=== PATIENT | male | born 1960 | race Caucasian/White ===

== ENCOUNTER 2017-12-28 20:13 | Inpatient (IN) | payer MEDICAID ==
[~2017-12-28] VITALS: Ht 162.6 cm; Wt 59.1 kg
[2017-12-28] MEDS ORDERED: albuterol 2.5 MG/3 ML nebule ONE (20:25)
[2017-12-28] MEDS ORDERED: albuterol 2.5 MG/3 ML nebule CONTNEB PRN (20:25)
[2017-12-28] MEDS ORDERED: albuterol 2.5 MG/3 ML nebule CONTNEB ONE (20:25)
[2017-12-28] MEDS ORDERED: methylPREDNISolone sod succ 125mg/2ml vial IV ONE (20:25)
[2017-12-28] MEDS ORDERED: normal saline 1000ML IV soln IVB ONE ×2 (20:35→21:05)
[2017-12-28] MEDS ORDERED: magnesium 4gm in 100ml NS 100 ML IV ONE (20:35)
[2017-12-28] MEDS: magnesium 1gm/100ml D5W IVPB 100 ML IV SCH ×2 (20:35→21:35)
[2017-12-28 20:44] LABS: BASOPHILS # (AUTO) 0.1 X10'3 (0-0.2); BASOPHILS % (AUTO) 0.7 % (0-1); EOSINOPHILS # (AUTO) 1.2 X10'3 (0-0.9); EOSINOPHILS % (AUTO) 12.8 % (0-6); HEMATOCRIT 46.4 % (42.0-52.0); HEMOGLOBIN 15.8 g/dl (14.0-17.9); LYMPHOCYTES # (AUTO) 3.2 X10'3 (1.1-4.8); LYMPHOCYTES % (AUTO) 35.3 % (21-51); MEAN CORPUSCULAR HEMOGLOBIN 29.5 PG (27.0-31.0); MEAN CORPUSCULAR HGB CONC 34.1 % (33.0-36.5); MEAN CORPUSCULAR VOLUME 86.4 FL (78-98); MEAN PLATELET VOLUME 6.3 FL (7.4-10.4); MONOCYTES # (AUTO) 0.9 X10'3 (0-0.9); MONOCYTES % (AUTO) 9.6 % (2-12); NEUTROPHILS # (AUTO) 3.8 X10'3 (1.8-7.7); NEUTROPHILS % (AUTO) 41.6 % (42-75); PLATELET COUNT 346 X10'3 (140-440); RED BLOOD COUNT 5.37 X10'6 (4.70-6.10); RED CELL DISTRIBUTION WIDTH 13.4 % (11.5-14.5); WHITE BLOOD COUNT 9.1 X10'3 (4.5-11.0)
[2017-12-28 20:51] LABS: ALANINE AMINOTRANSFERASE 36 U/L (12-78); ALBUMIN 4.5 G/DL (3.4-5.0); ALBUMIN/GLOBULIN RATIO 1.3 (1.1-1.5); ALKALINE PHOSPHATASE 92 IU/L (46-116); ANION GAP 11 (8-16); ASPARTATE AMINO TRANSFERASE 31 U/L (10-37); BILIRUBIN,TOTAL 0.4 MG/DL (0.1-1.0); BLOOD UREA NITROGEN 15 MG/DL (7-18); BUN/CREATININE RATIO 14.9 (5.4-32.0); CALCIUM 9.8 MG/DL (8.5-10.1); CHLORIDE 103 MMOL/L (99-107); CREATININE 1.01 MG/DL (0.60-1.10); GLUCOSE 102 MG/DL (70-104); SODIUM 143 MMOL/L (135-145); TOTAL CARBON DIOXIDE 29.3 MMOL/L (24-32); eGFR 76 ML/MIN
[2017-12-28 21:21] LABS: ETHANOL < 0.010 GM/DL (0.0-0.010)
[2017-12-28] MEDS ORDERED: HYDR-565 PO (21:57)
[2017-12-28] MEDS ORDERED: QUET-1 PO (21:57)
[2017-12-28] MEDS ORDERED: ALBU8HFA PO (21:57)
[2017-12-28] MEDS ORDERED: LISI-600 PO (21:57)
[2017-12-28] MEDS ORDERED: FLUO20CA39 PO (21:57)
[2017-12-28 22:15] LABS: URINE AMPHETAMINE SCREEN NEGATIVE (Neg); URINE BARBITUATE SCREEN NEGATIVE (Neg); URINE BENZODIAZEPINES SCREEN NEGATIVE (Neg); URINE CANNABINOID SCREEN POSITIVE (Neg); URINE COCAINE SCREEN NEGATIVE (Neg); URINE METHADONE SCREEN NEGATIVE (Neg); URINE OPIATE SCREEN POSITIVE (Neg); URINE PHENCYCLIDINE SCREEN NEGATIVE (Neg)
[2017-12-28] MEDS ORDERED: magnesium hydroxide 30ml (MOM) UD suspension PO PRN (22:30)
[2017-12-28] MEDS ORDERED: mag hydrox/Alum hydrox/simeth 30ml oral suspension PO PRN (22:30)
[2017-12-28] MEDS ORDERED: acetaminophen 325mg tablet PO PRN ×2 (22:30)
[2017-12-28] MEDS ORDERED: ondansetron/PF 4mg/2ml inj IV PRN (22:30)
[2017-12-28] MEDS ORDERED: LORazepam 2 mg/ml vial IV ONE (23:00)
[2017-12-28] MEDS ORDERED: morphine 2 MG/ML inj. syringe IV PRN (23:00)
[2017-12-28] MEDS: levoFLOXACIN 750MG TABLET PO SCH (23:03)
[2017-12-29] MEDS: HYDROcodone/acetaminophen 10/325mg tab PO SCH ×4 (02:00→20:06)
[2017-12-29] MEDS: methylPREDNISolone sod succ/PF 40mg inj. IV SCH ×4 (02:02→20:06)
[2017-12-29] MEDS: ipratropium/albuterol 3ml nebule NEB PRN ×3 (05:21→15:11)
[2017-12-29] MEDS: quetiapine 100mg tablet PO SCH (07:56)
[2017-12-29] MEDS: FLUoxetine 20mg capsule PO SCH (07:56)
[2017-12-29] MEDS: enoxaparin 40mg/0.4ml syringe SUBCUT SCH (07:57)
[2017-12-29] MEDS: lisinopril 20mg tablet PO SCH (07:57)
[2017-12-29 09:00] VITALS: BP 121/75
[2017-12-29 10:00] LABS: BASOPHILS % (AUTO) 0.1 % (0-1); EOSINOPHILS # (AUTO) 0.1 X10'3 (0-0.9); EOSINOPHILS % (AUTO) 1.2 % (0-6); HEMATOCRIT 39.4 % (42.0-52.0); HEMOGLOBIN 13.3 g/dl (14.0-17.9); LYMPHOCYTES # (AUTO) 0.6 X10'3 (1.1-4.8); LYMPHOCYTES % (AUTO) 5.2 % (21-51); MEAN CORPUSCULAR HEMOGLOBIN 29.6 PG (27.0-31.0); MEAN CORPUSCULAR HGB CONC 33.7 % (33.0-36.5); MEAN CORPUSCULAR VOLUME 87.9 FL (78-98); MEAN PLATELET VOLUME 6.5 FL (7.4-10.4); MONOCYTES # (AUTO) 0.1 X10'3 (0-0.9); MONOCYTES % (AUTO) 0.6 % (2-12); NEUTROPHILS % (AUTO) 92.9 % (42-75); PLATELET COUNT 291 X10'3 (140-440); RED BLOOD COUNT 4.48 X10'6 (4.70-6.10); RED CELL DISTRIBUTION WIDTH 13.6 % (11.5-14.5); WHITE BLOOD COUNT 11.9 X10'3 (4.5-11.0)
[2017-12-29 10:45] LABS: ALBUMIN 3.5 G/DL (3.4-5.0); ANION GAP 13 (8-16); BLOOD UREA NITROGEN 16 MG/DL (7-18); CALCIUM 8.7 MG/DL (8.5-10.1); CHLORIDE 105 MMOL/L (99-107); GLUCOSE 153 MG/DL (70-104); POTASSIUM 3.8 MMOL/L (3.5-5.1); SODIUM 141 MMOL/L (135-145); TOTAL CARBON DIOXIDE 22.7 MMOL/L (24-32); eGFR > 90 ML/MIN
[2017-12-29 11:00] VITALS: BP 101/61
[2017-12-29] MEDS: levoFLOXACIN 750MG TABLET PO SCH (11:16)
[2017-12-29] MEDS ORDERED: TIOT18CA3 PO (12:34)
[2017-12-29] MEDS ORDERED: QUET25TA34 PO (12:34)
[2017-12-29] MEDS ORDERED: ALBU18HF2 INH (12:34)
[2017-12-29] MEDS ORDERED: OMEP-50 PO (12:34)
[2017-12-29] MEDS ORDERED: FLUO-1 PO (12:34)
[2017-12-29] MEDS ORDERED: PRAV40TA3 PO (12:34)
[2017-12-29] MEDS ORDERED: BACL20TA2 PO (12:34)
[2017-12-29] MEDS ORDERED: GABA-532 PO (12:34)
[2017-12-29] MEDS ORDERED: ASPI-1130 PO (12:34)
[2017-12-29] MEDS ORDERED: PROM25TA14 PO (12:34)
[2017-12-29 15:00] VITALS: BP 102/72
[2017-12-29 19:00] VITALS: BP 126/92
[2017-12-29] MEDS: lactobacillus rhamnosus 10,000 MMU CELLS/CAPSULE PO SCH (20:06)
[2017-12-29] MEDS: gabapentin 300mg capsule PO SCH (21:29)
[2017-12-29] MEDS: QUEtiapine 25mg tablet PO SCH (21:30)
[2017-12-29] MEDS: atorvastatin 20mg tablet PO SCH (21:30)
[2017-12-29 23:00] VITALS: BP 137/52
[2017-12-30] MEDS: methylPREDNISolone sod succ/PF 40mg inj. IV SCH ×3 (01:41→15:56)
[2017-12-30] MEDS: HYDROcodone/acetaminophen 10/325mg tab PO SCH ×4 (01:41→19:56)
[2017-12-30 03:00] VITALS: BP 108/62
[2017-12-30 06:00] VITALS: BP 114/67
[2017-12-30 06:07] LABS: ALBUMIN 3.5 G/DL (3.4-5.0); ANION GAP 11 (8-16); BLOOD UREA NITROGEN 20 MG/DL (7-18); BUN/CREATININE RATIO 24.1 (5.4-32.0); CALCIUM 8.9 MG/DL (8.5-10.1); CHLORIDE 105 MMOL/L (99-107); CREATININE 0.83 MG/DL (0.60-1.10); GLUCOSE 153 MG/DL (70-104); POTASSIUM 4.3 MMOL/L (3.5-5.1); SODIUM 141 MMOL/L (135-145); eGFR > 90 ML/MIN
[2017-12-30 06:23] LABS: BASOPHILS % (AUTO) 0.2 % (0-1); EOSINOPHILS # (AUTO) 0.2 X10'3 (0-0.9); HEMATOCRIT 38.7 % (42.0-52.0); HEMOGLOBIN 12.9 g/dl (14.0-17.9); LYMPHOCYTES # (AUTO) 0.8 X10'3 (1.1-4.8); LYMPHOCYTES % (AUTO) 3.7 % (21-51); MEAN CORPUSCULAR HEMOGLOBIN 29.7 PG (27.0-31.0); MEAN CORPUSCULAR HGB CONC 33.5 % (33.0-36.5); MEAN CORPUSCULAR VOLUME 88.8 FL (78-98); MEAN PLATELET VOLUME 6.7 FL (7.4-10.4); MONOCYTES # (AUTO) 0.5 X10'3 (0-0.9); MONOCYTES % (AUTO) 2.7 % (2-12); NEUTROPHILS # (AUTO) 18.7 X10'3 (1.8-7.7); NEUTROPHILS % (AUTO) 92.4 % (42-75); PLATELET COUNT 308 X10'3 (140-440); RED BLOOD COUNT 4.36 X10'6 (4.70-6.10); RED CELL DISTRIBUTION WIDTH 13.8 % (11.5-14.5); WHITE BLOOD COUNT 20.3 X10'3 (4.5-11.0)
[2017-12-30] MEDS: quetiapine 100mg tablet PO SCH (08:00)
[2017-12-30] MEDS: QUEtiapine 25mg tablet PO SCH ×2 (08:00→19:55)
[2017-12-30] MEDS: FLUoxetine 20mg capsule PO SCH (08:06)
[2017-12-30] MEDS: lisinopril 20mg tablet PO SCH (08:06)
[2017-12-30] MEDS: lactobacillus rhamnosus 10,000 MMU CELLS/CAPSULE PO SCH ×2 (08:08→19:56)
[2017-12-30] MEDS: enoxaparin 40mg/0.4ml syringe SUBCUT SCH (08:08)
[2017-12-30] MEDS: ipratropium/albuterol 3ml nebule NEB PRN ×2 (09:01→21:14)
[2017-12-30 11:00] VITALS: BP 131/90
[2017-12-30] MEDS: levoFLOXACIN 750MG TABLET PO SCH (11:20)
[2017-12-30 15:00] VITALS: BP 128/89
[2017-12-30 19:00] VITALS: BP 119/75
[2017-12-30] MEDS: atorvastatin 20mg tablet PO SCH (22:14)
[2017-12-30] MEDS: gabapentin 300mg capsule PO SCH (22:14)
[2017-12-31] MEDS: methylPREDNISolone sod succ/PF 40mg inj. IV SCH ×3 (01:21→16:00)
[2017-12-31] MEDS: HYDROcodone/acetaminophen 10/325mg tab PO SCH ×4 (02:04→20:02)
[2017-12-31 03:00] VITALS: BP 115/78
[2017-12-31 06:00] VITALS: BP 127/87
[2017-12-31 06:36] LABS: BASOPHILS % (AUTO) 0 % (0-1); EOSINOPHILS # (AUTO) 0.2 X10'3 (0-0.9); EOSINOPHILS % (AUTO) 1.3 % (0-6); HEMATOCRIT 40.4 % (42.0-52.0); HEMOGLOBIN 13.6 g/dl (14.0-17.9); LYMPHOCYTES # (AUTO) 0.9 X10'3 (1.1-4.8); LYMPHOCYTES % (AUTO) 4.8 % (21-51); MEAN CORPUSCULAR HEMOGLOBIN 29.9 PG (27.0-31.0); MEAN CORPUSCULAR HGB CONC 33.6 % (33.0-36.5); MEAN CORPUSCULAR VOLUME 88.9 FL (78-98); MEAN PLATELET VOLUME 6.5 FL (7.4-10.4); MONOCYTES # (AUTO) 0.5 X10'3 (0-0.9); MONOCYTES % (AUTO) 2.6 % (2-12); NEUTROPHILS # (AUTO) 17.1 X10'3 (1.8-7.7); NEUTROPHILS % (AUTO) 91.3 % (42-75); PLATELET COUNT 327 X10'3 (140-440); RED BLOOD COUNT 4.54 X10'6 (4.70-6.10); RED CELL DISTRIBUTION WIDTH 14.2 % (11.5-14.5); WHITE BLOOD COUNT 18.8 X10'3 (4.5-11.0)
[2017-12-31 06:43] LABS: ALBUMIN 3.5 G/DL (3.4-5.0); ANION GAP 11 (8-16); BLOOD UREA NITROGEN 21 MG/DL (7-18); BUN/CREATININE RATIO 26.6 (5.4-32.0); CALCIUM 8.9 MG/DL (8.5-10.1); CHLORIDE 103 MMOL/L (99-107); CREATININE 0.79 MG/DL (0.60-1.10); GLUCOSE 136 MG/DL (70-104); POTASSIUM 4.2 MMOL/L (3.5-5.1); SODIUM 142 MMOL/L (135-145); TOTAL CARBON DIOXIDE 28.2 MMOL/L (24-32); eGFR > 90 ML/MIN
[2017-12-31] MEDS: lisinopril 20mg tablet PO SCH (08:42)
[2017-12-31] MEDS: FLUoxetine 20mg capsule PO SCH (08:42)
[2017-12-31] MEDS: lactobacillus rhamnosus 10,000 MMU CELLS/CAPSULE PO SCH ×2 (08:42→20:01)
[2017-12-31] MEDS: enoxaparin 40mg/0.4ml syringe SUBCUT SCH (08:42)
[2017-12-31] MEDS: ipratropium/albuterol 3ml nebule NEB PRN ×2 (08:54→14:29)
[2017-12-31 11:00] VITALS: BP 122/84
[2017-12-31] MEDS: levoFLOXACIN 750MG TABLET PO SCH (11:26)
[2017-12-31 15:00] VITALS: BP 132/88
[2017-12-31 19:00] VITALS: BP 120/89
[2017-12-31] MEDS: QUEtiapine 25mg tablet PO SCH (20:01)
[2017-12-31] MEDS: atorvastatin 20mg tablet PO SCH (20:18)
[2017-12-31] MEDS: gabapentin 300mg capsule PO SCH (20:18)
[2017-12-31 22:00] VITALS: BP 124/83
[2018-01-01] MEDS: methylPREDNISolone sod succ/PF 40mg inj. IV SCH ×2 (00:09→08:21)
[2018-01-01] MEDS: HYDROcodone/acetaminophen 10/325mg tab PO SCH ×2 (02:06→08:22)
[2018-01-01 03:00] VITALS: BP 127/86
[2018-01-01 06:00] VITALS: BP 116/80
[2018-01-01 07:03] LABS: BASOPHILS % (AUTO) 0.1 % (0-1); EOSINOPHILS # (AUTO) 0.1 X10'3 (0-0.9); EOSINOPHILS % (AUTO) 1.1 % (0-6); HEMATOCRIT 40.8 % (42.0-52.0); HEMOGLOBIN 13.6 g/dl (14.0-17.9); LYMPHOCYTES % (AUTO) 8.2 % (21-51); MEAN CORPUSCULAR HEMOGLOBIN 29.4 PG (27.0-31.0); MEAN CORPUSCULAR HGB CONC 33.3 % (33.0-36.5); MEAN CORPUSCULAR VOLUME 88.3 FL (78-98); MEAN PLATELET VOLUME 6.2 FL (7.4-10.4); MONOCYTES # (AUTO) 0.4 X10'3 (0-0.9); MONOCYTES % (AUTO) 3.5 % (2-12); NEUTROPHILS # (AUTO) 10.8 X10'3 (1.8-7.7); NEUTROPHILS % (AUTO) 87.1 % (42-75); PLATELET COUNT 325 X10'3 (140-440); RED BLOOD COUNT 4.63 X10'6 (4.70-6.10); WHITE BLOOD COUNT 12.4 X10'3 (4.5-11.0)
[2018-01-01 07:17] LABS: ALBUMIN 3.4 G/DL (3.4-5.0); ANION GAP 7 (8-16); BLOOD UREA NITROGEN 20 MG/DL (7-18); BUN/CREATININE RATIO 23.5 (5.4-32.0); CALCIUM 8.7 MG/DL (8.5-10.1); CHLORIDE 104 MMOL/L (99-107); CREATININE 0.85 MG/DL (0.60-1.10); GLUCOSE 139 MG/DL (70-104); POTASSIUM 4.2 MMOL/L (3.5-5.1); SODIUM 141 MMOL/L (135-145); TOTAL CARBON DIOXIDE 29.8 MMOL/L (24-32); eGFR > 90 ML/MIN
[2018-01-01] MEDS: ipratropium/albuterol 3ml nebule NEB PRN (07:52)
[2018-01-01] MEDS: FLUoxetine 20mg capsule PO SCH (08:21)
[2018-01-01] MEDS: lisinopril 20mg tablet PO SCH (08:21)
[2018-01-01] MEDS: lactobacillus rhamnosus 10,000 MMU CELLS/CAPSULE PO SCH (08:21)
[2018-01-01] MEDS: enoxaparin 40mg/0.4ml syringe SUBCUT SCH (08:22)
[2018-01-01] MEDS ORDERED: LEVO500T2 PO (09:37)
[2018-01-01] MEDS ORDERED: PRED10TA23 PO (09:37)
[2018-01-01] MEDS: levoFLOXACIN 750MG TABLET PO SCH (11:00)
== END 2018-01-01 11:31 | disposition home or self-care (01) | DRG 140 ==
LOC: ER 20:15 → ED HOLD 22:30 → PCU 3S 12-29 08:55
PROVIDERS: ADMIT Internal Medicine; ATTEND Family Medicine
DX: J44.1 Chronic obstructive pulmonary disease with (acute) exacerbation (principal); J96.21 Acute and chronic respiratory failure with hypoxia; Z99.81 Dependence on supplemental oxygen; J44.0 Chronic obstructive pulmonary disease with (acute) lower respiratory infection; F32.9 Major depressive disorder, single episode, unspecified; F41.9 Anxiety disorder, unspecified; G89.4 Chronic pain syndrome; I10 Essential (primary) hypertension; J20.9 Acute bronchitis, unspecified; M54.5 Low back pain; M16.11 Unilateral primary osteoarthritis, right hip; Z82.5 Family history of asthma and other chronic lower respiratory diseases; Z87.891 Personal history of nicotine dependence; Z79.899 Other long term (current) drug therapy
CPT/HCPCS: 36415; 71045; 80048; 80053; 80305; 80320; 83880; 84484; 85025; 87070; 93005; 94640; 94760; 96365; 96375; 99291; A6258; J1650; J2060; J2405; J2920; J2930; J3475; J7030

== ENCOUNTER 2018-09-04 01:10 | Inpatient (IN) | payer MEDICAID ==
[2018-09-04] VITALS (20 sets, daily range): BP systolic 90–126; BP diastolic 54–98
[~2018-09-04] VITALS: Ht 162.6 cm; Wt 68.4 kg
[~2018-09-04 01:10] MED LIST: ALBU18HF2 INH; ALBU8HFA PO; ASPI-1130 PO; BACL20TA2 PO; FLUO20CA39 PO; GABA-532 PO; HYDR-4353 PO; LISI-600 PO; OMEP-50 PO; PRAV40TA3 PO; PROM25TA14 PO; QUET-1 PO; QUET25TA34 PO; TIOT18CA3 PO
--- NOTE | 2018-09-04 01:22 | NUR ---
patient intubated. OG tube inserted, Dr. Winkler inserting central line now.
[2018-09-04] MEDS ORDERED: dexamethasone sod phosphate 10mg/ml inj IV STA (01:26)
[2018-09-04] MEDS ORDERED: albuterol 2.5 MG/3 ML nebule ONE (01:28)
[2018-09-04] MEDS ORDERED: MIDAZolam 5mg/ml 2ml vial IV ONE (01:30)
[2018-09-04] MEDS ORDERED: albuterol 2.5 MG/3 ML nebule NEB ONE (01:35)
[2018-09-04] MEDS: propofol 1000mg/100ml bottle 100 ML IV PRN ×2 (01:52→04:57)
[2018-09-04 02:06] LABS: ABG BASE EXCESS -3.5 mmol/L (-2.0-3.0); ABG HCO3 25.1 mmol/L (22.0-26.0); ABG OXYGEN SATURATION 95.6 % (95-98); ABG PH (T) 7.242 (7.350-7.450); ABG PO2 (T) 86.6 mmHg (83-108); FCOHb 0.4 % (0.5-1.5); FMetHb 0.3 % (0.3-1.12); FO2Hb 94.9 % (94-100); MINUTE VOLUME 8 L/min; PATIENT TEMPERATURE 36.2; PEEP 5 cm H2O; RESPIRATORY RATE 20 b/min; RESPIRATORY RATE (OBSERVED) 20 b/min; TIDAL VOLUME 426 mL
[2018-09-04 02:15] LABS: BASOPHILS # (AUTO) 0.1 X10'3 (0-0.2); BASOPHILS % (AUTO) 0.8 % (0-1); EOSINOPHILS # (AUTO) 0.8 X10'3 (0-0.9); EOSINOPHILS % (AUTO) 11.9 % (0-6); HEMATOCRIT 40.2 % (42.0-52.0); HEMOGLOBIN 12.9 g/dl (14.0-17.9); LYMPHOCYTES # (AUTO) 2.9 X10'3 (1.1-4.8); LYMPHOCYTES % (AUTO) 40.2 % (21-51); MEAN CORPUSCULAR HEMOGLOBIN 26.9 PG (27.0-31.0); MEAN CORPUSCULAR HGB CONC 32.2 g/dL (33.0-36.5); MEAN CORPUSCULAR VOLUME 83.6 FL (78-98); MEAN PLATELET VOLUME 6.3 FL (7.4-10.4); MONOCYTES # (AUTO) 0.7 X10'3 (0-0.9); MONOCYTES % (AUTO) 9.2 % (2-12); NEUTROPHILS # (AUTO) 2.7 X10'3 (1.8-7.7); NEUTROPHILS % (AUTO) 37.9 % (42-75); PLATELET COUNT 312 X10'3 (140-440); RED BLOOD COUNT 4.81 X10'6 (4.70-6.10); RED CELL DISTRIBUTION WIDTH 14.8 % (11.5-14.5); WHITE BLOOD COUNT 7.1 X10'3 (4.5-11.0)
[2018-09-04 02:15] LABS: CLARITY,URINE SLIGHTLY CLOUDY (Clear); COLOR,URINE YELLOW (Yellow); GLUCOSE, URINE NEGATIVE (Neg); KETONES,URINE NEGATIVE (Neg); LEUKOCYTE ESTERASE ,URINE NEGATIVE (Neg); NITRITES, URINE NEGATIVE (Neg); OCCULT BLOOD,URINE SMALL (Neg); PH,URINE 5.5 (4.8-8.0); PROTEIN,URINE 30 mg/dl (Neg); UROBILINOGEN,URINE 0.2 E.U/dL (0.2-1.0)
[2018-09-04 02:16] LABS: UA COLLECTION TYPE FOLEY CATH
[2018-09-04 02:21] LABS: BACTERIA,URINE FEW /HPF (Neg); MUCUS STRANDS MODERATE /LPF (Neg); RBC,URINE 0-2 /HPF (0-2); SQUAMOUS EPITHELIAL CELL,UR FEW /LPF (FEW)
[2018-09-04 02:22] LABS: TRANSITIONAL EPI CELLS,URINE FEW /HPF; WBC,URINE 0-4 /HPF (0-4)
[2018-09-04 02:23] LABS: ALANINE AMINOTRANSFERASE 23 U/L (12-78); ALBUMIN 3.7 G/DL (3.4-5.0); ALBUMIN/GLOBULIN RATIO 1.2 (1.1-1.5); ALKALINE PHOSPHATASE 68 IU/L (46-116); ANION GAP 10 (8-16); ASPARTATE AMINO TRANSFERASE 23 U/L (10-37); BILIRUBIN,TOTAL 0.3 MG/DL (0.1-1.0); BLOOD UREA NITROGEN 20 MG/DL (7-18); BUN/CREATININE RATIO 24.7 (5.4-32.0); CHLORIDE 104 MMOL/L (99-107); CREATININE 0.81 MG/DL (0.60-1.10); GLUCOSE 134 MG/DL (70-104); SODIUM 141 MMOL/L (135-145); TOTAL CARBON DIOXIDE 27.2 MMOL/L (24-32); TOTAL PROTEIN 6.7 G/DL (6.4-8.2); eGFR > 90 ML/MIN
[2018-09-04 02:24] LABS: POTASSIUM 3.5 MMOL/L (3.5-5.1)
[2018-09-04 02:26] LABS: PARTIAL THROMBOPLASTIN TIME 21 SECONDS (22-32)
[2018-09-04] MEDS ORDERED: midazolam 100mg in NS 100ml 100 ML IV PRN (02:28)
[2018-09-04] MEDS ORDERED: midazolam 2 mg/2 ml injection IV ONE (02:30)
[2018-09-04 02:31] LABS: MAGNESIUM 1.7 MG/DL (1.5-2.4); PHOSPHORUS 5.2 MG/DL (2.3-4.5); TRIGLYCERIDES 171 MG/DL (20-135)
[2018-09-04] MEDS ORDERED: albuterol 2.5 MG/3 ML nebule NEB PRN (02:50)
[2018-09-04] MEDS ORDERED: magnesium hydroxide 30ml (MOM) UD suspension PO PRN (02:50)
[2018-09-04] MEDS ORDERED: acetaminophen 325mg tablet PO PRN ×2 (02:50)
[2018-09-04] MEDS ORDERED: magnesium 4gm in 100ml NS 100 ML IV PRN (02:50)
[2018-09-04] MEDS ORDERED: magnesium Cl slow-release 64mg tablet PO PRN (02:50)
[2018-09-04] MEDS ORDERED: ondansetron/PF 4mg/2ml inj IV PRN (02:50)
[2018-09-04] MEDS ORDERED: magnesium 2GM in 50ml NS 50 ML IV PRN (02:50)
[2018-09-04] MEDS ORDERED: acetaminophen 650mg rectal suppository RC PRN (02:50)
[2018-09-04 03:56] LABS: TROPONIN I < 0.04 NG/ML (0.0-0.05)
[2018-09-04 04:01] LABS: D-DIMER 5.76 MG/L FEU (0-0.50)
[2018-09-04] MEDS: ipratropium/albuterol 3ml nebule NEB SCH ×6 (04:11→22:59)
[2018-09-04] MEDS: normal saline 1000ml 1,000 ML IV SCH ×2 (04:25→16:13)
[2018-09-04] MEDS: midazolam 100mg in NS 100ml 100 ML IV PRN ×2 (04:26→22:04)
[2018-09-04] MEDS: levoFLOXACIN-Levaquin 500mg/D5 100 ML IV SCH ×2 (04:26→08:13)
[2018-09-04] MEDS: FENTANYL-0.9 % NACL/PF 100 ML IV PRN (04:27)
[2018-09-04 05:01] LABS: ABG BASE EXCESS 0.1 mmol/L (-2.0-3.0); ABG HCO3 20.9 mmol/L (22.0-26.0); ABG OXYGEN SATURATION 93.9 % (95-98); ABG PCO2 (T) 24.1 mmHg (35.0-48.0); ABG PH (T) 7.556 (7.350-7.450); ABG PO2 (T) 56.8 mmHg (83-108); ALLEN'S TEST Positive; FCOHb 0.3 % (0.5-1.5); FMetHb 0.1 % (0.3-1.12); FO2Hb 93.5 % (94-100); MINUTE VOLUME 17 L/min; PATIENT TEMPERATURE 36.5; PEEP 5 cm H2O; RESPIRATORY RATE 22 b/min; RESPIRATORY RATE (OBSERVED) 22 b/min; TIDAL VOLUME 710 mL; TOTAL HEMOGLOBIN 13.5 G/dl (14.0-18.0)
[2018-09-04] MEDS ORDERED: rocuronium 10mg/ml inj IV ONE (06:00)
[2018-09-04] MEDS ORDERED: etomidate 2mg/ml inj. ONE (06:00)
--- NOTE | 2018-09-04 06:29 | NUR ---
Patient in room ICU 2041. I have received report from LISA Alicia and had the opportunity to ask questions and assume patient care.
[2018-09-04] MEDS ORDERED: docusate sodium 100mg/10ml UD cup PO SCH (08:00)
[2018-09-04] MEDS: ESOMEPRAZOLE 40 MG VIAL IV SCH (08:13)
[2018-09-04] MEDS: hydrocortisone sod succ/PF 100mg/2ml inj. IV SCH ×2 (08:14→16:13)
[2018-09-04] MEDS: enoxaparin 40mg/0.4ml syringe SUBCUT SCH (08:14)
[2018-09-04] MEDS ORDERED: ALBUTEROL PO PRN (10:35)
[2018-09-04] MEDS ORDERED: acetaminophen 325mg tablet OGT PRN ×2 (10:37)
[2018-09-04] MEDS ORDERED: magnesium hydroxide 30ml (MOM) UD suspension OGT PRN (10:38)
[2018-09-04] MEDS: dexmedetomidin/NS 400mcg/100ml 100 ML IV SCH ×2 (11:24→20:00)
[2018-09-04] MEDS: FLUoxetine 20mg capsule PO SCH (11:25)
[2018-09-04] MEDS: lisinopril 20mg tablet PO SCH (11:25)
[2018-09-04] MEDS: aspirin 81mg tablet.DR PO SCH (11:25)
[2018-09-04] MEDS: quetiapine 100mg tablet PO SCH (11:25)
[2018-09-04] MEDS: gabapentin 300mg capsule PO SCH ×3 (11:25→21:06)
--- NOTE | 2018-09-04 11:41 | NUR ---
TF Consult: OGTF to start today per MD. Pt intubated admit w/ SOB COPD exacerbation. Hx COPD, smoker on home O2, HTN, CVA. Likely extubation tomorrow per MD. Will monitor for TF tolerance; recs below. Rec: 1. OGTF using Vital High Protein at 70ml/hr goal; to provide 1680ml fluid, 1680kcals, 1411ml free water, and 147g protein. Initiate at 20ml/hr and advance 20ml Q8 to goal as tolerated. 2. water flush 150ml Q4 3. prealbumin Q /, daily wts 4. advance diet to heart healthy upon extubation Addendum: 09/04/18 at [address] Amended: Links added.
[2018-09-04] MEDS ORDERED: NORepinephrine 8mg/ 250ml NS 250 ML IV ONE (13:13)
[2018-09-04] MEDS ORDERED: NORepinephrine 8mg/ 250ml NS 250 ML IV SCH (13:25)
[2018-09-04] MEDS ORDERED: normal saline 500ml IV soln 1,000 ML IV SCH (13:25)
--- NOTE | 2018-09-04 18:29 | NUR ---
Problems reprioritized. Patient report given, questions answered & plan of care reviewed with LISA Rodriguez.
--- NOTE | 2018-09-04 18:34 | NUR ---
Patient in room ICU 2041. I have received report from LISA Juan and had the opportunity to ask questions and assume patient care.
[2018-09-04] MEDS: docusate sodium 100mg/10ml UD cup OGT SCH (20:00)
[2018-09-04] MEDS: pravastatin 40mg tablet PO SCH (21:06)
[2018-09-04] MEDS: QUEtiapine 25mg tablet PO SCH (21:06)
[2018-09-05] VITALS (23 sets, daily range): BP systolic 87–156; BP diastolic 54–93
[2018-09-05] MEDS: hydrocortisone sod succ/PF 100mg/2ml inj. IV SCH ×3 (00:32→16:31)
[2018-09-05] MEDS: FENTANYL-0.9 % NACL/PF 100 ML IV PRN (00:33)
[2018-09-05] MEDS: ipratropium/albuterol 3ml nebule NEB SCH ×6 (02:48→23:32)
[2018-09-05 03:06] LABS: ABG BASE EXCESS -3.9 mmol/L (-2.0-3.0); ABG HCO3 20.1 mmol/L (22.0-26.0); ABG PCO2 (T) 33.1 mmHg (35.0-48.0); ABG PH (T) 7.401 (7.350-7.450); ABG PO2 (T) 70.9 mmHg (83-108); ALLEN'S TEST Positive; FCOHb 0.3 % (0.5-1.5); FMetHb 0.2 % (0.3-1.12); FO2Hb 93.5 % (94-100); MINUTE VOLUME 11 L/min; PATIENT TEMPERATURE 36.9; PEEP 5 cm H2O; RESPIRATORY RATE 12 b/min; RESPIRATORY RATE (OBSERVED) 19 b/min; TOTAL HEMOGLOBIN 12.6 G/dl (14.0-18.0)
[2018-09-05 03:30] LABS: BASOPHILS % (AUTO) 0.1 % (0-1); EOSINOPHILS % (AUTO) 0 % (0-6); HEMATOCRIT 34.5 % (42.0-52.0); HEMOGLOBIN 11.3 g/dl (14.0-17.9); LYMPHOCYTES # (AUTO) 1.1 X10'3 (1.1-4.8); LYMPHOCYTES % (AUTO) 8.6 % (21-51); MEAN CORPUSCULAR HEMOGLOBIN 27.2 PG (27.0-31.0); MEAN CORPUSCULAR HGB CONC 32.9 g/dL (33.0-36.5); MEAN CORPUSCULAR VOLUME 82.6 FL (78-98); MEAN PLATELET VOLUME 6.4 FL (7.4-10.4); MONOCYTES # (AUTO) 0.7 X10'3 (0-0.9); NEUTROPHILS # (AUTO) 10.7 X10'3 (1.8-7.7); NEUTROPHILS % (AUTO) 85.3 % (42-75); PLATELET COUNT 281 X10'3 (140-440); RED BLOOD COUNT 4.17 X10'6 (4.70-6.10); WHITE BLOOD COUNT 12.5 X10'3 (4.5-11.0)
[2018-09-05 03:41] LABS: ALANINE AMINOTRANSFERASE 17 U/L (12-78); ALBUMIN 3.2 G/DL (3.4-5.0); ALBUMIN/GLOBULIN RATIO 1.3 (1.1-1.5); ALKALINE PHOSPHATASE 57 IU/L (46-116); ANION GAP 6 (8-16); ASPARTATE AMINO TRANSFERASE 11 U/L (10-37); BILIRUBIN,TOTAL 0.4 MG/DL (0.1-1.0); BLOOD UREA NITROGEN 18 MG/DL (7-18); BUN/CREATININE RATIO 27.3 (5.4-32.0); CALCIUM 8.5 MG/DL (8.5-10.1); CHLORIDE 106 MMOL/L (99-107); CREATININE 0.66 MG/DL (0.60-1.10); GLUCOSE 126 MG/DL (70-104); MAGNESIUM 1.8 MG/DL (1.5-2.4); PHOSPHORUS 2.7 MG/DL (2.3-4.5); POTASSIUM 3.8 MMOL/L (3.5-5.1); PREALBUMIN 24.9 MG/DL (19-36); SODIUM 137 MMOL/L (135-145); TOTAL CARBON DIOXIDE 24.7 MMOL/L (24-32); TOTAL PROTEIN 5.7 G/DL (6.4-8.2); TRIGLYCERIDES 142 MG/DL (20-135); eGFR > 90 ML/MIN
[2018-09-05] MEDS: normal saline 1000ml 1,000 ML IV SCH (05:30)
[2018-09-05] MEDS: dexmedetomidin/NS 400mcg/100ml 100 ML IV SCH (05:41)
--- NOTE | 2018-09-05 06:26 | NUR ---
Problems reprioritized. Patient report given, questions answered & plan of care reviewed with LISA Shah.
--- NOTE | 2018-09-05 06:30 | NUR ---
Patient in room ICU 2041. I have received report from Jennifer GONZALEZ and had the opportunity to ask questions and assume patient care.
[2018-09-05] MEDS ORDERED: TIOTROPIUM BROMIDE 18 MCG PO SCH (08:00)
[2018-09-05] MEDS ORDERED: mineral oil/petrolatum ophthal oint EACHEYE SCH (08:00)
[2018-09-05] MEDS: lisinopril 20mg tablet PO SCH (08:00)
[2018-09-05] MEDS: mineral oil/petrolatum ophthal oint EACHEYE SCH ×3 (08:00→20:00)
[2018-09-05] MEDS: ESOMEPRAZOLE 40 MG VIAL IV SCH (08:53)
[2018-09-05] MEDS: FLUoxetine 20mg capsule PO SCH (08:54)
[2018-09-05] MEDS: enoxaparin 40mg/0.4ml syringe SUBCUT SCH (08:54)
[2018-09-05] MEDS: aspirin 81mg tablet.DR PO SCH (08:54)
[2018-09-05] MEDS: docusate sodium 100mg/10ml UD cup OGT SCH ×2 (08:54→20:33)
[2018-09-05] MEDS: gabapentin 300mg capsule PO SCH ×3 (08:54→20:33)
[2018-09-05] MEDS: quetiapine 100mg tablet PO SCH (08:54)
[2018-09-05] MEDS: levoFLOXACIN-Levaquin 500mg/D5 100 ML IV SCH (08:55)
--- NOTE | 2018-09-05 10:00 | NUR ---
extubated without problems to 2 litre nasal cannula
[2018-09-05] MEDS ORDERED: IBUP-1986 PO (12:39)
[2018-09-05] MEDS ORDERED: HYDR-3686 PO (12:43)
[2018-09-05] MEDS ORDERED: ALBU2.5V10 NEB (13:04)
[2018-09-05] MEDS: HYDROcodone/acetaminophen 10/325mg tab PO PRN ×2 (13:48→20:34)
--- NOTE | 2018-09-05 15:05 | NUR ---
Problems reprioritized. Patient report given, questions answered & plan of care reviewed with Jenna Loyd RN.
--- NOTE | 2018-09-05 18:10 | NUR ---
Patient in room ICU 2041. I have received report from LISA Mobley and had the opportunity to ask questions and assume patient care.
--- NOTE | 2018-09-05 18:18 | NUR ---
Problems reprioritized. Patient report given, questions answered & plan of care reviewed with [].
--- NOTE | 2018-09-05 18:19 | NUR ---
Problems reprioritized. Patient report given, questions answered & plan of care reviewed with Jennifer Cardenas.
[2018-09-05] MEDS: pravastatin 40mg tablet PO SCH (20:33)
[2018-09-05] MEDS: QUEtiapine 25mg tablet PO SCH (20:33)
[2018-09-05] MEDS: lactobacillus rhamnosus 10,000 MMU CELLS/CAPSULE PO SCH (20:33)
[2018-09-06] VITALS (24 sets, daily range): BP systolic 122–156; BP diastolic 79–108
[2018-09-06] MEDS: hydrocortisone sod succ/PF 100mg/2ml inj. IV SCH ×2 (00:08→08:38)
[2018-09-06] MEDS: mineral oil/petrolatum ophthal oint EACHEYE SCH ×3 (02:00→14:00)
[2018-09-06] MEDS: ipratropium/albuterol 3ml nebule NEB SCH ×6 (03:00→23:00)
[2018-09-06] MEDS: HYDROcodone/acetaminophen 10/325mg tab PO PRN ×4 (03:22→20:48)
[2018-09-06 04:02] LABS: BASOPHILS % (AUTO) 0.3 % (0-1); EOSINOPHILS % (AUTO) 0.2 % (0-6); HEMATOCRIT 32.8 % (42.0-52.0); LYMPHOCYTES # (AUTO) 1.4 X10'3 (1.1-4.8); LYMPHOCYTES % (AUTO) 14.1 % (21-51); MEAN CORPUSCULAR HEMOGLOBIN 28.1 PG (27.0-31.0); MEAN CORPUSCULAR HGB CONC 33.5 g/dL (33.0-36.5); MEAN CORPUSCULAR VOLUME 83.9 FL (78-98); MEAN PLATELET VOLUME 6.5 FL (7.4-10.4); MONOCYTES # (AUTO) 0.6 X10'3 (0-0.9); MONOCYTES % (AUTO) 6.3 % (2-12); NEUTROPHILS # (AUTO) 7.9 X10'3 (1.8-7.7); NEUTROPHILS % (AUTO) 79.1 % (42-75); PLATELET COUNT 287 X10'3 (140-440); RED CELL DISTRIBUTION WIDTH 15.3 % (11.5-14.5); WHITE BLOOD COUNT 9.9 X10'3 (4.5-11.0)
[2018-09-06 04:09] LABS: ALANINE AMINOTRANSFERASE 18 U/L (12-78); ALBUMIN 3.2 G/DL (3.4-5.0); ALBUMIN/GLOBULIN RATIO 1.2 (1.1-1.5); ALKALINE PHOSPHATASE 55 IU/L (46-116); ANION GAP 6 (8-16); ASPARTATE AMINO TRANSFERASE 13 U/L (10-37); BILIRUBIN,TOTAL 0.3 MG/DL (0.1-1.0); BLOOD UREA NITROGEN 15 MG/DL (7-18); BUN/CREATININE RATIO 23.8 (5.4-32.0); CALCIUM 8.5 MG/DL (8.5-10.1); CHLORIDE 108 MMOL/L (99-107); CREATININE 0.63 MG/DL (0.60-1.10); GLUCOSE 96 MG/DL (70-104); MAGNESIUM 2.2 MG/DL (1.5-2.4); PHOSPHORUS 2.6 MG/DL (2.3-4.5); POTASSIUM 3.6 MMOL/L (3.5-5.1); SODIUM 141 MMOL/L (135-145); TOTAL CARBON DIOXIDE 27.5 MMOL/L (24-32); TOTAL PROTEIN 5.8 G/DL (6.4-8.2); eGFR > 90 ML/MIN
--- NOTE | 2018-09-06 06:15 | NUR ---
Patient in room ICU 2041. I have received report from materials handler and had the opportunity to ask questions and assume patient care.
--- NOTE | 2018-09-06 06:20 | NUR ---
Problems reprioritized. Patient report given, questions answered & plan of care reviewed with LISA Burnham.
[2018-09-06] MEDS: lisinopril 20mg tablet PO SCH (08:37)
[2018-09-06] MEDS: aspirin 81mg tablet.DR PO SCH (08:37)
[2018-09-06] MEDS: gabapentin 300mg capsule PO SCH ×3 (08:37→20:47)
[2018-09-06] MEDS: lactobacillus rhamnosus 10,000 MMU CELLS/CAPSULE PO SCH ×2 (08:37→20:47)
[2018-09-06] MEDS: FLUoxetine 20mg capsule PO SCH ×2 (08:37→20:00)
[2018-09-06] MEDS: docusate sodium 100mg/10ml UD cup OGT SCH (08:37)
[2018-09-06] MEDS: enoxaparin 40mg/0.4ml syringe SUBCUT SCH (08:38)
[2018-09-06] MEDS: levoFLOXACIN 500mg tablet PO SCH (14:42)
--- NOTE | 2018-09-06 18:11 | NUR ---
Problems reprioritized. Patient report given, questions answered & plan of care reviewed with ONCOMING SHIFT.
--- NOTE | 2018-09-06 18:12 | NUR ---
Patient in room ICU 2041. I have received report from Ana GONZALEZ and had the opportunity to ask questions and assume patient care. Pt resting in bed on 2LNC with spo2 at 96%, Central line and PIV saline locked, all monitoring alarms audible, all personal belongings within reach, non skid socks on, call light in reach. See interventions for further information. Will continue to monitor.
[2018-09-06] MEDS ORDERED: hydrOXYzine 25 MG tablet PO PRN (19:45)
[2018-09-06] MEDS: docusate sod 100mg capsule PO SCH (20:00)
[2018-09-06] MEDS: pravastatin 40mg tablet PO SCH (20:47)
[2018-09-06] MEDS: QUEtiapine 25mg tablet PO SCH (20:47)
--- NOTE | 2018-09-06 21:48 | NUR ---
Bed bath completed, pt awake and watching TV. No s/s of distress. Will continue to monitor.
[2018-09-07] VITALS (7 sets, daily range): BP systolic 118–156; BP diastolic 75–97
[2018-09-07] MEDS: ipratropium/albuterol 3ml nebule NEB SCH ×6 (02:37→23:02)
--- NOTE | 2018-09-07 02:45 | NUR ---
I got report from Verito from the ICU about the patient and I will give a verbal report to Coleen GONZALEZ who is going to be taking care of the patient in room 4013B.
--- NOTE | 2018-09-07 02:46 | NUR ---
Problems reprioritized. Patient report given, questions answered & plan of care reviewed with Marnie GONZALEZ. Pt to transfer to room 6291A.
--- NOTE | 2018-09-07 02:57 | NUR ---
Patient in room ICU 2041. I have received report from LISA Dye and had the opportunity to ask questions and assume patient care.
--- NOTE | 2018-09-07 03:00 | NUR ---
Pt transferred via wheelchair, no tele per orders. pt stable on transfer, all belongings with pt.
[2018-09-07] MEDS: HYDROcodone/acetaminophen 10/325mg tab PO PRN ×4 (03:24→21:18)
[2018-09-07 05:03] LABS: BASOPHILS # (AUTO) 0.1 X10'3 (0-0.2); BASOPHILS % (AUTO) 0.8 % (0-1); EOSINOPHILS # (AUTO) 0.2 X10'3 (0-0.9); EOSINOPHILS % (AUTO) 2.4 % (0-6); HEMOGLOBIN 11.4 g/dl (14.0-17.9); LYMPHOCYTES # (AUTO) 3.4 X10'3 (1.1-4.8); LYMPHOCYTES % (AUTO) 41.3 % (21-51); MEAN CORPUSCULAR HEMOGLOBIN 28.8 PG (27.0-31.0); MEAN CORPUSCULAR HGB CONC 34.5 g/dL (33.0-36.5); MEAN CORPUSCULAR VOLUME 83.5 FL (78-98); MEAN PLATELET VOLUME 6.5 FL (7.4-10.4); MONOCYTES # (AUTO) 0.8 X10'3 (0-0.9); MONOCYTES % (AUTO) 9.6 % (2-12); NEUTROPHILS # (AUTO) 3.8 X10'3 (1.8-7.7); NEUTROPHILS % (AUTO) 45.9 % (42-75); PLATELET COUNT 256 X10'3 (140-440); RED BLOOD COUNT 3.96 X10'6 (4.70-6.10); WHITE BLOOD COUNT 8.2 X10'3 (4.5-11.0)
[2018-09-07 05:50] LABS: ALANINE AMINOTRANSFERASE 21 U/L (12-78); ALBUMIN 3.1 G/DL (3.4-5.0); ALBUMIN/GLOBULIN RATIO 1.1 (1.1-1.5); ALKALINE PHOSPHATASE 54 IU/L (46-116); ANION GAP 6 (8-16); ASPARTATE AMINO TRANSFERASE 15 U/L (10-37); BILIRUBIN,TOTAL 0.2 MG/DL (0.1-1.0); BLOOD UREA NITROGEN 17 MG/DL (7-18); CALCIUM 8.7 MG/DL (8.5-10.1); CHLORIDE 105 MMOL/L (99-107); CREATININE 0.74 MG/DL (0.60-1.10); GLUCOSE 83 MG/DL (70-104); PHOSPHORUS 3.7 MG/DL (2.3-4.5); POTASSIUM 3.3 MMOL/L (3.5-5.1); SODIUM 141 MMOL/L (135-145); TOTAL CARBON DIOXIDE 30.5 MMOL/L (24-32); TOTAL PROTEIN 5.9 G/DL (6.4-8.2); eGFR > 90 ML/MIN
--- NOTE | 2018-09-07 06:15 | NUR ---
Patient in room ORTHO 4013. I have received report from Coleen GONZALEZ and had the opportunity to ask questions and assume patient care.
--- NOTE | 2018-09-07 06:19 | NUR ---
Problems reprioritized. Patient report given, questions answered & plan of care reviewed with LISA Roy.
[2018-09-07] MEDS: docusate sod 100mg capsule PO SCH ×2 (08:00→20:05)
[2018-09-07] MEDS: predniSONE 20 mg tablet PO SCH (08:25)
[2018-09-07] MEDS: gabapentin 300mg capsule PO SCH ×3 (08:25→20:05)
[2018-09-07] MEDS: aspirin 81mg tablet.DR PO SCH (08:25)
[2018-09-07] MEDS: pantoprazole 40mg Tablet.DR PO SCH (08:25)
[2018-09-07] MEDS: lactobacillus rhamnosus 10,000 MMU CELLS/CAPSULE PO SCH ×2 (08:25→20:05)
[2018-09-07] MEDS: FLUoxetine 20mg capsule PO SCH ×2 (08:26→20:05)
[2018-09-07] MEDS: lisinopril 20mg tablet PO SCH (08:27)
[2018-09-07] MEDS: enoxaparin 40mg/0.4ml syringe SUBCUT SCH (08:27)
--- NOTE | 2018-09-07 12:14 | NUR ---
Reassessment: Pt has been extubated and moved to the floors. TF has been d/c'ed and pt now on a CHO controlled diet with documented 75-100% PO intake meeting nutrient needs. Pt with no hx DM, d/w RN changing diet to heart healthy per MD approval. [facility] 09/06. Will continue to follow. Rec: 1. Diet change to heart healthy 2. Wt per rx Addendum: 09/07/18 at [address] Amended: Links added.
[2018-09-07] MEDS: levoFLOXACIN 500mg tablet PO SCH (13:21)
--- NOTE | 2018-09-07 17:07 | NUR ---
called edge inker heels, per edge inker heels, potassium replacement not needed
[2018-09-07] MEDS: potassium Cl 20 mEq SR tablet PO SCH (17:47)
--- NOTE | 2018-09-07 18:37 | NUR ---
Problems reprioritized. Patient report given, questions answered & plan of care reviewed with Pura GONZALEZ.
--- NOTE | 2018-09-07 18:56 | NUR ---
Patient in room ORTHO 4013. I have received report from LEIGH GONZALEZ and had the opportunity to ask questions and assume patient care.
[2018-09-07] MEDS: QUEtiapine 25mg tablet PO SCH (20:05)
[2018-09-07] MEDS: pravastatin 40mg tablet PO SCH (20:05)
[2018-09-07] MEDS ORDERED: LORazepam 1 MG tablet PO ONE (22:35)
--- NOTE | 2018-09-07 22:35 | NUR ---
PATIENT FEELING VERY ANXIOUS AT THIS TIME, IS PAINFUL AND GAVE NORCO A LITTLE OVER AN HOUR AGO, BUT STATES "I'M FEELING LIKE I AM GOING TO COME OUT OF MY SKIN, I JUST CAN'T CALM DOWN". CALLED [facility] [employer] AND RC'D ORDER FOR 1MG ATIVAN X1 TONIGHT AND WANTS TO HAVE DAY SHIFT SPEAK TO INDUSTRIAL SERVICES WORKER TOMORROW ABOUT CONTINUING PATIENT'S BACLOFEN AND A CONTINUING ORDER FOR ATIVAN
[2018-09-08] MEDS: ipratropium/albuterol 3ml nebule NEB SCH ×6 (03:00→22:56)
--- NOTE | 2018-09-08 04:40 | NUR ---
1151 SPOKE TO [facility] REGARDING ORDER TO DC RIJ, DOCUMENTATION OVER LAST 2 DAYS STATED KEEP RIJ IN PLACE. PATIENT A HARD STICK AND WILL REQUIRE ULTRA SOUND FOR PIV PLACEMENT. PATIENT POSSIBLE DISCHG ON 09/08. WILL REVIEW ORDER WITH POCKET FLAP CREASING MACHINE OPERATOR ON EARLY SHIFT PER [facility]
[2018-09-08 06:25] VITALS: BP 127/87
--- NOTE | 2018-09-08 06:43 | NUR ---
REPORT GIVEN TO MICAH GONZALEZ
[2018-09-08] MEDS: HYDROcodone/acetaminophen 10/325mg tab PO PRN ×3 (08:37→21:46)
[2018-09-08] MEDS: FLUoxetine 20mg capsule PO SCH ×2 (08:39→20:23)
[2018-09-08] MEDS: predniSONE 20 mg tablet PO SCH (08:39)
[2018-09-08] MEDS: gabapentin 300mg capsule PO SCH ×3 (08:39→20:23)
[2018-09-08] MEDS: aspirin 81mg tablet.DR PO SCH (08:39)
[2018-09-08] MEDS: pantoprazole 40mg Tablet.DR PO SCH (08:39)
[2018-09-08] MEDS: potassium Cl 20 mEq SR tablet PO SCH (08:39)
[2018-09-08] MEDS: docusate sod 100mg capsule PO SCH ×2 (08:39→20:23)
[2018-09-08] MEDS: lactobacillus rhamnosus 10,000 MMU CELLS/CAPSULE PO SCH ×2 (08:39→20:23)
[2018-09-08] MEDS: lisinopril 20mg tablet PO SCH (08:40)
[2018-09-08] MEDS: enoxaparin 40mg/0.4ml syringe SUBCUT SCH (08:40)
[2018-09-08 10:00] VITALS: BP 142/91
[2018-09-08 10:24] LABS: BASOPHILS % (AUTO) 0.5 % (0-1); EOSINOPHILS # (AUTO) 0.2 X10'3 (0-0.9); EOSINOPHILS % (AUTO) 1.7 % (0-6); HEMOGLOBIN 12.2 g/dl (14.0-17.9); LYMPHOCYTES % (AUTO) 27.8 % (21-51); MEAN CORPUSCULAR HEMOGLOBIN 28.2 PG (27.0-31.0); MEAN PLATELET VOLUME 6.4 FL (7.4-10.4); MONOCYTES # (AUTO) 0.9 X10'3 (0-0.9); MONOCYTES % (AUTO) 8.3 % (2-12); NEUTROPHILS # (AUTO) 6.6 X10'3 (1.8-7.7); NEUTROPHILS % (AUTO) 61.7 % (42-75); PLATELET COUNT 295 X10'3 (140-440); RED BLOOD COUNT 4.33 X10'6 (4.70-6.10); RED CELL DISTRIBUTION WIDTH 14.7 % (11.5-14.5); WHITE BLOOD COUNT 10.7 X10'3 (4.5-11.0)
[2018-09-08] MEDS ORDERED: baclofen 10mg tablet PO PRN (11:15)
[2018-09-08 11:20] LABS: ALANINE AMINOTRANSFERASE 19 U/L (12-78); ALBUMIN 3.2 G/DL (3.4-5.0); ALBUMIN/GLOBULIN RATIO 1.1 (1.1-1.5); ALKALINE PHOSPHATASE 55 IU/L (46-116); ANION GAP 5 (8-16); ASPARTATE AMINO TRANSFERASE 13 U/L (10-37); BILIRUBIN,TOTAL 0.2 MG/DL (0.1-1.0); BLOOD UREA NITROGEN 17 MG/DL (7-18); BUN/CREATININE RATIO 25.8 (5.4-32.0); CHLORIDE 105 MMOL/L (99-107); CREATININE 0.66 MG/DL (0.60-1.10); GLUCOSE 98 MG/DL (70-104); MAGNESIUM 1.8 MG/DL (1.5-2.4); PHOSPHORUS 4.2 MG/DL (2.3-4.5); POTASSIUM 3.3 MMOL/L (3.5-5.1); SODIUM 141 MMOL/L (135-145); TOTAL CARBON DIOXIDE 30.8 MMOL/L (24-32); eGFR > 90 ML/MIN
[2018-09-08] MEDS: levoFLOXACIN 500mg tablet PO SCH (13:23)
[2018-09-08 18:00] VITALS: BP 141/93
[2018-09-08] MEDS: pravastatin 40mg tablet PO SCH (20:23)
[2018-09-08] MEDS: QUEtiapine 25mg tablet PO SCH (20:24)
[2018-09-08 22:00] VITALS: BP 131/91
--- NOTE | 2018-09-08 22:03 | NUR ---
Pt has had all of his needs met , has become angry because he has been given two apple juice boxes and a turkey sandwich which he thanked RN profusely for. Now pt is angry and hostile because RN put a limitation on him, offering him fresh ice water. He wants his wallet out of the safe, which is also unable to be done. He stormed back to his bed and threw himself in it. will continue to monitor for need to call security. Addendum: 09/08/18 at 2210 by Mila Krishna RN Amended: Links added.
[2018-09-09] MEDS: ipratropium/albuterol 3ml nebule NEB SCH ×3 (03:00→10:23)
[2018-09-09] MEDS: HYDROcodone/acetaminophen 10/325mg tab PO PRN ×2 (04:53→12:39)
[2018-09-09 06:00] VITALS: BP 136/98
--- NOTE | 2018-09-09 06:25 | NUR ---
Report given to felisha Digeo.
[2018-09-09] MEDS: lactobacillus rhamnosus 10,000 MMU CELLS/CAPSULE PO SCH (08:55)
[2018-09-09] MEDS: docusate sod 100mg capsule PO SCH (08:55)
[2018-09-09] MEDS: aspirin 81mg tablet.DR PO SCH (08:56)
[2018-09-09] MEDS: potassium Cl 20 mEq SR tablet PO SCH (08:58)
[2018-09-09] MEDS: FLUoxetine 20mg capsule PO SCH (08:59)
[2018-09-09] MEDS: predniSONE 20 mg tablet PO SCH (08:59)
[2018-09-09] MEDS: gabapentin 300mg capsule PO SCH ×2 (08:59→12:39)
[2018-09-09] MEDS: lisinopril 20mg tablet PO SCH (09:01)
[2018-09-09] MEDS: enoxaparin 40mg/0.4ml syringe SUBCUT SCH (09:02)
[2018-09-09] MEDS: pantoprazole 40mg Tablet.DR PO SCH (09:05)
[2018-09-09 10:00] VITALS: BP 134/99
[2018-09-09] MEDS: levoFLOXACIN 500mg tablet PO SCH (12:39)
[2018-09-09 13:56] LABS: BASOPHILS % (AUTO) 0.3 % (0-1); EOSINOPHILS % (AUTO) 0.1 % (0-6); HEMATOCRIT 41.7 % (42.0-52.0); HEMOGLOBIN 13.8 g/dl (14.0-17.9); LYMPHOCYTES # (AUTO) 1.1 X10'3 (1.1-4.8); LYMPHOCYTES % (AUTO) 7.8 % (21-51); MEAN CORPUSCULAR HEMOGLOBIN 27.6 PG (27.0-31.0); MEAN CORPUSCULAR HGB CONC 33.1 g/dL (33.0-36.5); MEAN CORPUSCULAR VOLUME 83.3 FL (78-98); MEAN PLATELET VOLUME 6.5 FL (7.4-10.4); MONOCYTES # (AUTO) 0.4 X10'3 (0-0.9); MONOCYTES % (AUTO) 2.8 % (2-12); NEUTROPHILS # (AUTO) 13.2 X10'3 (1.8-7.7); PLATELET COUNT 367 X10'3 (140-440); RED BLOOD COUNT 5.01 X10'6 (4.70-6.10); RED CELL DISTRIBUTION WIDTH 14.5 % (11.5-14.5); WHITE BLOOD COUNT 14.8 X10'3 (4.5-11.0)
[2018-09-09 14:18] LABS: ALANINE AMINOTRANSFERASE 23 U/L (12-78); ALBUMIN/GLOBULIN RATIO 1.3 (1.1-1.5); ALKALINE PHOSPHATASE 65 IU/L (46-116); ANION GAP 7 (8-16); ASPARTATE AMINO TRANSFERASE 12 U/L (10-37); BILIRUBIN,TOTAL 0.2 MG/DL (0.1-1.0); BLOOD UREA NITROGEN 16 MG/DL (7-18); BUN/CREATININE RATIO 18.8 (5.4-32.0); CALCIUM 9.4 MG/DL (8.5-10.1); CHLORIDE 101 MMOL/L (99-107); CREATININE 0.85 MG/DL (0.60-1.10); GLUCOSE 103 MG/DL (70-104); MAGNESIUM 2.1 MG/DL (1.5-2.4); PHOSPHORUS 3.6 MG/DL (2.3-4.5); POTASSIUM 4.2 MMOL/L (3.5-5.1); PREALBUMIN 38.7 MG/DL (19-36); SODIUM 139 MMOL/L (135-145); TOTAL CARBON DIOXIDE 30.8 MMOL/L (24-32); TOTAL PROTEIN 7.2 G/DL (6.4-8.2); eGFR > 90 ML/MIN
--- NOTE | 2018-09-09 14:30 | NUR ---
Received telephone call from Dr. Guthrie who informed he would be discharging pt today. Per Dr. Guthrie, received instruction to call in RX to [facility] for Prednisone 30mg starting tomorrow, 20mg Sunday, 10mg on and 5 mg on Sunday and stop medication. RX called to [facility] on [address] for bedside delivery. Right internal jugular discontinued per dc orders. Old dressing removed from right internal jugular saline lock. Sutures x2 cut and removed. Catheter removed from right jugular with ease. Pt tolerated well. Held pressure on right jugular using 2x2 gauze x 4 minutes. Covered with clean 2x2 and Opsite dressing. Pt tolerated well. Pt received bedside medication order from [facility]. Pt requested Home Health order for f/u until he can get an SS worker that is currently setting pt up for. Pt discharged via w/c to [facility] for transport home at 1545.
== END 2018-09-09 16:00 | disposition home or self-care (01) | DRG 133 ==
LOC: ER 01:10 → ICU 2S 03:51 → CMPBEDREQ 04:03 → ORTHO 4S 09-07 03:15
PROVIDERS: ADMIT Internal Medicine Critical Care Medicine; ATTEND Internal Medicine Critical Care Medicine
PROC: 5A1945Z Respiratory Ventilation, 24-96 Consecutive Hours (ICD-10-PCS; principal; 2018-09-04)
PROC: 0BH17EZ Insertion of Endotracheal Airway into Trachea, Via Natural or Artificial Opening (ICD-10-PCS; 2018-09-04)
PROC: 0D9670Z Drainage of Stomach with Drainage Device, Via Natural or Artificial Opening (ICD-10-PCS; 2018-09-04)
PROC: 02HV33Z Insertion of Infusion Device into Superior Vena Cava, Percutaneous Approach (ICD-10-PCS; 2018-09-04)
PROC: B548ZZA Ultrasonography of Superior Vena Cava, Guidance (ICD-10-PCS; 2018-09-04)
DX: J96.21 Acute and chronic respiratory failure with hypoxia (principal); E87.2 Acidosis; Z99.81 Dependence on supplemental oxygen; J44.1 Chronic obstructive pulmonary disease with (acute) exacerbation; I10 Essential (primary) hypertension; M16.11 Unilateral primary osteoarthritis, right hip; F32.9 Major depressive disorder, single episode, unspecified; G89.29 Other chronic pain; M54.9 Dorsalgia, unspecified; Z79.899 Other long term (current) drug therapy; Z79.82 Long term (current) use of aspirin
CPT/HCPCS: 36415; 36556; 36600; 71045; 80053; 81001; 82803; 82948; 83605; 83735; 83880; 84100; 84134; 84145; 84478; 84484; 85018; 85025; 85379; 85610; 85730; 87040; 87070; 87077; 93005; 94002; 94003; 94640; 94760; 96374; 97110; 97116; 97161; 97530; 99291; G0378; J1100; J1650; J1720; J1956; J2250; J2704; J3490; J7030; J7512

== ENCOUNTER 2018-10-29 19:54 | Emergency (ER) | payer MEDICAID ==
[~2018-10-29] VITALS: Ht 162.6 cm; Wt 75.0 kg
[~2018-10-29 19:54] MED LIST changes: +ALBU2.5V10 NEB; -ALBU8HFA PO; -BACL20TA2 PO; +HYDR-3686 PO; -OMEP-50 PO; -PROM25TA14 PO; -QUET-1 PO
--- NOTE | 2018-10-29 20:16 | NUR ---
DR LAW AT BEDSIDE TO EVALUATE PT
[2018-10-29] MEDS ORDERED: methylPREDNISolone sod succ 125mg/2ml vial IV ONE (20:20)
[2018-10-29] MEDS ORDERED: ipratropium/albuterol 3ml nebule NEB ONE (20:20)
[2018-10-29] MEDS ORDERED: normal saline 1000ML IV soln IVB ONE (20:20)
[2018-10-29] MEDS ORDERED: albuterol 2.5 MG/3 ML nebule NEB ONE (20:20)
--- NOTE | 2018-10-29 20:35 | NUR ---
RT AT BEDSIDE FOR BREATHING TX, PT IS RESTING QUIETLY, NO RESP DISTRESS, TALKING 7-8 WORD SENTENCES, SKIN P/W/D
[2018-10-29 20:39] LABS: BASOPHILS # (AUTO) 0.1 X10'3 (0-0.2); EOSINOPHILS # (AUTO) 0.4 X10'3 (0-0.9); EOSINOPHILS % (AUTO) 3.7 % (0-6); HEMATOCRIT 36.3 % (42.0-52.0); LYMPHOCYTES # (AUTO) 2.9 X10'3 (1.1-4.8); MEAN CORPUSCULAR HEMOGLOBIN 28.1 PG (27.0-31.0); MEAN CORPUSCULAR HGB CONC 33.1 g/dL (33.0-36.5); MEAN CORPUSCULAR VOLUME 84.7 FL (78-98); MEAN PLATELET VOLUME 6.2 FL (7.4-10.4); MONOCYTES # (AUTO) 1.2 X10'3 (0-0.9); NEUTROPHILS # (AUTO) 6.1 X10'3 (1.8-7.7); NEUTROPHILS % (AUTO) 57.3 % (42-75); PLATELET COUNT 284 X10'3 (140-440); RED BLOOD COUNT 4.29 X10'6 (4.70-6.10); RED CELL DISTRIBUTION WIDTH 15.1 % (11.5-14.5); WHITE BLOOD COUNT 10.6 X10'3 (4.5-11.0)
[2018-10-29 20:56] LABS: ALANINE AMINOTRANSFERASE 25 U/L (12-78); ALBUMIN 3.8 G/DL (3.4-5.0); ALBUMIN/GLOBULIN RATIO 1.5 (1.1-1.5); ALKALINE PHOSPHATASE 48 IU/L (46-116); ANION GAP 7 (8-16); ASPARTATE AMINO TRANSFERASE 14 U/L (10-37); BILIRUBIN,TOTAL 0.2 MG/DL (0.1-1.0); BLOOD UREA NITROGEN 23 MG/DL (7-18); BUN/CREATININE RATIO 19.3 (5.4-32.0); CALCIUM 8.8 MG/DL (8.5-10.1); CHLORIDE 104 MMOL/L (99-107); CREATININE 1.19 MG/DL (0.60-1.10); GLUCOSE 92 MG/DL (70-104); POTASSIUM 3.7 MMOL/L (3.5-5.1); SODIUM 139 MMOL/L (135-145); TOTAL PROTEIN 6.4 G/DL (6.4-8.2); eGFR 63 ML/MIN
[2018-10-29] MEDS ORDERED: PRED20TA PO (21:13)
[2018-10-29] MEDS ORDERED: AZIT250T PO (21:13)
[2018-10-29] MEDS ORDERED: azithromycin 250mg tablet PO ONE (21:15)
[2018-10-29 21:23] VITALS: BP 100/62
== END 2018-10-29 21:32 | disposition home or self-care (01) ==
LOC: ER 19:55
DX: J44.1 Chronic obstructive pulmonary disease with (acute) exacerbation (principal); Z79.82 Long term (current) use of aspirin; Z79.899 Other long term (current) drug therapy
CPT/HCPCS: 36415; 71045; 80053; 83880; 85025; 93005; 94640; 94760; 96374; 99284; J2930; J7030

== ENCOUNTER 2019-01-15 00:56 | Inpatient (IN) | payer MEDICAID ==
[~2019-01-15] VITALS: Ht 162.6 cm; Wt 72.0 kg
[~2019-01-15 00:56] MED LIST changes: +AZIT250T PO
[2019-01-15] MEDS ORDERED: methylPREDNISolone sod succ 125mg/2ml vial IV ONE (01:15)
[2019-01-15] MEDS ORDERED: ipratropium/albuterol 3ml nebule NEB ONE (01:15)
--- NOTE | 2019-01-15 01:29 | NUR ---
RESP HERE FOR BI PAP SET UP DR WONG TO SEE PT PT PLACED ON 2 LITERS OF O2 PER NC TO INCREASE SATS TO 97 % AND WORK OF BREATHING . PT SATES HE USES 2 LITERS AT HOME AT NIGHT. PT ALSO STATES THAT HE HAS BEEN CLEANING CARPETS THE LAST FEW DAYS AND HE STATRED HAVING DIFFICULTY BREATHING THAT MADE HIM ANXIOUS SO HE CAME TO THE ER.
[2019-01-15 01:35] LABS: BASOPHILS # (AUTO) 0.1 X10'3 (0-0.2); EOSINOPHILS # (AUTO) 0.8 X10'3 (0-0.9); EOSINOPHILS % (AUTO) 9.2 % (0-6); HEMATOCRIT 41.6 % (42.0-52.0); LYMPHOCYTES # (AUTO) 3.4 X10'3 (1.1-4.8); LYMPHOCYTES % (AUTO) 37.5 % (21-51); MEAN CORPUSCULAR HEMOGLOBIN 28.3 PG (27.0-31.0); MEAN CORPUSCULAR HGB CONC 33.7 g/dL (33.0-36.5); MEAN CORPUSCULAR VOLUME 83.9 FL (78-98); MEAN PLATELET VOLUME 6.4 FL (7.4-10.4); MONOCYTES # (AUTO) 0.8 X10'3 (0-0.9); MONOCYTES % (AUTO) 8.9 % (2-12); NEUTROPHILS % (AUTO) 43.4 % (42-75); PLATELET COUNT 314 X10'3 (140-440); RED BLOOD COUNT 4.96 X10'6 (4.70-6.10); WHITE BLOOD COUNT 9.1 X10'3 (4.5-11.0)
--- NOTE | 2019-01-15 01:45 | NUR ---
PT FRIEND "ARACELY " LEFT HIS NUMBER AND ASKED TO BE NOTIFIED IF PT NEEDS ANYTHING OR IS DISCHRAGED HOME
[2019-01-15 01:47] LABS: ALANINE AMINOTRANSFERASE 31 U/L (12-78); ALBUMIN/GLOBULIN RATIO 1.3 (1.1-1.5); ALKALINE PHOSPHATASE 63 IU/L (46-116); ANION GAP 8 (8-16); ASPARTATE AMINO TRANSFERASE 21 U/L (10-37); BILIRUBIN,TOTAL 0.3 MG/DL (0.1-1.0); BLOOD UREA NITROGEN 10 MG/DL (7-18); BUN/CREATININE RATIO 10.6 (5.4-32.0); CHLORIDE 104 MMOL/L (99-107); CREATININE 0.94 MG/DL (0.60-1.10); GLUCOSE 94 MG/DL (70-104); POTASSIUM 3.9 MMOL/L (3.5-5.1); SODIUM 140 MMOL/L (135-145); TOTAL CARBON DIOXIDE 27.7 MMOL/L (24-32); TOTAL PROTEIN 7.2 G/DL (6.4-8.2); eGFR 83 ML/MIN
[2019-01-15 02:01] LABS: ABG BASE EXCESS 0.5 mmol/L (-2.0-3.0); ABG OXYGEN SATURATION 98.7 % (95-98); ABG PH (T) 7.596 (7.350-7.450); ABG PO2 (T) 113.7 mmHg (83-108); ALLEN'S TEST Positive; FCOHb 0.7 % (0.5-1.5); FMetHb 0.1 % (0.3-1.12); FO2Hb 97.9 % (94-100); MINUTE VOLUME 10 L/min; RESPIRATORY RATE 16 b/min; RESPIRATORY RATE (OBSERVED) 20 b/min; TIDAL VOLUME 540 mL
[2019-01-15] MEDS ORDERED: albuterol 2.5 MG/3 ML nebule CONTNEB PRN (02:45)
--- NOTE | 2019-01-15 02:45 | NUR ---
resp back for abg draw , last attmept unsuccessful
[2019-01-15 02:55] LABS: ABG BASE EXCESS 2.1 mmol/L (-2.0-3.0); ABG HCO3 21.4 mmol/L (22.0-26.0); ABG OXYGEN SATURATION 98.2 % (95-98); ABG PCO2 (T) 20.8 mmHg (35.0-45.0); ABG PH (T) 7.627 (7.350-7.450); ABG PO2 (T) 99.4 mmHg (83-108); ALLEN'S TEST Positive; FO2Hb 97.2 % (94-100); MINUTE VOLUME 14 L/min; PATIENT TEMPERATURE 36.5; RESPIRATORY RATE 16 b/min; RESPIRATORY RATE (OBSERVED) 29 b/min; TOTAL HEMOGLOBIN 13.8 G/dl (14.0-17.9)
--- NOTE | 2019-01-15 03:11 | NUR ---
pt receiving hour long med neb tx o2 sats at 98 % on 10 liters of o2 durning med neb tx. RR 18 bp 122/84 hr 68 no complaints of discomfort . no s/s of scute distress at this moment.
[2019-01-15] MEDS ORDERED: magnesium 4gm in 100ml NS 100 ML IV PRN (03:40)
[2019-01-15] MEDS ORDERED: potassium CL 10mEq/100ml bag 100 ML IV PRN ×2 (03:40)
[2019-01-15] MEDS ORDERED: potassium Cl 20 mEq SR tablet PO PRN ×2 (03:40)
[2019-01-15] MEDS ORDERED: magnesium 2GM in 50ml NS 50 ML IV PRN (03:40)
[2019-01-15] MEDS ORDERED: docusate sod 100mg capsule PO PRN (03:40)
[2019-01-15] MEDS ORDERED: ondansetron/PF 4mg/2ml inj IV PRN (03:40)
--- NOTE | 2019-01-15 04:38 | NUR ---
Patient in room ED 8. I have received report from HUMAN RESOURCES LEADER and had the opportunity to ask questions and assume patient care.
[2019-01-15 05:15] VITALS: BP 127/84
[2019-01-15 06:00] VITALS: BP 127/88
--- NOTE | 2019-01-15 06:36 | NUR ---
Problems reprioritized. Patient report given, questions answered & plan of care reviewed with Brooklyn GONZALEZ.
[2019-01-15] MEDS: ipratropium/albuterol 3ml nebule NEB SCH ×5 (07:30→23:00)
[2019-01-15] MEDS: K and/or MAG REPLACEMENT MC SCH (08:00)
[2019-01-15] MEDS ORDERED: ipratropium 0.5 MG/2.5ML nebule IH PRN (08:00)
[2019-01-15] MEDS ORDERED: ipratropium 0.5 MG/2.5ML nebule IH SCH (08:00)
[2019-01-15] MEDS: methylPREDNISolone sod succ/PF 40mg inj. IV SCH ×2 (08:58→16:26)
[2019-01-15] MEDS: enoxaparin 40mg/0.4ml syringe SQ SCH (08:59)
[2019-01-15] MEDS: DOXYCYCLINE 100MG CAPSULE PO SCH ×2 (09:00→20:55)
[2019-01-15] MEDS: gabapentin 300mg capsule PO SCH ×3 (09:01→20:55)
[2019-01-15] MEDS: lisinopril 20mg tablet PO SCH (09:01)
[2019-01-15] MEDS: aspirin 81mg tablet.DR PO SCH (09:01)
[2019-01-15] MEDS: FLUoxetine 20mg capsule PO SCH ×2 (09:55→20:55)
[2019-01-15] MEDS: acetaminophen 325mg tablet PO PRN ×2 (09:56→16:27)
[2019-01-15] MEDS ORDERED: pneumococcal 23-VAL P-sac vacc 25 mcg/0.5ml vial IMVAC ONE (10:00)
[2019-01-15] MEDS ORDERED: FLU VACC QS2019-20 36MOS UP/PF 60 MCG/0.5 ML SYRINGE IMVAC ONE (10:00)
--- NOTE | 2019-01-15 10:43 | NUR ---
Flu vaccine is unavailable at this time.
[2019-01-15 11:00] VITALS: BP 135/82
[2019-01-15] MEDS ORDERED: ipratropium/albuterol 3ml nebule NEB PRN (14:25)
[2019-01-15 15:00] VITALS: BP 114/76
--- NOTE | 2019-01-15 16:35 | NUR ---
Request for pain medication needs PAGER ID: [phone] MESSAGE: Pt. Mihir Degroot Rm 2017A: needs pain medication for his chronic back ache. Tylenol is insufficient. Tx. Brooklyn GONZALEZ
--- NOTE | 2019-01-15 18:35 | NUR ---
Patient in room PCU 9623i. I have received report from LISA Barahona and had the opportunity to ask questions and assume patient care. Patient awake for bedside report, on 2L NC, and saline locked with 20 G in right FA. Patient complaining of pain 10/10. Per day RN hospitalist has been paged. Will follow up with night time hospitalist for pain control.
[2019-01-15 19:00] VITALS: BP 135/45
--- NOTE | 2019-01-15 19:32 | NUR ---
PAGER ID: [phone] MESSAGE: [phone] LISA Lewis Admit Dx COPD Exacerbation. Patient would like [place] 10 q4h. States he takes at home to manage chronic pain. Thank you!
[2019-01-15] MEDS: HYDROcodone/acetaminophen 10/325mg tab PO PRN (20:39)
[2019-01-15] MEDS: lactobacillus rhamnosus 10,000 MMU CELLS/CAPSULE PO SCH (20:55)
[2019-01-15] MEDS ORDERED: QUEtiapine 25mg tablet PO SCH (21:00)
[2019-01-15] MEDS: pravastatin 40mg tablet PO SCH (21:54)
[2019-01-15 23:00] VITALS: BP 143/76
[2019-01-16] VITALS (7 sets, daily range): BP systolic 104–131; BP diastolic 64–77
[2019-01-16] MEDS: methylPREDNISolone sod succ/PF 40mg inj. IV SCH ×3 (00:26→19:53)
[2019-01-16] MEDS: HYDROcodone/acetaminophen 10/325mg tab PO PRN ×4 (05:15→19:54)
[2019-01-16 05:55] LABS: BASOPHILS % (AUTO) 0.1 % (0-1); EOSINOPHILS % (AUTO) 0 % (0-6); HEMATOCRIT 39.7 % (42.0-52.0); HEMOGLOBIN 13.3 g/dl (14.0-17.9); LYMPHOCYTES # (AUTO) 0.9 X10'3 (1.1-4.8); LYMPHOCYTES % (AUTO) 7.6 % (21-51); MEAN CORPUSCULAR HEMOGLOBIN 28.7 PG (27.0-31.0); MEAN CORPUSCULAR HGB CONC 33.5 g/dL (33.0-36.5); MEAN CORPUSCULAR VOLUME 85.6 FL (78-98); MEAN PLATELET VOLUME 6.7 FL (7.4-10.4); MONOCYTES # (AUTO) 0.4 X10'3 (0-0.9); MONOCYTES % (AUTO) 3.3 % (2-12); NEUTROPHILS # (AUTO) 10.4 X10'3 (1.8-7.7); PLATELET COUNT 329 X10'3 (140-440); RED BLOOD COUNT 4.64 X10'6 (4.70-6.10); RED CELL DISTRIBUTION WIDTH 15.2 % (11.5-14.5); WHITE BLOOD COUNT 11.6 X10'3 (4.5-11.0)
[2019-01-16 06:16] LABS: ALANINE AMINOTRANSFERASE 25 U/L (12-78); ALBUMIN/GLOBULIN RATIO 1.2 (1.1-1.5); ALKALINE PHOSPHATASE 58 IU/L (46-116); ANION GAP 13 (8-16); ASPARTATE AMINO TRANSFERASE 9 U/L (10-37); BILIRUBIN,TOTAL 0.3 MG/DL (0.1-1.0); BLOOD UREA NITROGEN 23 MG/DL (7-18); BUN/CREATININE RATIO 29.5 (5.4-32.0); CALCIUM 9.8 MG/DL (8.5-10.1); CHLORIDE 105 MMOL/L (99-107); CHOL/HDL RATIO 3.6 (0.00-4.99); CHOLESTEROL 164 MG/DL (0-200); CREATININE 0.78 MG/DL (0.60-1.10); GLUCOSE 137 MG/DL (70-104); HDL CHOLESTEROL 45 MG/DL (35-60); LDL CHOLESTEROL 103 MG/DL (50-100); POTASSIUM 3.9 MMOL/L (3.5-5.1); SODIUM 142 MMOL/L (135-145); TOTAL PROTEIN 7.3 G/DL (6.4-8.2); TRIGLYCERIDES 99 MG/DL (20-135); eGFR > 90 ML/MIN
--- NOTE | 2019-01-16 06:37 | NUR ---
[place] documentation: I have reviewed and agree with all interventions, assessments performed and documented by LISA Freitas.
[2019-01-16] MEDS: K and/or MAG REPLACEMENT MC SCH (06:50)
[2019-01-16] MEDS: ipratropium/albuterol 3ml nebule NEB SCH ×5 (07:29→23:00)
[2019-01-16] MEDS: DOXYCYCLINE 100MG CAPSULE PO SCH ×2 (07:54→19:53)
[2019-01-16] MEDS: lactobacillus rhamnosus 10,000 MMU CELLS/CAPSULE PO SCH ×2 (07:55→19:53)
[2019-01-16] MEDS: FLUoxetine 20mg capsule PO SCH ×2 (07:55→19:53)
[2019-01-16] MEDS: gabapentin 300mg capsule PO SCH ×3 (08:01→20:02)
[2019-01-16] MEDS: aspirin 81mg tablet.DR PO SCH (08:01)
[2019-01-16] MEDS: lisinopril 20mg tablet PO SCH (08:01)
[2019-01-16] MEDS: enoxaparin 40mg/0.4ml syringe SQ SCH (08:02)
[2019-01-16] MEDS ORDERED: LORazepam 2 mg/ml vial IV PRN (09:40)
[2019-01-16] MEDS ORDERED: pantoprazole 40mg Tablet.DR PO ONE (10:10)
[2019-01-16] MEDS: hydrOXYzine 25 MG tablet PO PRN ×2 (10:15→16:29)
[2019-01-16] MEDS ORDERED: QUEtiapine 25mg tablet PO PRN (10:18)
[2019-01-16] MEDS ORDERED: IBUP-1986 PO (10:25)
[2019-01-16] MEDS ORDERED: FLUT1DIS4 INH (10:25)
[2019-01-16] MEDS: albuterol 2.5 MG/3 ML nebule NEB SCH ×2 (14:26→19:44)
--- NOTE | 2019-01-16 18:10 | NUR ---
Patient in room PCU 3011T. I have received report from Paula GONZALEZ, and had the opportunity to ask questions and assume patient care.
[2019-01-16] MEDS: budesonide 0.5mg/2ml UD nebule IH SCH (19:36)
[2019-01-16] MEDS: LORazepam 0.5 MG tablet PO PRN (20:01)
[2019-01-16] MEDS: pravastatin 40mg tablet PO SCH (20:02)
[2019-01-17] MEDS: albuterol 2.5 MG/3 ML nebule NEB SCH ×2 (02:00→20:00)
[2019-01-17 03:00] VITALS: BP 105/52
[2019-01-17 05:23] LABS: BASOPHILS % (AUTO) 0.1 % (0-1); EOSINOPHILS % (AUTO) 0 % (0-6); HEMATOCRIT 38.6 % (42.0-52.0); HEMOGLOBIN 12.9 g/dl (14.0-17.9); LYMPHOCYTES # (AUTO) 1.1 X10'3 (1.1-4.8); LYMPHOCYTES % (AUTO) 8.4 % (21-51); MEAN CORPUSCULAR HEMOGLOBIN 28.4 PG (27.0-31.0); MEAN CORPUSCULAR HGB CONC 33.4 g/dL (33.0-36.5); MEAN PLATELET VOLUME 6.6 FL (7.4-10.4); MONOCYTES # (AUTO) 0.5 X10'3 (0-0.9); MONOCYTES % (AUTO) 3.8 % (2-12); NEUTROPHILS # (AUTO) 11.2 X10'3 (1.8-7.7); NEUTROPHILS % (AUTO) 87.7 % (42-75); PLATELET COUNT 316 X10'3 (140-440); RED BLOOD COUNT 4.54 X10'6 (4.70-6.10); RED CELL DISTRIBUTION WIDTH 15.5 % (11.5-14.5); WHITE BLOOD COUNT 12.8 X10'3 (4.5-11.0)
[2019-01-17] MEDS: HYDROcodone/acetaminophen 10/325mg tab PO PRN ×4 (05:27→20:56)
[2019-01-17 05:33] LABS: ALANINE AMINOTRANSFERASE 22 U/L (12-78); ALBUMIN 3.7 G/DL (3.4-5.0); ALBUMIN/GLOBULIN RATIO 1.2 (1.1-1.5); ALKALINE PHOSPHATASE 51 IU/L (46-116); ANION GAP 7 (8-16); ASPARTATE AMINO TRANSFERASE 10 U/L (10-37); BILIRUBIN,TOTAL 0.2 MG/DL (0.1-1.0); BLOOD UREA NITROGEN 20 MG/DL (7-18); CALCIUM 8.7 MG/DL (8.5-10.1); CHLORIDE 106 MMOL/L (99-107); CREATININE 0.74 MG/DL (0.60-1.10); GLUCOSE 133 MG/DL (70-104); POTASSIUM 4.1 MMOL/L (3.5-5.1); SODIUM 142 MMOL/L (135-145); TOTAL CARBON DIOXIDE 28.8 MMOL/L (24-32); TOTAL PROTEIN 6.7 G/DL (6.4-8.2); eGFR > 90 ML/MIN
[2019-01-17 06:00] VITALS: BP 135/87
--- NOTE | 2019-01-17 06:10 | NUR ---
Patient in room PCU 3017. I have received report from LISA Santamaria and had the opportunity to ask questions and assume patient care.
--- NOTE | 2019-01-17 06:52 | NUR ---
Problems reprioritized. Patient report given, questions answered & plan of care reviewed with Magda GONZALEZ.
[2019-01-17] MEDS: ipratropium/albuterol 3ml nebule NEB SCH ×5 (06:56→23:00)
[2019-01-17] MEDS: K and/or MAG REPLACEMENT MC SCH (08:00)
[2019-01-17] MEDS: lactobacillus rhamnosus 10,000 MMU CELLS/CAPSULE PO SCH ×2 (08:50→20:56)
[2019-01-17] MEDS: DOXYCYCLINE 100MG CAPSULE PO SCH (08:50)
[2019-01-17] MEDS: FLUoxetine 20mg capsule PO SCH ×2 (08:50→20:56)
[2019-01-17] MEDS: methylPREDNISolone sod succ/PF 40mg inj. IV SCH (08:50)
[2019-01-17] MEDS: enoxaparin 40mg/0.4ml syringe SQ SCH (08:50)
[2019-01-17] MEDS: gabapentin 300mg capsule PO SCH ×3 (08:50→20:56)
[2019-01-17] MEDS: aspirin 81mg tablet.DR PO SCH (08:50)
[2019-01-17] MEDS: lisinopril 20mg tablet PO SCH (08:53)
[2019-01-17] MEDS: levoFLOXACIN-Levaquin 500mg/D5 100 ML IV SCH (10:56)
[2019-01-17 11:00] VITALS: BP 123/95
[2019-01-17] MEDS: LORazepam 0.5 MG tablet PO PRN ×2 (17:13→20:56)
[2019-01-17 17:24] VITALS: BP 147/87
[2019-01-17 18:00] VITALS: BP 143/84
--- NOTE | 2019-01-17 18:02 | NUR ---
Problems reprioritized. Patient report given, questions answered & plan of care reviewed with LISA Santamaria.
[2019-01-17] MEDS: budesonide 0.5mg/2ml UD nebule IH SCH (19:35)
[2019-01-17] MEDS: pravastatin 40mg tablet PO SCH (20:56)
[2019-01-17 22:00] VITALS: BP 130/86
[2019-01-18 02:00] VITALS: BP 138/78
[2019-01-18] MEDS: albuterol 2.5 MG/3 ML nebule NEB SCH (02:00)
[2019-01-18] MEDS: HYDROcodone/acetaminophen 10/325mg tab PO PRN ×3 (02:42→13:21)
[2019-01-18] MEDS: LORazepam 0.5 MG tablet PO PRN ×2 (02:43→10:56)
[2019-01-18 06:00] VITALS: BP 125/75
[2019-01-18 06:22] LABS: BASOPHILS % (AUTO) 0.1 % (0-1); EOSINOPHILS % (AUTO) 0 % (0-6); HEMATOCRIT 38.9 % (42.0-52.0); LYMPHOCYTES # (AUTO) 2.7 X10'3 (1.1-4.8); LYMPHOCYTES % (AUTO) 25.6 % (21-51); MEAN CORPUSCULAR HEMOGLOBIN 28.7 PG (27.0-31.0); MEAN CORPUSCULAR HGB CONC 33.5 g/dL (33.0-36.5); MEAN CORPUSCULAR VOLUME 85.5 FL (78-98); MEAN PLATELET VOLUME 6.6 FL (7.4-10.4); MONOCYTES # (AUTO) 0.9 X10'3 (0-0.9); NEUTROPHILS # (AUTO) 6.8 X10'3 (1.8-7.7); NEUTROPHILS % (AUTO) 65.3 % (42-75); PLATELET COUNT 311 X10'3 (140-440); RED BLOOD COUNT 4.54 X10'6 (4.70-6.10); RED CELL DISTRIBUTION WIDTH 15.1 % (11.5-14.5); WHITE BLOOD COUNT 10.5 X10'3 (4.5-11.0)
--- NOTE | 2019-01-18 06:30 | NUR ---
Patient in room PCU 3017. I have received report from LISA Santamaria and had the opportunity to ask questions and assume patient care.
[2019-01-18 06:35] LABS: ALANINE AMINOTRANSFERASE 24 U/L (12-78); ALBUMIN 3.6 G/DL (3.4-5.0); ALBUMIN/GLOBULIN RATIO 1.2 (1.1-1.5); ALKALINE PHOSPHATASE 49 IU/L (46-116); ANION GAP 11 (8-16); ASPARTATE AMINO TRANSFERASE 9 U/L (10-37); BILIRUBIN,TOTAL 0.3 MG/DL (0.1-1.0); BLOOD UREA NITROGEN 24 MG/DL (7-18); BUN/CREATININE RATIO 35.3 (5.4-32.0); CALCIUM 8.9 MG/DL (8.5-10.1); CHLORIDE 104 MMOL/L (99-107); CREATININE 0.68 MG/DL (0.60-1.10); GLUCOSE 91 MG/DL (70-104); MAGNESIUM 2.2 MG/DL (1.5-2.4); POTASSIUM 3.8 MMOL/L (3.5-5.1); SODIUM 144 MMOL/L (135-145); TOTAL CARBON DIOXIDE 29.2 MMOL/L (24-32); TOTAL PROTEIN 6.5 G/DL (6.4-8.2); eGFR > 90 ML/MIN
--- NOTE | 2019-01-18 06:36 | NUR ---
Problems reprioritized. Patient report given, questions answered & plan of care reviewed with Magda GONZALEZ.
[2019-01-18] MEDS: budesonide 0.5mg/2ml UD nebule IH SCH (07:02)
[2019-01-18] MEDS: ipratropium/albuterol 3ml nebule NEB SCH ×2 (07:02→10:25)
[2019-01-18] MEDS ORDERED: methylPREDNISolone sod succ/PF 40mg inj. IV SCH (08:00)
[2019-01-18] MEDS: K and/or MAG REPLACEMENT MC SCH (08:00)
[2019-01-18] MEDS: levoFLOXACIN-Levaquin 500mg/D5 100 ML IV SCH (09:24)
[2019-01-18] MEDS: FLUoxetine 20mg capsule PO SCH (09:25)
[2019-01-18] MEDS: lactobacillus rhamnosus 10,000 MMU CELLS/CAPSULE PO SCH (09:25)
[2019-01-18] MEDS: aspirin 81mg tablet.DR PO SCH (09:25)
[2019-01-18] MEDS: gabapentin 300mg capsule PO SCH ×2 (09:25→13:21)
[2019-01-18] MEDS: lisinopril 20mg tablet PO SCH (09:26)
[2019-01-18] MEDS: enoxaparin 40mg/0.4ml syringe SQ SCH (09:26)
--- NOTE | 2019-01-18 10:41 | NUR ---
Paged to Respiratory for Urgent ABG
[2019-01-18 11:00] VITALS: BP 150/89
[2019-01-18 11:06] LABS: ABG BASE EXCESS 2.9 mmol/L (-2.0-3.0); ABG HCO3 26.3 mmol/L (22.0-26.0); ABG OXYGEN SATURATION 94.2 % (95-98); ABG PCO2 (T) 36.4 mmHg (35.0-45.0); ABG PH (T) 7.476 (7.350-7.450); ABG PO2 (T) 64.8 mmHg (83-108); ALLEN'S TEST Positive; FCOHb 0.3 % (0.5-1.5); FLOW 2 L/min; FMetHb 0.1 % (0.3-1.12); FO2Hb 93.8 % (94-100); TOTAL HEMOGLOBIN 14.2 G/dl (14.0-17.9)
[2019-01-18] MEDS ORDERED: LEVO500T2 PO (12:50)
--- NOTE | 2019-01-18 14:00 | NUR ---
pt discharged to home, taken via wc to curb to private car drivin by friend with all belongings, discharge pkt explained and signed. Sheila carr phoned to Anastasia Bardales per pt request.
== END 2019-01-18 13:55 | disposition home or self-care (01) | DRG 140 ==
LOC: ER 00:57 → ED HOLD 04:06 → EDBEDREQ 04:12 → PCU 3S 05:03
PROVIDERS: ADMIT Family Medicine; ATTEND Internal Medicine
PROC: 5A09357 Assistance with Respiratory Ventilation, Less than 24 Consecutive Hours, Continuous Positive Airway Pressure (ICD-10-PCS; principal; 2019-01-15)
PROC: 3E02340 Introduction of Influenza Vaccine into Muscle, Percutaneous Approach (ICD-10-PCS; 2019-01-15)
PROC: 3E0234Z Introduction of Serum, Toxoid and Vaccine into Muscle, Percutaneous Approach (ICD-10-PCS; 2019-01-15)
DX: J44.1 Chronic obstructive pulmonary disease with (acute) exacerbation (principal); J96.21 Acute and chronic respiratory failure with hypoxia; Z99.81 Dependence on supplemental oxygen; E78.5 Hyperlipidemia, unspecified; F32.9 Major depressive disorder, single episode, unspecified; F41.9 Anxiety disorder, unspecified; I10 Essential (primary) hypertension; Z96.649 Presence of unspecified artificial hip joint; F12.90 Cannabis use, unspecified, uncomplicated; G89.29 Other chronic pain; Z82.5 Family history of asthma and other chronic lower respiratory diseases; Z23 Encounter for immunization; Z79.899 Other long term (current) drug therapy
CPT/HCPCS: 36415; 36600; 71045; 80053; 80061; 82803; 83735; 83880; 84484; 85018; 85025; 87081; 90732; 93005; 94640; 94660; 94760; 96374; 99291; G0378; J1650; J1956; J2920; J2930; J7626; Q2037; Z7610

== ENCOUNTER 2021-04-15 10:18 | Emergency (ER) | payer MEDICAID ==
[~2021-04-15] VITALS: Ht 162.6 cm; Wt 61.0 kg
[~2021-04-15 10:18] MED LIST changes: -ASPI-1130 PO; +ASPI-1397 PO; -AZIT250T PO; +FLUT1DIS4 INH; -LISI-600 PO; +LISI20TA28 PO; -QUET25TA34 PO; +QUET25TA36 PO
[2021-04-15] MEDS ORDERED: methylPREDNISolone sod succ 125mg/2ml vial IV ONE (10:25)
--- NOTE | 2021-04-15 10:45 | NUR ---
ACUTE SOB, LONG EXPIRATORY PAUSE. PATIENT SPEAKING FIVE WORD SENTENCES. SOLUMEDROL GIVEN IM. AWAITING RT WHO WAS PAGED STAT. NO PRIMARY ER BEDS AVAILABLE. PATIENT SATURATION IS 96 PERCENT ON ROOM AIR.
[2021-04-15] MEDS ORDERED: albuterol 2.5 MG/3 ML nebule CONTNEB PRN ×2 (11:00→14:35)
[2021-04-15] MEDS ORDERED: ipratropium/albuterol 3ml nebule NEB SCH (11:00)
--- NOTE | 2021-04-15 11:15 | NUR ---
PATIENT IS DISCOMFORT FREE. IV DC'D CATH INTACT. PATIENT DISCH TO HOME WITH FLU INST. PATIENT SEEN AND TREATED BY ER MD. PATIENT EXHIBITS DISCHARGE INST.
[2021-04-15 11:21] LABS: BASOPHILS # (AUTO) 0.1 X10'3 (0-0.2); BASOPHILS % (AUTO) 0.7 % (0-1); EOSINOPHILS # (AUTO) 1.2 X10'3 (0-0.9); EOSINOPHILS % (AUTO) 9.5 % (0-6); HEMATOCRIT 46.6 % (42.0-52.0); HEMOGLOBIN 15.6 g/dl (14.0-17.9); LYMPHOCYTES # (AUTO) 2.1 X10'3 (1.1-4.8); MEAN CORPUSCULAR HEMOGLOBIN 28.9 PG (27.0-31.0); MEAN CORPUSCULAR HGB CONC 33.6 g/dL (33.0-36.5); MEAN PLATELET VOLUME 6.3 FL (7.4-10.4); MONOCYTES # (AUTO) 0.7 X10'3 (0-0.9); MONOCYTES % (AUTO) 5.7 % (2-12); NEUTROPHILS # (AUTO) 8.3 X10'3 (1.8-7.7); NEUTROPHILS % (AUTO) 67.1 % (42-75); PLATELET COUNT 512 X10'3 (140-440); RED BLOOD COUNT 5.41 X10'6 (4.70-6.10); RED CELL DISTRIBUTION WIDTH 13.1 % (11.5-14.5); WHITE BLOOD COUNT 12.4 X10'3 (4.5-11.0)
[2021-04-15 11:40] LABS: D-DIMER 0.43 MG/L FEU (0-0.50)
[2021-04-15 11:41] LABS: ALANINE AMINOTRANSFERASE 14 U/L (12-78); ALBUMIN 4.2 G/DL (3.4-5.0); ALBUMIN/GLOBULIN RATIO 1.1 (1.1-1.5); ALKALINE PHOSPHATASE 92 IU/L (46-116); ANION GAP 9 (8-16); ASPARTATE AMINO TRANSFERASE 20 U/L (10-37); BILIRUBIN,TOTAL 0.4 MG/DL (0.1-1.0); BLOOD UREA NITROGEN 21 MG/DL (7-18); BUN/CREATININE RATIO 25.3 (5.4-32.0); CHLORIDE 100 MMOL/L (99-107); CREATININE 0.83 MG/DL (0.60-1.10); GLUCOSE 138 MG/DL (70-104); POTASSIUM 3.8 MMOL/L (3.5-5.1); SODIUM 135 MMOL/L (135-145); TOTAL CARBON DIOXIDE 25.8 MMOL/L (24-32); TOTAL PROTEIN 7.9 G/DL (6.4-8.2); eGFR > 90 ML/MIN
--- NOTE | 2021-04-15 14:20 | NUR ---
Pt placed in room 15. Lung sounds: wheezes troughout all campos. RR=28, speaks in 3 word sentences.
[2021-04-15] MEDS ORDERED: ALBU8HFA PO ×3 (14:34→16:26)
[2021-04-15] MEDS ORDERED: DOXY100C43 PO ×3 (14:34→16:26)
[2021-04-15] MEDS ORDERED: PRED20TA PO ×3 (14:34→16:26)
[2021-04-15] MEDS ORDERED: ALB0.5UD IH ×3 (14:34→16:26)
[2021-04-15] MEDS ORDERED: ondansetron 4mg rapidly disintigrating tab PO ONE (15:10)
[2021-04-15] MEDS ORDERED: HYDROcodone/acetaminophen 10/325mg tab PO ONE (15:10)
[2021-04-15 16:42] VITALS: BP 114/81
--- NOTE | 2021-04-15 16:45 | NUR ---
Pt given and understands d/c instructions. IV d/c'd, catheter was intact. Ambulatory with a steady gait.
== END 2021-04-15 11:19 | disposition home or self-care (01) ==
LOC: ER 10:19
DX: J44.1 Chronic obstructive pulmonary disease with (acute) exacerbation (principal); J20.9 Acute bronchitis, unspecified; F12.90 Cannabis use, unspecified, uncomplicated; Z79.82 Long term (current) use of aspirin; Z79.2 Long term (current) use of antibiotics; Z79.899 Other long term (current) drug therapy
CPT/HCPCS: 36415; 71045; 80053; 84145; 85025; 85379; 93005; 94640; 94644; 96374; 99285; J2930; 94760; A7015

== ENCOUNTER 2021-04-28 19:57 | Inpatient (IN) | payer MEDICAID ==
[~2021-04-28] VITALS: Ht 167.6 cm; Wt 80.0 kg
[~2021-04-28 19:57] MED LIST changes: +ALB0.5UD IH; +ALBU8HFA PO; +DOXY100C43 PO; +PRED20TA PO; +etomidate 2mg/ml inj. ONE; +rocuronium bromide 100mg/10ml (10mg/ml) injection IV ONE
[2021-04-28] MEDS ORDERED: albuterol 2.5 MG/3 ML nebule CONTNEB PRN (20:15)
[2021-04-28] MEDS ORDERED: etomidate 2mg/ml inj. IV ONE (20:15)
[2021-04-28] MEDS ORDERED: methylPREDNISolone sod succ 125mg/2ml vial IV ONE (20:15)
[2021-04-28] MEDS ORDERED: magnesium 2GM in 50ml NS 50 ML IV ONE (20:15)
[2021-04-28] MEDS ORDERED: rocuronium 10mg/ml inj IV ONE (20:15)
[2021-04-28 20:19] VITALS: BP 160/115
--- NOTE | 2021-04-28 20:19 | NUR ---
RT pulled ET to 22 at the teeth Addendum: 04/28/21 at 2019 by RODO at the gums
[2021-04-28 20:25] LABS: BASOPHILS # (AUTO) 0.2 X10'3 (0-0.2); BASOPHILS % (AUTO) 1.3 % (0-1); EOSINOPHILS # (AUTO) 0.8 X10'3 (0-0.9); EOSINOPHILS % (AUTO) 5.3 % (0-6); HEMATOCRIT 41.6 % (42.0-52.0); HEMOGLOBIN 13.8 g/dl (14.0-17.9); LYMPHOCYTES # (AUTO) 4.7 X10'3 (1.1-4.8); MEAN CORPUSCULAR HGB CONC 33.2 g/dL (33.0-36.5); MEAN CORPUSCULAR VOLUME 87.5 FL (78-98); MEAN PLATELET VOLUME 6.4 FL (7.4-10.4); MONOCYTES # (AUTO) 1.6 X10'3 (0-0.9); MONOCYTES % (AUTO) 10.2 % (2-12); NEUTROPHILS # (AUTO) 8.4 X10'3 (1.8-7.7); NEUTROPHILS % (AUTO) 53.2 % (42-75); PLATELET COUNT 364 X10'3 (140-440); RED BLOOD COUNT 4.75 X10'6 (4.70-6.10); RED CELL DISTRIBUTION WIDTH 13.9 % (11.5-14.5); WHITE BLOOD COUNT 15.7 X10'3 (4.5-11.0)
--- NOTE | 2021-04-28 20:26 | NUR ---
Etomidate adminstered at 2002 Rocc adminstered at 2002 2005 failed intuabtion by solar process engineer Mag adminstered at 2007 2009 pt suctioned, glydscope used [address] Dixon
[2021-04-28 20:30] LABS: ABG HCO3 28.8 mmol/L (22.0-26.0); ABG OXYGEN SATURATION 96.5 % (94-97); ABG PCO2 (T) 98.3 mmHg (35.0-48.0); ABG PO2 (T) 110.3 mmHg (75.0-100.0); ALLEN'S TEST POSITIVE; FCOHb 0.1 % (0.0-3.9); FMetHb 0.4 % (0.0-1.5); PEEP 5 cm H2O; RESPIRATORY RATE 18 b/min; TIDAL VOLUME 400 mL; TOTAL HEMOGLOBIN 14.7 G/dl (14.0-18.0)
[2021-04-28] MEDS: propofol 1000mg/100ml bottle 100 ML IV PRN (20:33)
[2021-04-28 21:00] LABS: PLATELET ESTIMATE NORMAL; TOTAL CELLS COUNTED 100
[2021-04-28 21:16] LABS: ALANINE AMINOTRANSFERASE 64 U/L (12-78); ALBUMIN 3.6 G/DL (3.4-5.0); ALBUMIN/GLOBULIN RATIO 1.2 (1.1-1.5); ALKALINE PHOSPHATASE 76 IU/L (46-116); ANION GAP 7 (8-16); ASPARTATE AMINO TRANSFERASE 48 U/L (10-37); BILIRUBIN,TOTAL 0.3 MG/DL (0.1-1.0); BLOOD UREA NITROGEN 15 MG/DL (7-18); BUN/CREATININE RATIO 21.1 (5.4-32.0); CALCIUM 8.1 MG/DL (8.5-10.1); CHLORIDE 104 MMOL/L (99-107); CREATININE 0.71 MG/DL (0.60-1.10); GLUCOSE 228 MG/DL (70-104); SODIUM 140 MMOL/L (135-145); TOTAL CARBON DIOXIDE 28.6 MMOL/L (24-32); TOTAL PROTEIN 6.7 G/DL (6.4-8.2); eGFR > 90 ML/MIN
[2021-04-28] MEDS ORDERED: midazolam 100mg in NS 100ml 100 ML IV PRN (21:45)
[2021-04-28] MEDS ORDERED: MIDAZolam 5mg/ml 2ml vial IV ONE (21:45)
[2021-04-28] MEDS ORDERED: fentaNYL/PF 50MCG/1 ML 2ML syringe IV ONE (21:45)
[2021-04-28] MEDS ORDERED: FENTANYL-0.9 % NACL/PF 100 ML IV PRN (21:45)
[2021-04-28] MEDS ORDERED: morphine 4 MG/ML inj SYRINge IV PRN (21:50)
[2021-04-28] MEDS ORDERED: dexmedetomidin/NS 400mcg/100ml 100 ML IV SCH (21:50)
[2021-04-28] MEDS ORDERED: magnesium hydroxide 30ml (MOM) UD suspension PO PRN (21:50)
[2021-04-28] MEDS ORDERED: acetaminophen 325mg tablet PO PRN ×2 (21:50)
[2021-04-28] MEDS ORDERED: ondansetron/PF 4mg/2ml inj IV PRN (21:50)
[2021-04-28] MEDS ORDERED: VANCOMYCIN 1GM/200ML IVPB 200 ML IV ONE (21:50)
[2021-04-28] MEDS ORDERED: LIDOcaine 2% 10ml TOPICAL JELLY (Urojet) TP ONE (21:50)
[2021-04-28] MEDS ORDERED: vancomycin 1,500 MG in NS 300ml IV soln IV ONE (22:17)
[2021-04-28 22:30] LABS: APTT 24 SECONDS (22-32); D-DIMER 0.51 MG/L FEU (0-0.50)
[2021-04-28 22:31] VITALS: BP 136/88
[2021-04-28] MEDS ORDERED: METH-797 PO (22:32)
[2021-04-28] MEDS ORDERED: OMEP-50 PO (22:32)
[2021-04-28 22:40] LABS: MAGNESIUM 2.8 MG/DL (1.5-2.4)
--- NOTE | 2021-04-28 23:20 | NUR ---
Called report to LISA Muhammad in ICU. Questions answered. Will page respiratory to assist with ventilator transfer.
[2021-04-29] VITALS (30 sets, daily range): BP systolic 89–228; BP diastolic 58–88
[2021-04-29] MEDS: propofol 1000mg/100ml bottle 100 ML IV PRN (00:12)
[2021-04-29] MEDS: ipratropium/albuterol 3ml nebule NEB SCH ×7 (00:51→23:41)
[2021-04-29 02:12] LABS: ABG BASE EXCESS -1.4 mmol/L (-2.0-2.0); ABG HCO3 23.3 mmol/L (22.0-26.0); ABG OXYGEN SATURATION 97.2 % (94-97); ABG PCO2 (T) 38.3 mmHg (35.0-48.0); ABG PO2 (T) 87.9 mmHg (75.0-100.0); ALLEN'S TEST POSITIVE; FCOHb 0.3 % (0.0-3.9); FMetHb 0.3 % (0.0-1.5); FO2Hb 96.6 % (94-97); PATIENT TEMPERATURE 36.3; PEEP 10 cm H2O; RESPIRATORY RATE 22 b/min; TIDAL VOLUME 500 mL; TOTAL HEMOGLOBIN 14.6 G/dl (14.0-18.0)
[2021-04-29] MEDS: piperacillin/tazo 3.375gm/50ml 50 ML IV SCH ×3 (03:38→15:43)
[2021-04-29 05:30] LABS: MAGNESIUM 2.1 MG/DL (1.5-2.4); POTASSIUM 3.9 MMOL/L (3.5-5.1)
[2021-04-29 06:04] LABS: CLARITY,URINE CLOUDY (Clear); COLOR,URINE YELLOW (Yellow); GLUCOSE, URINE NEGATIVE (Neg); KETONES,URINE NEGATIVE (Neg); LEUKOCYTE ESTERASE ,URINE NEGATIVE (Neg); NITRITES, URINE NEGATIVE (Neg); OCCULT BLOOD,URINE MODERATE (Neg); PH,URINE 5.5 (4.8-8.0); PROTEIN,URINE NEGATIVE (Neg); UROBILINOGEN,URINE 0.2 E.U/dL (0.2-1.0)
[2021-04-29 06:08] LABS: UA COLLECTION TYPE NON-SPECIFIED
[2021-04-29 06:14] LABS: AMORPHOUS URATES 3+; BACTERIA,URINE FEW /HPF (Neg); SQUAMOUS EPITHELIAL CELL,UR FEW /LPF (FEW); WBC,URINE 0-4 /HPF (0-4)
[2021-04-29 06:22] LABS: URINE AMPHETAMINE SCREEN NEGATIVE (Neg); URINE BARBITUATE SCREEN NEGATIVE (Neg); URINE BENZODIAZEPINES SCREEN POSITIVE (Neg); URINE CANNABINOID SCREEN POSITIVE (Neg); URINE COCAINE SCREEN NEGATIVE (Neg); URINE METHADONE SCREEN NEGATIVE (Neg); URINE OPIATE SCREEN POSITIVE (Neg); URINE PHENCYCLIDINE SCREEN NEGATIVE (Neg)
[2021-04-29] MEDS: methylPREDNISolone sod succ 125mg/2ml vial IV SCH ×2 (07:30→20:22)
[2021-04-29] MEDS: famotidine/PF 10 mg/ml inj IV SCH ×2 (07:31→20:22)
[2021-04-29] MEDS: K and/or MAG REPLACEMENT MC SCH (07:32)
[2021-04-29] MEDS: enoxaparin 40mg/0.4ml syringe SUBCUT SCH (07:42)
[2021-04-29] MEDS ORDERED: iohexol 350MG/ML 100ml bottle IV ONE ×2 (09:02→13:40)
[2021-04-29] MEDS ORDERED: dexmedetomidine/D5W 100mL 100 ML IV SCH (10:43)
[2021-04-29] MEDS: VANCOmycin 1250MG/NS 250ml Bag 250 ML IV SCH ×2 (11:03→23:30)
[2021-04-29] MEDS ORDERED: cyclobenzaprine 10mg tablet PO PRN (11:45)
--- NOTE | 2021-04-29 12:18 | NUR ---
Initial: Pt intubated admit DX COPD exacerbation and respiratory failure w/ possible aspiration during intubation per EMR/RN at rounds. OG in place w/ MAP 87 this AM and TF to start today per unit coordinator; pending consult. Noted pt receiving Propofol at 3.84ml/hr during rounds this AM providing additional 101 kcals/day; TF recs below. Pt scaled wt during RD visit 73kg per bed scale making true BMI 26 at this time. Will continue to monitor for further nutrition intervention needs on vent. Rec: 1. Given Propofol at 3.84ml/hr providing additional 101 kcals/day; once TF to start per MD: Continuous TF using Vital AF at 70ml/hr goal; to provide 1680ml volume/day, 2016 kcals, 1361ml water, and 126g protein. 2. Once TF; additional water flush 100ml Q4H 3. Once TF; PALB Q /; daily wts 4. routine bowel care 5. Upon extubation; advance diet as medically indicated per SENIOR BRAND MANAGER/MD recs to heart healthy Addendum: 04/29/21 at [address] Amended: Links added.
--- NOTE | 2021-04-29 13:45 | NUR ---
CT Pt to CT. Pt's IV infiltrated with injection. New IV started and CT completed. Pt tolerated CT well. IV at R-upper arm d/c'd, cath tip intact.
--- NOTE | 2021-04-29 15:25 | NUR ---
Extubation Pt was extubated with MD at beside. Tolerated well and will continue to monitor
--- NOTE | 2021-04-29 16:03 | NUR ---
F/u 04/29: Pt s/p extubation per EMR. Will monitor for nutrition intervention needs this admit. Rec: 1. Upon extubation; advance diet as medically indicated per DRAMA DIRECTOR/MD recs to heart healthy 2. monitor for ONS needs pending PO diet advancement and intake trends 3. routine bowel care 4. weekly wts Addendum: 04/29/21 at [address] Amended: Links added.
--- NOTE | 2021-04-29 18:23 | NUR ---
Problems reprioritized. Patient report given, questions answered & plan of care reviewed with Sabina GONZALEZ.
[2021-04-29] MEDS: cyclobenzaprine 10mg tablet PO PRN (20:21)
[2021-04-29] MEDS: lactobacillus rhamnosus 10,000 MMU CELLS/CAPSULE PO SCH (20:21)
[2021-04-29] MEDS: QUEtiapine 25mg tablet PO PRN (20:22)
[2021-04-29] MEDS: FLUoxetine 20mg capsule PO SCH (20:22)
[2021-04-30] VITALS (24 sets, daily range): BP systolic 86–127; BP diastolic 50–92
[2021-04-30] MEDS: morphine 2 MG/ML inj. syringe IV PRN ×3 (01:21→15:03)
[2021-04-30] MEDS: ipratropium/albuterol 3ml nebule NEB SCH ×5 (01:40→22:41)
[2021-04-30] MEDS: piperacillin/tazo 3.375gm/50ml 50 ML IV SCH ×3 (02:59→17:06)
[2021-04-30] MEDS: aspirin 81mg, enteric-coated 1 TAB TABLET.DR PO SCH (08:00)
[2021-04-30] MEDS: K and/or MAG REPLACEMENT MC SCH (08:00)
[2021-04-30 08:28] LABS: BASOPHILS % (AUTO) 0.1 % (0-1); EOSINOPHILS % (AUTO) 0.1 % (0-6); HEMATOCRIT 37.3 % (42.0-52.0); HEMOGLOBIN 12.5 g/dl (14.0-17.9); LYMPHOCYTES # (AUTO) 0.8 X10'3 (1.1-4.8); LYMPHOCYTES % (AUTO) 4.5 % (21-51); MEAN CORPUSCULAR HEMOGLOBIN 28.9 PG (27.0-31.0); MEAN CORPUSCULAR HGB CONC 33.5 g/dL (33.0-36.5); MEAN CORPUSCULAR VOLUME 86.5 FL (78-98); MEAN PLATELET VOLUME 6.6 FL (7.4-10.4); MONOCYTES # (AUTO) 0.9 X10'3 (0-0.9); MONOCYTES % (AUTO) 4.9 % (2-12); NEUTROPHILS # (AUTO) 16.3 X10'3 (1.8-7.7); NEUTROPHILS % (AUTO) 90.4 % (42-75); PLATELET COUNT 242 X10'3 (140-440); RED BLOOD COUNT 4.31 X10'6 (4.70-6.10); RED CELL DISTRIBUTION WIDTH 13.5 % (11.5-14.5)
[2021-04-30 09:10] LABS: ALANINE AMINOTRANSFERASE 53 U/L (12-78); ALBUMIN 3.5 G/DL (3.4-5.0); ALBUMIN/GLOBULIN RATIO 1.3 (1.1-1.5); ALKALINE PHOSPHATASE 68 IU/L (46-116); ANION GAP 12 (8-16); ASPARTATE AMINO TRANSFERASE 37 U/L (10-37); BILIRUBIN,TOTAL 0.7 MG/DL (0.1-1.0); BLOOD UREA NITROGEN 22 MG/DL (7-18); BUN/CREATININE RATIO 28.2 (5.4-32.0); CALCIUM 8.9 MG/DL (8.5-10.1); CHLORIDE 101 MMOL/L (99-107); CREATININE 0.78 MG/DL (0.60-1.10); GLUCOSE 131 MG/DL (70-104); MAGNESIUM 2.6 MG/DL (1.5-2.4); POTASSIUM 4.5 MMOL/L (3.5-5.1); SODIUM 138 MMOL/L (135-145); TOTAL CARBON DIOXIDE 25.4 MMOL/L (24-32); TOTAL PROTEIN 6.1 G/DL (6.4-8.2); eGFR > 90 ML/MIN
[2021-04-30] MEDS: VANCOmycin 1250MG/NS 250ml Bag 250 ML IV SCH ×2 (10:01→22:54)
[2021-04-30] MEDS: azithromycin/NS 500mg/250ml 250 ML IV SCH (10:01)
[2021-04-30] MEDS: methylPREDNISolone sod succ 125mg/2ml vial IV SCH ×2 (10:14→20:19)
[2021-04-30] MEDS: enoxaparin 40mg/0.4ml syringe SUBCUT SCH (10:14)
[2021-04-30] MEDS: FLUoxetine 20mg capsule PO SCH ×2 (10:14→20:16)
[2021-04-30] MEDS: lactobacillus rhamnosus 10,000 MMU CELLS/CAPSULE PO SCH ×2 (10:14→20:15)
[2021-04-30] MEDS: lisinopril 20mg tablet PO SCH (10:15)
[2021-04-30] MEDS: famotidine/PF 10 mg/ml inj IV SCH ×2 (10:15→20:17)
[2021-04-30] MEDS ORDERED: VANCOMYCIN LEVEL IV ONE ×2 (10:30→22:30)
[2021-04-30] MEDS: HYDROcodone/acetaminophen 10/325mg tab PO PRN ×2 (16:13→20:16)
[2021-04-30] MEDS: QUEtiapine 25mg tablet PO PRN (21:30)
[2021-05-01] VITALS (13 sets, daily range): BP systolic 105–145; BP diastolic 66–98
[2021-05-01] MEDS: HYDROcodone/acetaminophen 10/325mg tab PO PRN ×5 (00:36→22:38)
[2021-05-01] MEDS: piperacillin/tazo 3.375gm/50ml 50 ML IV SCH ×2 (01:25→07:51)
[2021-05-01] MEDS: ipratropium/albuterol 3ml nebule NEB SCH ×5 (03:43→20:04)
[2021-05-01] MEDS: morphine 2 MG/ML inj. syringe IV PRN (06:33)
[2021-05-01 06:45] LABS: BASOPHILS % (AUTO) 0.1 % (0-1); EOSINOPHILS % (AUTO) 0 % (0-6); HEMATOCRIT 39.3 % (42.0-52.0); HEMOGLOBIN 13.1 g/dl (14.0-17.9); LYMPHOCYTES # (AUTO) 0.8 X10'3 (1.1-4.8); LYMPHOCYTES % (AUTO) 6.1 % (21-51); MEAN CORPUSCULAR HEMOGLOBIN 28.9 PG (27.0-31.0); MEAN CORPUSCULAR HGB CONC 33.4 g/dL (33.0-36.5); MEAN CORPUSCULAR VOLUME 86.7 FL (78-98); MEAN PLATELET VOLUME 6.9 FL (7.4-10.4); MONOCYTES # (AUTO) 0.7 X10'3 (0-0.9); MONOCYTES % (AUTO) 5.1 % (2-12); NEUTROPHILS # (AUTO) 11.8 X10'3 (1.8-7.7); NEUTROPHILS % (AUTO) 88.7 % (42-75); PLATELET COUNT 254 X10'3 (140-440); RED BLOOD COUNT 4.54 X10'6 (4.70-6.10); RED CELL DISTRIBUTION WIDTH 13.9 % (11.5-14.5); WHITE BLOOD COUNT 13.3 X10'3 (4.5-11.0)
[2021-05-01 07:26] LABS: ALANINE AMINOTRANSFERASE 46 U/L (12-78); ALBUMIN 3.5 G/DL (3.4-5.0); ALBUMIN/GLOBULIN RATIO 1.2 (1.1-1.5); ALKALINE PHOSPHATASE 63 IU/L (46-116); ANION GAP 11 (8-16); ASPARTATE AMINO TRANSFERASE 23 U/L (10-37); BILIRUBIN,TOTAL 0.5 MG/DL (0.1-1.0); BLOOD UREA NITROGEN 21 MG/DL (7-18); BUN/CREATININE RATIO 27.3 (5.4-32.0); CALCIUM 8.9 MG/DL (8.5-10.1); CHLORIDE 104 MMOL/L (99-107); CREATININE 0.77 MG/DL (0.60-1.10); GLUCOSE 142 MG/DL (70-104); MAGNESIUM 2.3 MG/DL (1.5-2.4); POTASSIUM 4.1 MMOL/L (3.5-5.1); SODIUM 140 MMOL/L (135-145); TOTAL CARBON DIOXIDE 25.1 MMOL/L (24-32); TOTAL PROTEIN 6.5 G/DL (6.4-8.2); eGFR > 90 ML/MIN
[2021-05-01] MEDS: enoxaparin 40mg/0.4ml syringe SUBCUT SCH (07:53)
[2021-05-01] MEDS: azithromycin/NS 500mg/250ml 250 ML IV SCH (07:53)
[2021-05-01] MEDS: aspirin 81mg, enteric-coated 1 TAB TABLET.DR PO SCH (07:54)
[2021-05-01] MEDS: famotidine/PF 10 mg/ml inj IV SCH (07:54)
[2021-05-01] MEDS: FLUoxetine 20mg capsule PO SCH ×2 (07:55→20:25)
[2021-05-01] MEDS: methylPREDNISolone sod succ 125mg/2ml vial IV SCH ×2 (08:00→20:25)
[2021-05-01] MEDS: K and/or MAG REPLACEMENT MC SCH (08:00)
[2021-05-01] MEDS: lisinopril 20mg tablet PO SCH (08:00)
[2021-05-01] MEDS: lactobacillus rhamnosus 10,000 MMU CELLS/CAPSULE PO SCH ×2 (08:00→20:25)
--- NOTE | 2021-05-01 14:11 | NUR ---
Patient removed one IV overnight by getting up to commode without assistance, pulling it too taut and out. At shift change this morning, the patient removed his other IV due to the same behavior. Patient displays many signs of anxiety that impair progression in his coalescence. Hospitalist is asked for Ativan and d/C of tele orders (patient has remained in NSR and hopes are that removing tethers with decrease his fall risk and anxiety). Hospitalist confirms that we may do so. Patient has been a tele patient for > 24 hours, but remains in ICU due to bed situation. We will adhere to med/surg protocol or care, spot checking vitals in hopes of reducing anxiety with removal of alarms and tethers. Hospitalist verbalizes that he will get the patient some Ativan.
[2021-05-01] MEDS: LORazepam 2 mg/ml vial IV PRN ×2 (15:06→22:39)
--- NOTE | 2021-05-01 17:17 | NUR ---
End of Shift synopsis Patient continues to be an overflow patient from medical floor. Telemetry was discontinued due to NSR continually and risk of fall coupled with anxiety associated with tethering. Ativan was ordered and patient has responded nicely to this and his [place] in combination. He remains alert and oriented, but with much less anxiety and fidgeting. Goals for discharge include implementing case management and finding some continuous pulmonary care.
[2021-05-01] MEDS: famotidine 20mg tablet PO SCH (20:25)
[2021-05-01] MEDS: cyclobenzaprine 10mg tablet PO PRN (20:25)
[2021-05-02] VITALS (10 sets, daily range): BP systolic 115–163; BP diastolic 72–103
[2021-05-02] MEDS: ipratropium/albuterol 3ml nebule NEB SCH ×7 (00:10→23:31)
[2021-05-02 06:03] LABS: BASOPHILS % (AUTO) 0.1 % (0-1); EOSINOPHILS % (AUTO) 0 % (0-6); HEMATOCRIT 39.3 % (42.0-52.0); HEMOGLOBIN 13.2 g/dl (14.0-17.9); LYMPHOCYTES # (AUTO) 0.7 X10'3 (1.1-4.8); MEAN CORPUSCULAR HEMOGLOBIN 29.4 PG (27.0-31.0); MEAN CORPUSCULAR HGB CONC 33.7 g/dL (33.0-36.5); MEAN CORPUSCULAR VOLUME 87.3 FL (78-98); MEAN PLATELET VOLUME 6.7 FL (7.4-10.4); MONOCYTES # (AUTO) 0.4 X10'3 (0-0.9); MONOCYTES % (AUTO) 4.1 % (2-12); NEUTROPHILS # (AUTO) 8.9 X10'3 (1.8-7.7); NEUTROPHILS % (AUTO) 88.8 % (42-75); PLATELET COUNT 258 X10'3 (140-440); RED CELL DISTRIBUTION WIDTH 13.5 % (11.5-14.5)
--- NOTE | 2021-05-02 06:42 | NUR ---
Patient in room ICU 2039. I have received report from Sabina GONZALEZ and had the opportunity to ask questions and assume patient care.
[2021-05-02 06:55] LABS: ALANINE AMINOTRANSFERASE 45 U/L (12-78); ALBUMIN 3.3 G/DL (3.4-5.0); ALBUMIN/GLOBULIN RATIO 1.2 (1.1-1.5); ALKALINE PHOSPHATASE 58 IU/L (46-116); ANION GAP 9 (8-16); ASPARTATE AMINO TRANSFERASE 19 U/L (10-37); BILIRUBIN,TOTAL 0.3 MG/DL (0.1-1.0); BLOOD UREA NITROGEN 17 MG/DL (7-18); BUN/CREATININE RATIO 26.2 (5.4-32.0); CALCIUM 8.8 MG/DL (8.5-10.1); CHLORIDE 104 MMOL/L (99-107); CREATININE 0.65 MG/DL (0.60-1.10); GLUCOSE 136 MG/DL (70-104); MAGNESIUM 2.3 MG/DL (1.5-2.4); POTASSIUM 4.2 MMOL/L (3.5-5.1); SODIUM 140 MMOL/L (135-145); TOTAL CARBON DIOXIDE 27.3 MMOL/L (24-32); eGFR > 90 ML/MIN
[2021-05-02] MEDS: methylPREDNISolone sod succ 125mg/2ml vial IV SCH ×2 (07:23→19:49)
[2021-05-02] MEDS: lisinopril 20mg tablet PO SCH (07:24)
[2021-05-02] MEDS: lactobacillus rhamnosus 10,000 MMU CELLS/CAPSULE PO SCH ×2 (07:25→19:50)
[2021-05-02] MEDS: FLUoxetine 20mg capsule PO SCH ×2 (07:25→19:50)
[2021-05-02] MEDS: enoxaparin 40mg/0.4ml syringe SUBCUT SCH (07:25)
[2021-05-02] MEDS: famotidine 20mg tablet PO SCH ×2 (07:27→19:50)
[2021-05-02] MEDS: aspirin 81mg, enteric-coated 1 TAB TABLET.DR PO SCH (07:30)
[2021-05-02] MEDS: piperacillin/tazo 3.375gm/50ml 50 ML IV SCH ×2 (07:41)
--- NOTE | 2021-05-02 10:26 | NUR ---
Problems reprioritized. Patient report given, questions answered & plan of care reviewed with Violeta RN on PCU - Pt was transfered to bed 3017A after report called. Belongings with pt: Pants, t-shirt, Keli phone chiu, black/yellow phone cord & white custodial supervisor. No other belongings. Pt able to get to W/C and out when to room. Got to bed. Ancef infusing still. Violeta and kimberly met us in room to assist with settelling pt in be.
--- NOTE | 2021-05-02 10:36 | NUR ---
Reassessment: Pt has been extubated 04/29 and diet has been advanced to Regular 04/30. Pt initially refused first two meals though had 100% of third meal, able to feed self with now chewing/swallowing difficulty reported, pt will be meeting needs if continues w/ 100% intake. LBM 05/01. Will continue to monitor need for ONS pending further PO trends. Rec: 1. Continue Regular diet as tolerated 2. monitor for ONS needs pending PO trends 3. routine bowel care 4. weekly wts Addendum: 05/02/21 at [address] Amended: Links added.
[2021-05-02] MEDS: HYDROcodone/acetaminophen 10/325mg tab PO PRN ×2 (11:37→18:04)
[2021-05-02] MEDS: azithromycin/NS 500mg/250ml 250 ML IV SCH (11:37)
[2021-05-02 11:40] LABS: ABG BASE EXCESS -5.2 mmol/L (-2.0-2.0); ABG HCO3 26.3 mmol/L (22.0-26.0); ABG OXYGEN SATURATION 98.8 % (94-97); ABG PCO2 (T) 77.6 mmHg (35.0-48.0); ABG PO2 (T) 183.3 mmHg (75.0-100.0); ALLEN'S TEST POSITIVE; FMetHb 0.1 % (0.0-1.5); FO2Hb 96.7 % (94-97); PEEP 5 cm H2O; RESPIRATORY RATE 20 b/min; TIDAL VOLUME 400 mL; TOTAL HEMOGLOBIN 13.9 G/dl (14.0-18.0)
[2021-05-02] MEDS ORDERED: levoFLOXACIN 750MG TABLET PO SCH (17:35)
[2021-05-02] MEDS ORDERED: predniSONE 20 mg tablet PO SCH (17:35)
--- NOTE | 2021-05-02 18:33 | NUR ---
Problems reprioritized. Patient report given, questions answered & plan of care reviewed with felisha paulson.
[2021-05-02] MEDS: LORazepam 1 MG tablet PO PRN (19:57)
[2021-05-02] MEDS: QUEtiapine 25mg tablet PO PRN (21:21)
[2021-05-02] MEDS ORDERED: VANCOMYCIN LEVEL IV ONE (22:30)
[2021-05-03 02:00] VITALS: BP 136/89
[2021-05-03] MEDS: HYDROcodone/acetaminophen 10/325mg tab PO PRN ×2 (02:19→08:53)
[2021-05-03] MEDS: LORazepam 1 MG tablet PO PRN (02:22)
[2021-05-03] MEDS: ipratropium/albuterol 3ml nebule NEB SCH ×2 (02:29→09:02)
[2021-05-03 06:00] VITALS: BP 139/92
[2021-05-03 06:00] LABS: BASOPHILS % (AUTO) 0 % (0-1); EOSINOPHILS % (AUTO) 0 % (0-6); HEMATOCRIT 41.7 % (42.0-52.0); HEMOGLOBIN 13.9 g/dl (14.0-17.9); LYMPHOCYTES # (AUTO) 0.7 X10'3 (1.1-4.8); LYMPHOCYTES % (AUTO) 7.1 % (21-51); MEAN CORPUSCULAR HEMOGLOBIN 28.9 PG (27.0-31.0); MEAN CORPUSCULAR HGB CONC 33.2 g/dL (33.0-36.5); MEAN PLATELET VOLUME 6.8 FL (7.4-10.4); MONOCYTES # (AUTO) 0.6 X10'3 (0-0.9); MONOCYTES % (AUTO) 6.2 % (2-12); NEUTROPHILS % (AUTO) 86.7 % (42-75); PLATELET COUNT 302 X10'3 (140-440); RED CELL DISTRIBUTION WIDTH 13.9 % (11.5-14.5); WHITE BLOOD COUNT 10.4 X10'3 (4.5-11.0)
[2021-05-03 06:08] LABS: ALANINE AMINOTRANSFERASE 43 U/L (12-78); ALBUMIN 3.4 G/DL (3.4-5.0); ALBUMIN/GLOBULIN RATIO 1.1 (1.1-1.5); ALKALINE PHOSPHATASE 62 IU/L (46-116); ANION GAP 7 (8-16); ASPARTATE AMINO TRANSFERASE 13 U/L (10-37); BILIRUBIN,TOTAL 0.2 MG/DL (0.1-1.0); BLOOD UREA NITROGEN 17 MG/DL (7-18); CALCIUM 8.9 MG/DL (8.5-10.1); CHLORIDE 104 MMOL/L (99-107); CREATININE 0.81 MG/DL (0.60-1.10); GLUCOSE 162 MG/DL (70-104); MAGNESIUM 2.2 MG/DL (1.5-2.4); POTASSIUM 3.9 MMOL/L (3.5-5.1); SODIUM 142 MMOL/L (135-145); TOTAL CARBON DIOXIDE 30.6 MMOL/L (24-32); TOTAL PROTEIN 6.4 G/DL (6.4-8.2); eGFR > 90 ML/MIN
--- NOTE | 2021-05-03 06:13 | NUR ---
Problems reprioritized. Patient report given, questions answered & plan of care reviewed with August. Addendum: 05/03/21 at 0613 by Larry Solomon RN Amended: Links added.
--- NOTE | 2021-05-03 06:20 | NUR ---
Problems reprioritized. Patient report given, questions answered & plan of care reviewed with August. Addendum: 05/03/21 at 0621 by Larry Solomon RN Amended: Links added.
[2021-05-03] MEDS ORDERED: PRED10TA23 PO (08:37)
[2021-05-03] MEDS: methylPREDNISolone sod succ 125mg/2ml vial IV SCH (08:40)
[2021-05-03] MEDS: enoxaparin 40mg/0.4ml syringe SUBCUT SCH (08:41)
[2021-05-03] MEDS: FLUoxetine 20mg capsule PO SCH (08:41)
[2021-05-03] MEDS: famotidine 20mg tablet PO SCH (08:42)
[2021-05-03] MEDS: lisinopril 20mg tablet PO SCH (08:42)
[2021-05-03] MEDS: lactobacillus rhamnosus 10,000 MMU CELLS/CAPSULE PO SCH (08:42)
[2021-05-03] MEDS: aspirin 81mg, enteric-coated 1 TAB TABLET.DR PO SCH (08:43)
[2021-05-03] MEDS ORDERED: LEVO750T46 PO (10:23)
[2021-05-03 11:00] VITALS: BP 140/95
--- NOTE | 2021-05-03 11:10 | NUR ---
Malnutrition Consult: Noted pt stated wt loss of 14-23 lbs per RN malnutrition screen. Pt scaled wt on previous visit, 61 kg on 04/15; current admit wt of 80 kg not scaled per EMR. No signs of muscle/fat wasting observed at bedside. Pt w/ normal/general strength and no edema noted. Pt PO intake ~67% of regular meals, partially meeting nutritional needs. LBM 05/02; bowel care available PRN. Pt does not meet minimum criteria for malnutrition. Will continue to monitor. Addendum: 05/03/21 at [address] Amended: Links added. Addendum: 05/03/21 at [address] I have reviewed assessment by internet marketing intern
--- NOTE | 2021-05-03 12:25 | NUR ---
Pt has been discharged. Iv and tele monitor removed. pt verbalized understanding and signed all discharge paperwork. Left floor ambulatory with home O2 delivered by [facility] (pt has home oxygen already set up in his home provided by provided by [facility], and just needed O2 for transportation home). pt packed all his own personal belongings.
== END 2021-05-03 11:22 | disposition home or self-care (01) | DRG 133 ==
LOC: ER 19:57 → ED HOLD 22:10 → ICU 2S 23:17 → PCU 3S 05-02 10:04
PROVIDERS: ADMIT Internal Medicine Critical Care Medicine; ATTEND Internal Medicine Critical Care Medicine
PROC: 5A1935Z Respiratory Ventilation, Less than 24 Consecutive Hours (ICD-10-PCS; principal; 2021-04-28)
PROC: 0BH17EZ Insertion of Endotracheal Airway into Trachea, Via Natural or Artificial Opening (ICD-10-PCS; 2021-04-28)
PROC: B32T1ZZ Computerized Tomography (CT Scan) of Left Pulmonary Artery using Low Osmolar Contrast (ICD-10-PCS; 2021-04-29)
PROC: B3201ZZ Computerized Tomography (CT Scan) of Thoracic Aorta using Low Osmolar Contrast (ICD-10-PCS; 2021-04-29)
PROC: B32S1ZZ Computerized Tomography (CT Scan) of Right Pulmonary Artery using Low Osmolar Contrast (ICD-10-PCS; 2021-04-29)
DX: J96.01 Acute respiratory failure with hypoxia (principal); J18.9 Pneumonia, unspecified organism; J44.0 Chronic obstructive pulmonary disease with (acute) lower respiratory infection; T17.908A Unspecified foreign body in respiratory tract, part unspecified causing other injury, initial encounter; J44.1 Chronic obstructive pulmonary disease with (acute) exacerbation; J45.901 Unspecified asthma with (acute) exacerbation; Z20.822 Contact with and (suspected) exposure to COVID-19; G89.29 Other chronic pain; F41.9 Anxiety disorder, unspecified; F12.90 Cannabis use, unspecified, uncomplicated; Y92.230 Patient room in hospital as the place of occurrence of the external cause; X58.XXXA Exposure to other specified factors, initial encounter; J96.02 Acute respiratory failure with hypercapnia; F32.A Depression, unspecified; I10 Essential (primary) hypertension; Z79.82 Long term (current) use of aspirin; Z79.899 Other long term (current) drug therapy; Z87.01 Personal history of pneumonia (recurrent); Z82.5 Family history of asthma and other chronic lower respiratory diseases; Z78.1 Physical restraint status; Z91.19 Patient's noncompliance with other medical treatment and regimen; Y93.89 Activity, other specified; Y99.8 Other external cause status
CPT/HCPCS: 36000; 36415; 36600; 71045; 71275; 76937; 80053; 80202; 80305; 81001; 82803; 82948; 83605; 83735; 83880; 84132; 84145; 84484; 85007; 85018; 85025; 85379; 85610; 85730; 87070; 87635; 93005; 93306; 94002; 94003; 94640; 94760; 94799; 96365; 96368; 97116; 97161; 97530; 99291; A7015; G0378; J0456; J1650; J2060; J2250; J2270; J2543; J2704; J2930; J3010; J3370; J3475; J3490; J7040; Q9967

== ENCOUNTER 2021-06-24 12:22 | Inpatient (IN) | payer MEDICAID ==
[~2021-06-24] VITALS: Ht 162.6 cm; Wt 68.2 kg
[~2021-06-24 12:22] MED LIST changes: -ALB0.5UD IH; -ALBU8HFA PO; -DOXY100C43 PO; -FLUT1DIS4 INH; -GABA-532 PO; -HYDR-3686 PO; +LEVO750T46 PO; +METH-797 PO; +OMEP20CA16 PO; -PRAV40TA3 PO; -PRED20TA PO; -TIOT18CA3 PO; -etomidate 2mg/ml inj. ONE; -rocuronium bromide 100mg/10ml (10mg/ml) injection IV ONE
[2021-06-24] MEDS ORDERED: normal saline 1000ML IV soln IVB ONE (12:30)
[2021-06-24] MEDS ORDERED: proCHLORperazine 10 MG/2 ml inj IM ONE (12:30)
[2021-06-24] MEDS ORDERED: haloperidol lactate 5mg/ml inj IM ONE (12:50)
--- NOTE | 2021-06-24 12:51 | NUR ---
piv placed, labs drawn and sent. xray at bedside. pt continues to wretch loudly. pt now requesting pain meds, stating he needs "norco"
[2021-06-24 13:03] LABS: BASOPHILS # (AUTO) 0.2 X10'3 (0-0.2); BASOPHILS % (AUTO) 0.7 % (0-1); EOSINOPHILS # (AUTO) 0.3 X10'3 (0-0.9); EOSINOPHILS % (AUTO) 0.7 % (0-6); HEMATOCRIT 53.9 % (42.0-52.0); HEMOGLOBIN 17.8 g/dl (14.0-17.9); LYMPHOCYTES # (AUTO) 3.1 X10'3 (1.1-4.8); MEAN CORPUSCULAR VOLUME 84.8 FL (78-98); MEAN PLATELET VOLUME 6.1 FL (7.4-10.4); MONOCYTES # (AUTO) 2.1 X10'3 (0-0.9); MONOCYTES % (AUTO) 5.9 % (2-12); NEUTROPHILS % (AUTO) 83.7 % (42-75); PLATELET COUNT 511 X10'3 (140-440); RED BLOOD COUNT 6.36 X10'6 (4.70-6.10); RED CELL DISTRIBUTION WIDTH 15.4 % (11.5-14.5)
[2021-06-24 13:08] LABS: WHITE BLOOD COUNT 34.7 X10'3 (4.5-11.0)
[2021-06-24] MEDS ORDERED: normal saline 1000ML IV soln IV ONE (13:10)
[2021-06-24 13:11] LABS: ALANINE AMINOTRANSFERASE 32 U/L (12-78); ALBUMIN/GLOBULIN RATIO 1.5 (1.1-1.5); ALKALINE PHOSPHATASE 61 IU/L (46-116); ANION GAP 14 (8-16); ASPARTATE AMINO TRANSFERASE 21 U/L (10-37); BILIRUBIN,TOTAL 1.3 MG/DL (0.1-1.0); BLOOD UREA NITROGEN 28 MG/DL (7-18); BUN/CREATININE RATIO 18.1 (5.4-32.0); CALCIUM 10.2 MG/DL (8.5-10.1); CHLORIDE 99 MMOL/L (99-107); CREATININE 1.55 MG/DL (0.60-1.10); ETHANOL < 0.010 GM/DL (0.0-0.010); GLUCOSE 218 MG/DL (70-104); LIPASE 119 U/L (73-393); POTASSIUM 4.3 MMOL/L (3.5-5.1); SODIUM 132 MMOL/L (135-145); TOTAL PROTEIN 8.4 G/DL (6.4-8.2); eGFR 46 ML/MIN
[2021-06-24 13:18] LABS: PLATELET ESTIMATE INCREASED; TOTAL CELLS COUNTED 100
[2021-06-24 13:19] LABS: TOXIC GRANULATION 1+
[2021-06-24 13:43] LABS: MAGNESIUM 2.2 MG/DL (1.5-2.4)
[2021-06-24] MEDS ORDERED: potassium Cl 20 mEq SR tablet PO PRN ×2 (15:05)
[2021-06-24] MEDS ORDERED: magnesium 2GM in 50ml NS 50 ML IV PRN (15:05)
[2021-06-24] MEDS ORDERED: ipratropium/albuterol 3ml nebule NEB PRN (15:05)
[2021-06-24] MEDS ORDERED: magnesium hydroxide 30ml (MOM) UD suspension PO PRN (15:05)
[2021-06-24] MEDS ORDERED: acetaminophen 325mg tablet PO PRN ×2 (15:05)
[2021-06-24] MEDS ORDERED: potassium CL 10mEq/100ml bag 100 ML IV PRN (15:05)
[2021-06-24] MEDS ORDERED: magnesium 4gm in 100ml NS 100 ML IV PRN (15:05)
[2021-06-24] MEDS ORDERED: proCHLORperazine 10 MG/2 ml inj IV PRN (15:05)
[2021-06-24] MEDS ORDERED: albuterol 2.5 MG/3 ML nebule NEB PRN (15:05)
[2021-06-24] MEDS ORDERED: HYDROmorphone inj. 0.5 MG/0.5 ML DISP.SYRIN IV PRN (15:55)
[2021-06-24] MEDS ORDERED: HYDROmorphone 1 mg/ml syringe IV PRN (15:55)
[2021-06-24] MEDS ORDERED: diazepam inj 5 MG/ML inj. IV ONE (15:55)
[2021-06-24] MEDS ORDERED: diazepam 5mg tablet PO PRN (15:55)
[2021-06-24] MEDS ORDERED: HYDROcodone/acetaminophen 10/325mg tab PO PRN (16:50)
[2021-06-24] MEDS: normal saline 1000ml 1,000 ML IV SCH (17:00)
--- NOTE | 2021-06-24 17:36 | NUR ---
[place] 9daughter) [phone]
--- NOTE | 2021-06-24 17:54 | NUR ---
stool sample collected sent to lab
[2021-06-24] MEDS: ondansetron/PF 4mg/2ml inj IV PRN (18:18)
--- NOTE | 2021-06-24 18:25 | NUR ---
Problems reprioritized. Patient report given, questions answered & plan of care reviewed with LISA Buchanan. Pt has not arrived on floor yet. Report recieved from ER Nurse Maryan.
[2021-06-24 20:00] VITALS: BP 148/106
[2021-06-24] MEDS: K and/or MAG REPLACEMENT MC SCH (20:00)
[2021-06-24] MEDS: docusate sod 100mg capsule PO SCH (20:00)
[2021-06-24] MEDS: HYDROcodone/acetaminophen 10/325mg tab PO PRN (20:16)
[2021-06-24] MEDS: FLUoxetine 20mg capsule PO SCH (20:16)
[2021-06-24] MEDS: QUEtiapine 25mg tablet PO SCH (20:17)
[2021-06-24] MEDS: enoxaparin 40mg/0.4ml syringe SQ SCH (20:17)
[2021-06-24] MEDS: ciprofloxacin lact 400MG/200ML 200 ML IV SCH (20:17)
[2021-06-24] MEDS: metroNIDAZOLE-Flagyl 750mg/NS 150 ML IV SCH (23:14)
[2021-06-25] VITALS: BP 132/82
[2021-06-25] MEDS: normal saline 1000ml 1,000 ML IV SCH ×3 (05:35→19:08)
--- NOTE | 2021-06-25 06:41 | NUR ---
Patient admitted from ER on 06/24 at 1840. Problems reprioritized. Patient report given, questions answered & plan of care reviewed with LISA Ladd.
[2021-06-25 06:51] LABS: BASOPHILS # (AUTO) 0.1 X10'3 (0-0.2); BASOPHILS % (AUTO) 0.4 % (0-1); EOSINOPHILS # (AUTO) 0.2 X10'3 (0-0.9); EOSINOPHILS % (AUTO) 1.3 % (0-6); HEMATOCRIT 39.6 % (42.0-52.0); HEMOGLOBIN 13.4 g/dl (14.0-17.9); LYMPHOCYTES # (AUTO) 1.5 X10'3 (1.1-4.8); LYMPHOCYTES % (AUTO) 11.3 % (21-51); MEAN CORPUSCULAR HGB CONC 33.9 g/dL (33.0-36.5); MEAN CORPUSCULAR VOLUME 85.7 FL (78-98); MEAN PLATELET VOLUME 5.8 FL (7.4-10.4); MONOCYTES % (AUTO) 7.7 % (2-12); NEUTROPHILS # (AUTO) 10.4 X10'3 (1.8-7.7); NEUTROPHILS % (AUTO) 79.3 % (42-75); PLATELET COUNT 250 X10'3 (140-440); RED BLOOD COUNT 4.63 X10'6 (4.70-6.10); RED CELL DISTRIBUTION WIDTH 15.4 % (11.5-14.5); WHITE BLOOD COUNT 13.2 X10'3 (4.5-11.0)
[2021-06-25 07:00] VITALS: BP 145/72
[2021-06-25 07:04] LABS: ALANINE AMINOTRANSFERASE 25 U/L (12-78); ALBUMIN 3.2 G/DL (3.4-5.0); ALBUMIN/GLOBULIN RATIO 1.2 (1.1-1.5); ALKALINE PHOSPHATASE 40 IU/L (46-116); ANION GAP 7 (8-16); ASPARTATE AMINO TRANSFERASE 26 U/L (10-37); BILIRUBIN,TOTAL 1.2 MG/DL (0.1-1.0); BLOOD UREA NITROGEN 19 MG/DL (7-18); BUN/CREATININE RATIO 29.2 (5.4-32.0); CALCIUM 8.3 MG/DL (8.5-10.1); CHLORIDE 108 MMOL/L (99-107); CREATININE 0.65 MG/DL (0.60-1.10); GLUCOSE 94 MG/DL (70-104); MAGNESIUM 2.1 MG/DL (1.5-2.4); POTASSIUM 3.9 MMOL/L (3.5-5.1); SODIUM 138 MMOL/L (135-145); TOTAL CARBON DIOXIDE 22.6 MMOL/L (24-32); TOTAL PROTEIN 5.8 G/DL (6.4-8.2); eGFR > 90 ML/MIN
[2021-06-25] MEDS: lisinopril 20mg tablet PO SCH (07:39)
[2021-06-25] MEDS: HYDROcodone/acetaminophen 5mg/325mg tablet PO PRN ×3 (07:39→15:12)
[2021-06-25] MEDS: FLUoxetine 20mg capsule PO SCH ×2 (07:40→20:45)
[2021-06-25] MEDS: ciprofloxacin lact 400MG/200ML 200 ML IV SCH ×2 (07:40→20:46)
[2021-06-25] MEDS: ondansetron/PF 4mg/2ml inj IV PRN (07:40)
[2021-06-25] MEDS: pantoprazole 40mg Tablet.DR PO SCH (07:40)
[2021-06-25 07:49] VITALS: BP 138/72
[2021-06-25] MEDS: docusate sod 100mg capsule PO SCH ×2 (07:49→20:00)
[2021-06-25] MEDS: K and/or MAG REPLACEMENT MC SCH ×2 (08:00→20:00)
[2021-06-25] MEDS: metroNIDAZOLE-Flagyl 750mg/NS 150 ML IV SCH ×3 (08:51→23:40)
[2021-06-25 10:41] LABS: C DIFF SPECIMEN=DIARRHEA? ACCEPTABLE; C DIFFICILE TOXINS A&B NEGATIVE (Neg)
[2021-06-25 13:37] VITALS: BP 118/80
[2021-06-25 18:00] VITALS: BP 133/86
--- NOTE | 2021-06-25 18:34 | NUR ---
Problems reprioritized. Patient report given, questions answered & plan of care reviewed with LISA Buchanan.
[2021-06-25] MEDS: HYDROcodone/acetaminophen 10/325mg tab PO PRN ×2 (19:13→23:46)
[2021-06-25] MEDS: QUEtiapine 25mg tablet PO SCH (20:44)
[2021-06-25] MEDS: enoxaparin 40mg/0.4ml syringe SQ SCH (20:46)
[2021-06-26] VITALS: BP 117/82
[2021-06-26] MEDS: HYDROcodone/acetaminophen 10/325mg tab PO PRN ×2 (05:05→21:38)
--- NOTE | 2021-06-26 06:53 | NUR ---
Report given to LISA Ladd, for continuation of care. Patient remains in stable condition.
[2021-06-26 07:04] LABS: BASOPHILS # (AUTO) 0.1 X10'3 (0-0.2); BASOPHILS % (AUTO) 0.8 % (0-1); EOSINOPHILS # (AUTO) 0.2 X10'3 (0-0.9); EOSINOPHILS % (AUTO) 2.9 % (0-6); HEMATOCRIT 38.7 % (42.0-52.0); HEMOGLOBIN 13.2 g/dl (14.0-17.9); LYMPHOCYTES # (AUTO) 1.3 X10'3 (1.1-4.8); LYMPHOCYTES % (AUTO) 21.1 % (21-51); MEAN CORPUSCULAR HEMOGLOBIN 29.1 PG (27.0-31.0); MEAN CORPUSCULAR HGB CONC 34.1 g/dL (33.0-36.5); MEAN CORPUSCULAR VOLUME 85.3 FL (78-98); MEAN PLATELET VOLUME 6.1 FL (7.4-10.4); MONOCYTES # (AUTO) 0.8 X10'3 (0-0.9); MONOCYTES % (AUTO) 13.5 % (2-12); NEUTROPHILS # (AUTO) 3.8 X10'3 (1.8-7.7); NEUTROPHILS % (AUTO) 61.7 % (42-75); PLATELET COUNT 238 X10'3 (140-440); RED BLOOD COUNT 4.53 X10'6 (4.70-6.10); WHITE BLOOD COUNT 6.2 X10'3 (4.5-11.0)
[2021-06-26] MEDS: normal saline 1000ml 1,000 ML IV SCH ×2 (07:05→08:01)
[2021-06-26] MEDS: docusate sod 100mg capsule PO SCH ×2 (07:14→07:52)
[2021-06-26 07:19] LABS: ALANINE AMINOTRANSFERASE 24 U/L (12-78); ALBUMIN 3.2 G/DL (3.4-5.0); ALBUMIN/GLOBULIN RATIO 1.3 (1.1-1.5); ALKALINE PHOSPHATASE 37 IU/L (46-116); ANION GAP 11 (8-16); ASPARTATE AMINO TRANSFERASE 21 U/L (10-37); BILIRUBIN,TOTAL 0.3 MG/DL (0.1-1.0); BLOOD UREA NITROGEN 12 MG/DL (7-18); BUN/CREATININE RATIO 18.2 (5.4-32.0); CALCIUM 8.6 MG/DL (8.5-10.1); CHLORIDE 107 MMOL/L (99-107); CREATININE 0.66 MG/DL (0.60-1.10); GLUCOSE 97 MG/DL (70-104); MAGNESIUM 2.1 MG/DL (1.5-2.4); POTASSIUM 3.6 MMOL/L (3.5-5.1); SODIUM 142 MMOL/L (135-145); TOTAL CARBON DIOXIDE 23.9 MMOL/L (24-32); TOTAL PROTEIN 5.7 G/DL (6.4-8.2); eGFR > 90 ML/MIN
[2021-06-26] MEDS: pantoprazole 40mg Tablet.DR PO SCH (07:54)
[2021-06-26] MEDS: FLUoxetine 20mg capsule PO SCH ×2 (07:54→20:13)
[2021-06-26] MEDS: lisinopril 20mg tablet PO SCH (07:55)
[2021-06-26] MEDS: ciprofloxacin lact 400MG/200ML 200 ML IV SCH ×2 (07:56→20:13)
[2021-06-26 08:00] VITALS: BP 137/94
[2021-06-26] MEDS: K and/or MAG REPLACEMENT MC SCH ×2 (08:01→20:00)
[2021-06-26] MEDS: metroNIDAZOLE-Flagyl 750mg/NS 150 ML IV SCH ×2 (08:55→16:40)
[2021-06-26] MEDS: HYDROcodone/acetaminophen 5mg/325mg tablet PO PRN ×2 (10:08→16:42)
[2021-06-26 11:00] VITALS: BP 120/87
--- NOTE | 2021-06-26 18:19 | NUR ---
Problems reprioritized. Patient report given, questions answered & plan of care reviewed with LISA Buchanan.
[2021-06-26 20:00] VITALS: BP 133/82
[2021-06-26] MEDS: QUEtiapine 25mg tablet PO SCH (20:13)
[2021-06-26] MEDS: enoxaparin 40mg/0.4ml syringe SQ SCH (20:14)
[2021-06-27] VITALS: BP 122/79
[2021-06-27] MEDS: HYDROcodone/acetaminophen 10/325mg tab PO PRN ×2 (02:23→11:21)
[2021-06-27] MEDS: metroNIDAZOLE-Flagyl 750mg/NS 150 ML IV SCH ×3 (03:04→15:36)
[2021-06-27 06:38] LABS: BASOPHILS # (AUTO) 0.1 X10'3 (0-0.2); BASOPHILS % (AUTO) 0.8 % (0-1); EOSINOPHILS # (AUTO) 0.2 X10'3 (0-0.9); EOSINOPHILS % (AUTO) 3.7 % (0-6); HEMATOCRIT 40.4 % (42.0-52.0); HEMOGLOBIN 13.5 g/dl (14.0-17.9); LYMPHOCYTES # (AUTO) 1.9 X10'3 (1.1-4.8); LYMPHOCYTES % (AUTO) 29.8 % (21-51); MEAN CORPUSCULAR HEMOGLOBIN 28.5 PG (27.0-31.0); MEAN CORPUSCULAR HGB CONC 33.5 g/dL (33.0-36.5); MEAN CORPUSCULAR VOLUME 85.1 FL (78-98); MEAN PLATELET VOLUME 6.2 FL (7.4-10.4); MONOCYTES # (AUTO) 0.8 X10'3 (0-0.9); MONOCYTES % (AUTO) 13.2 % (2-12); NEUTROPHILS # (AUTO) 3.3 X10'3 (1.8-7.7); NEUTROPHILS % (AUTO) 52.5 % (42-75); PLATELET COUNT 246 X10'3 (140-440); RED BLOOD COUNT 4.75 X10'6 (4.70-6.10); RED CELL DISTRIBUTION WIDTH 15.2 % (11.5-14.5); WHITE BLOOD COUNT 6.3 X10'3 (4.5-11.0)
--- NOTE | 2021-06-27 06:46 | NUR ---
Report given to LISA Ladd, for continuation of care. Patient remains afebrile and stable
[2021-06-27 06:57] LABS: ALANINE AMINOTRANSFERASE 25 U/L (12-78); ALBUMIN 3.3 G/DL (3.4-5.0); ALBUMIN/GLOBULIN RATIO 1.2 (1.1-1.5); ALKALINE PHOSPHATASE 36 IU/L (46-116); ANION GAP 10 (8-16); ASPARTATE AMINO TRANSFERASE 25 U/L (10-37); BILIRUBIN,TOTAL 0.2 MG/DL (0.1-1.0); BLOOD UREA NITROGEN 15 MG/DL (7-18); BUN/CREATININE RATIO 23.1 (5.4-32.0); CALCIUM 8.6 MG/DL (8.5-10.1); CHLORIDE 105 MMOL/L (99-107); CREATININE 0.65 MG/DL (0.60-1.10); GLUCOSE 102 MG/DL (70-104); POTASSIUM 3.9 MMOL/L (3.5-5.1); SODIUM 139 MMOL/L (135-145); TOTAL CARBON DIOXIDE 24.5 MMOL/L (24-32); eGFR > 90 ML/MIN
[2021-06-27 07:00] VITALS: BP 137/91
[2021-06-27] MEDS: pantoprazole 40mg Tablet.DR PO SCH (07:14)
[2021-06-27] MEDS: ciprofloxacin lact 400MG/200ML 200 ML IV SCH (07:14)
[2021-06-27 07:15] VITALS: BP_SYST 137
[2021-06-27] MEDS: HYDROcodone/acetaminophen 5mg/325mg tablet PO PRN ×2 (07:15→15:04)
[2021-06-27] MEDS: lisinopril 20mg tablet PO SCH (07:15)
[2021-06-27] MEDS: FLUoxetine 20mg capsule PO SCH (07:15)
[2021-06-27] MEDS: docusate sod 100mg capsule PO SCH (08:00)
[2021-06-27] MEDS: K and/or MAG REPLACEMENT MC SCH (08:00)
[2021-06-27] MEDS ORDERED: METR-159 PO (13:37)
[2021-06-27] MEDS ORDERED: CIPR-202 PO (13:37)
--- NOTE | 2021-06-27 14:51 | NUR ---
Patient discharged, paper work completed. Education completed with verbal acknowledgement completed. IV discontinued. Patient waiting on ride.
--- NOTE | 2021-06-27 16:00 | NUR ---
VS stable, discharge instructions and care given, IV discontinued and dressing applied per resource nurse Elizabeth. Pt verbalized to this nurse as well that he understood discharge. Pt was escorted by staff to [facility] outside.
== END 2021-06-27 16:04 | disposition home or self-care (01) | DRG 720 ==
LOC: ER 12:22 → ED HOLD 15:09 → SUR 3N 18:40
PROVIDERS: ADMIT Family Medicine; ATTEND Family Medicine
DX: A41.9 Sepsis, unspecified organism (principal); N17.0 Acute kidney failure with tubular necrosis; A09 Infectious gastroenteritis and colitis, unspecified; F32.A Depression, unspecified; I10 Essential (primary) hypertension; F41.1 Generalized anxiety disorder; E86.0 Dehydration; F12.90 Cannabis use, unspecified, uncomplicated; G89.29 Other chronic pain; J44.9 Chronic obstructive pulmonary disease, unspecified; K21.9 Gastro-esophageal reflux disease without esophagitis; Z96.643 Presence of artificial hip joint, bilateral; M16.0 Bilateral primary osteoarthritis of hip; Z80.1 Family history of malignant neoplasm of trachea, bronchus and lung; Z82.5 Family history of asthma and other chronic lower respiratory diseases; Z79.899 Other long term (current) drug therapy; Z79.82 Long term (current) use of aspirin
CPT/HCPCS: 36415; 71045; 74176; 80053; 80320; 83605; 83690; 83735; 84145; 85007; 85025; 87040; 87045; 87046; 87077; 87081; 87186; 87324; 87449; 96360; 96361; 96372; 99285; G0378; J0744; J0780; J1630; J1650; J2405; J3360; J3490; J7030

== ENCOUNTER 2021-07-12 07:45 | Inpatient (IN) | payer MEDICAID ==
[~2021-07-12] VITALS: Ht 162.6 cm; Wt 83.6 kg
[~2021-07-12 07:45] MED LIST changes: -ALBU2.5V10 NEB; -LEVO750T46 PO; -METH-797 PO
[2021-07-12] MEDS ORDERED: methylPREDNISolone sod succ 125mg/2ml vial IV ONE (08:05)
[2021-07-12] MEDS ORDERED: albuterol 2.5 MG/3 ML nebule CONTNEB PRN (08:05)
[2021-07-12] MEDS ORDERED: albuterol 2.5 MG/3 ML nebule CONTNEB ONE (08:05)
[2021-07-12 08:07] LABS: BASOPHILS # (AUTO) 0.1 X10'3 (0-0.2); BASOPHILS % (AUTO) 0.6 % (0-1); EOSINOPHILS # (AUTO) 0.2 X10'3 (0-0.9); EOSINOPHILS % (AUTO) 2.1 % (0-6); HEMATOCRIT 40.5 % (42.0-52.0); HEMOGLOBIN 13.6 g/dl (14.0-17.9); LYMPHOCYTES # (AUTO) 1.2 X10'3 (1.1-4.8); LYMPHOCYTES % (AUTO) 10.6 % (21-51); MEAN CORPUSCULAR HEMOGLOBIN 28.6 PG (27.0-31.0); MEAN CORPUSCULAR HGB CONC 33.5 g/dL (33.0-36.5); MEAN CORPUSCULAR VOLUME 85.5 FL (78-98); MEAN PLATELET VOLUME 5.8 FL (7.4-10.4); NEUTROPHILS # (AUTO) 8.5 X10'3 (1.8-7.7); NEUTROPHILS % (AUTO) 77.7 % (42-75); PLATELET COUNT 328 X10'3 (140-440); RED BLOOD COUNT 4.74 X10'6 (4.70-6.10); RED CELL DISTRIBUTION WIDTH 16.1 % (11.5-14.5)
--- NOTE | 2021-07-12 08:14 | NUR ---
PAT STARTED ON BIPAP.
[2021-07-12 08:19] LABS: ALANINE AMINOTRANSFERASE 93 U/L (12-78); ALBUMIN 3.6 G/DL (3.4-5.0); ALBUMIN/GLOBULIN RATIO 1.1 (1.1-1.5); ALKALINE PHOSPHATASE 60 IU/L (46-116); ANION GAP 7 (8-16); ASPARTATE AMINO TRANSFERASE 74 U/L (10-37); BILIRUBIN,TOTAL 0.3 MG/DL (0.1-1.0); BLOOD UREA NITROGEN 15 MG/DL (7-18); BUN/CREATININE RATIO 17.6 (5.4-32.0); CHLORIDE 102 MMOL/L (99-107); CREATININE 0.85 MG/DL (0.60-1.10); GLUCOSE 115 MG/DL (70-104); POTASSIUM 4.2 MMOL/L (3.5-5.1); SODIUM 139 MMOL/L (135-145); TOTAL CARBON DIOXIDE 29.9 MMOL/L (24-32); TOTAL PROTEIN 6.8 G/DL (6.4-8.2); eGFR > 90 ML/MIN
[2021-07-12] MEDS ORDERED: HYDROcodone/acetaminophen 5mg/325mg tablet PO ONE (08:30)
[2021-07-12 08:52] LABS: ANISOCYTOSIS 1+; PLATELET ESTIMATE NORMAL; TOTAL CELLS COUNTED 100
[2021-07-12 08:53] LABS: STOMATOCYTES 1+
[2021-07-12] MEDS ORDERED: albuterol 2.5 MG/3 ML nebule NEB ONE (11:35)
[2021-07-12 12:03] LABS: ABG BASE EXCESS 6.9 mmol/L (-2.0-2.0); ABG HCO3 32.1 mmol/L (22.0-26.0); ABG OXYGEN SATURATION 97.3 % (94-97); ABG PCO2 (T) 47.4 mmHg (35.0-48.0); ABG PO2 (T) 91.4 mmHg (75.0-100.0); ALLEN'S TEST POSITIVE; FCOHb 0.2 % (0.0-3.9); FMetHb 0.2 % (0.0-1.5); FO2Hb 96.9 % (94-97); RESPIRATORY RATE 10 b/min; TOTAL HEMOGLOBIN 14.1 G/dl (14.0-18.0)
[2021-07-12] MEDS ORDERED: bisacodyl 10mg suppository rectal RC PRN (13:10)
[2021-07-12] MEDS ORDERED: magnesium 2GM in 50ml NS 50 ML IV PRN (13:10)
[2021-07-12] MEDS ORDERED: diphenhydrAMINE 25mg capsule PO PRN (13:10)
[2021-07-12] MEDS ORDERED: magnesium hydroxide 30ml (MOM) UD suspension PO PRN (13:10)
[2021-07-12] MEDS ORDERED: potassium Cl 20 mEq SR tablet PO PRN ×2 (13:10)
[2021-07-12] MEDS ORDERED: potassium CL 10mEq/100ml bag 100 ML IV PRN (13:10)
[2021-07-12] MEDS ORDERED: acetaminophen 650mg rectal suppository RC PRN (13:10)
[2021-07-12] MEDS ORDERED: mag hydrox/Alum hydrox/simeth 30ml oral suspension PO PRN (13:10)
[2021-07-12] MEDS ORDERED: magnesium Cl slow-release 64mg tablet PO PRN (13:10)
[2021-07-12] MEDS ORDERED: ondansetron/PF 4mg/2ml inj IV PRN (13:10)
[2021-07-12] MEDS ORDERED: morphine 2 MG/ML inj. syringe IV PRN ×2 (13:10)
[2021-07-12] MEDS ORDERED: magnesium 4gm in 100ml NS 100 ML IV PRN (13:10)
[2021-07-12] MEDS: azithromycin 250mg tablet PO SCH (13:10)
[2021-07-12] MEDS ORDERED: acetaminophen 325mg tablet PO PRN ×2 (13:10)
[2021-07-12] MEDS: cefTRIAXone 1g/NS 100ml IVPB 100 ML IV SCH (13:28)
[2021-07-12] MEDS: normal saline 1000ml 1,000 ML IV SCH (13:35)
--- NOTE | 2021-07-12 13:36 | NUR ---
Pt resting comfortably. No apparent distress or needs at this time. On BiPAP /, FiO2 60%
--- NOTE | 2021-07-12 14:03 | NUR ---
attempted to call report, unable to find Yaya GONZALEZ.
[2021-07-12 14:40] VITALS: BP 139/91
[2021-07-12] MEDS: methylPREDNISolone sod succ 125mg/2ml vial IV SCH ×2 (15:23→19:41)
[2021-07-12] MEDS: HYDROcodone/acetaminophen 10/325mg tab PO PRN ×2 (15:28→19:37)
[2021-07-12] MEDS: ipratropium/albuterol 3ml nebule NEB SCH ×3 (15:32→23:34)
[2021-07-12] MEDS: QUEtiapine 25mg tablet PO SCH (19:38)
[2021-07-12] MEDS: docusate sod 100mg capsule PO SCH (19:39)
[2021-07-12] MEDS: heparin, porcine 5000 units/ml vial SQ SCH (19:40)
[2021-07-12] MEDS: FLUoxetine 20mg capsule PO SCH (19:41)
[2021-07-12] MEDS: K and/or MAG REPLACEMENT MC SCH (19:42)
[2021-07-12 22:00] VITALS: BP 119/82
[2021-07-13] MEDS: methylPREDNISolone sod succ 125mg/2ml vial IV SCH ×4 (01:37→19:50)
[2021-07-13] MEDS: HYDROcodone/acetaminophen 5mg/325mg tablet PO PRN (01:38)
[2021-07-13 02:00] VITALS: BP 120/66
[2021-07-13] MEDS: ipratropium/albuterol 3ml nebule NEB SCH ×6 (03:20→23:44)
[2021-07-13] MEDS: ipratropium/albuterol 3ml nebule NEB PRN (05:07)
[2021-07-13 06:27] LABS: BASOPHILS % (AUTO) 0 % (0-1); EOSINOPHILS % (AUTO) 0 % (0-6); HEMATOCRIT 38.4 % (42.0-52.0); HEMOGLOBIN 12.7 g/dl (14.0-17.9); LYMPHOCYTES # (AUTO) 0.5 X10'3 (1.1-4.8); LYMPHOCYTES % (AUTO) 5.2 % (21-51); MEAN CORPUSCULAR HEMOGLOBIN 28.2 PG (27.0-31.0); MEAN CORPUSCULAR VOLUME 85.5 FL (78-98); MEAN PLATELET VOLUME 6.1 FL (7.4-10.4); MONOCYTES # (AUTO) 0.3 X10'3 (0-0.9); MONOCYTES % (AUTO) 2.9 % (2-12); NEUTROPHILS # (AUTO) 9.2 X10'3 (1.8-7.7); NEUTROPHILS % (AUTO) 91.9 % (42-75); PLATELET COUNT 321 X10'3 (140-440)
[2021-07-13 06:30] VITALS: BP 127/77
[2021-07-13 06:36] LABS: ALANINE AMINOTRANSFERASE 80 U/L (12-78); ALBUMIN 3.1 G/DL (3.4-5.0); ALKALINE PHOSPHATASE 53 IU/L (46-116); ANION GAP 8 (8-16); ASPARTATE AMINO TRANSFERASE 37 U/L (10-37); BILIRUBIN,TOTAL 0.3 MG/DL (0.1-1.0); BLOOD UREA NITROGEN 19 MG/DL (7-18); BUN/CREATININE RATIO 22.4 (5.4-32.0); CALCIUM 8.8 MG/DL (8.5-10.1); CHLORIDE 104 MMOL/L (99-107); CHOL/HDL RATIO 3.9 (0.00-4.99); CHOLESTEROL 225 MG/DL (0-200); CREATININE 0.85 MG/DL (0.60-1.10); GLUCOSE 178 MG/DL (70-104); HDL CHOLESTEROL 58 MG/DL (35-60); LDL CHOLESTEROL 154 MG/DL (50-100); MAGNESIUM 2.1 MG/DL (1.5-2.4); PHOSPHORUS 4.5 MG/DL (2.3-4.5); SODIUM 141 MMOL/L (135-145); TOTAL CARBON DIOXIDE 28.6 MMOL/L (24-32); TOTAL PROTEIN 6.1 G/DL (6.4-8.2); TRIGLYCERIDES 78 MG/DL (20-135); eGFR > 90 ML/MIN
[2021-07-13] MEDS: K and/or MAG REPLACEMENT MC SCH ×2 (08:00→19:08)
[2021-07-13] MEDS: aspirin 81mg, enteric-coated 1 TAB TABLET.DR PO SCH (08:09)
[2021-07-13] MEDS: azithromycin 250mg tablet PO SCH (08:10)
[2021-07-13] MEDS: pantoprazole 40mg Tablet.DR PO SCH (08:10)
[2021-07-13] MEDS: docusate sod 100mg capsule PO SCH ×2 (08:10→19:36)
[2021-07-13] MEDS: cefTRIAXone 1g/NS 100ml IVPB 100 ML IV SCH (08:11)
[2021-07-13] MEDS: heparin, porcine 5000 units/ml vial SQ SCH ×2 (08:20→19:49)
[2021-07-13] MEDS: lisinopril 20mg tablet PO SCH (08:33)
[2021-07-13] MEDS: HYDROcodone/acetaminophen 10/325mg tab PO PRN ×4 (08:34→19:49)
[2021-07-13] MEDS: FLUoxetine 20mg capsule PO SCH ×2 (08:35→19:49)
[2021-07-13] MEDS: normal saline 1000ml 1,000 ML IV SCH (08:47)
[2021-07-13 11:00] VITALS: BP 134/87
[2021-07-13] MEDS ORDERED: iohexol 350MG/ML 100ml bottle IV ONE (11:41)
[2021-07-13 19:00] VITALS: BP 123/79
[2021-07-13] MEDS: QUEtiapine 25mg tablet PO SCH (19:49)
[2021-07-13 22:00] VITALS: BP 115/89
[2021-07-14] MEDS: methylPREDNISolone sod succ 125mg/2ml vial IV SCH ×4 (01:16→20:04)
[2021-07-14 02:00] VITALS: BP 108/79
[2021-07-14] MEDS: HYDROcodone/acetaminophen 10/325mg tab PO PRN ×2 (02:24→09:24)
[2021-07-14] MEDS: ipratropium/albuterol 3ml nebule NEB SCH ×6 (03:14→23:00)
[2021-07-14 05:58] LABS: BASOPHILS % (AUTO) 0 % (0-1); EOSINOPHILS % (AUTO) 0 % (0-6); HEMATOCRIT 37.2 % (42.0-52.0); HEMOGLOBIN 12.2 g/dl (14.0-17.9); LYMPHOCYTES # (AUTO) 0.4 X10'3 (1.1-4.8); LYMPHOCYTES % (AUTO) 2.8 % (21-51); MEAN CORPUSCULAR HEMOGLOBIN 28.2 PG (27.0-31.0); MEAN CORPUSCULAR HGB CONC 32.8 g/dL (33.0-36.5); MEAN CORPUSCULAR VOLUME 85.9 FL (78-98); MEAN PLATELET VOLUME 6.1 FL (7.4-10.4); MONOCYTES # (AUTO) 0.6 X10'3 (0-0.9); MONOCYTES % (AUTO) 3.8 % (2-12); NEUTROPHILS # (AUTO) 14.7 X10'3 (1.8-7.7); NEUTROPHILS % (AUTO) 93.4 % (42-75); PLATELET COUNT 309 X10'3 (140-440); RED BLOOD COUNT 4.34 X10'6 (4.70-6.10); RED CELL DISTRIBUTION WIDTH 15.8 % (11.5-14.5); WHITE BLOOD COUNT 15.7 X10'3 (4.5-11.0)
[2021-07-14 06:09] LABS: ALANINE AMINOTRANSFERASE 64 U/L (12-78); ALBUMIN 2.8 G/DL (3.4-5.0); ALBUMIN/GLOBULIN RATIO 0.9 (1.1-1.5); ALKALINE PHOSPHATASE 45 IU/L (46-116); ANION GAP 8 (8-16); ASPARTATE AMINO TRANSFERASE 22 U/L (10-37); BILIRUBIN,TOTAL 0.2 MG/DL (0.1-1.0); BLOOD UREA NITROGEN 25 MG/DL (7-18); BUN/CREATININE RATIO 35.7 (5.4-32.0); CALCIUM 8.6 MG/DL (8.5-10.1); CHLORIDE 102 MMOL/L (99-107); GLUCOSE 151 MG/DL (70-104); MAGNESIUM 2.2 MG/DL (1.5-2.4); PHOSPHORUS 4.5 MG/DL (2.3-4.5); POTASSIUM 4.2 MMOL/L (3.5-5.1); SODIUM 139 MMOL/L (135-145); TOTAL CARBON DIOXIDE 28.7 MMOL/L (24-32); TOTAL PROTEIN 5.8 G/DL (6.4-8.2); eGFR > 90 ML/MIN
[2021-07-14 06:30] VITALS: BP 92/57
[2021-07-14 08:56] VITALS: BP 129/92
[2021-07-14] MEDS: pantoprazole 40mg Tablet.DR PO SCH (09:04)
[2021-07-14] MEDS: azithromycin 250mg tablet PO SCH (09:04)
[2021-07-14] MEDS: docusate sod 100mg capsule PO SCH ×2 (09:05→20:00)
[2021-07-14] MEDS: FLUoxetine 20mg capsule PO SCH ×2 (09:05→20:04)
[2021-07-14] MEDS: aspirin 81mg, enteric-coated 1 TAB TABLET.DR PO SCH (09:05)
[2021-07-14] MEDS: lisinopril 20mg tablet PO SCH (09:05)
[2021-07-14] MEDS: cefTRIAXone 1g/NS 100ml IVPB 100 ML IV SCH (09:06)
[2021-07-14] MEDS: heparin, porcine 5000 units/ml vial SQ SCH ×2 (09:06→20:03)
[2021-07-14] MEDS: normal saline 1000ml 1,000 ML IV SCH (09:16)
[2021-07-14 11:00] VITALS: BP 123/85
[2021-07-14] MEDS: HYDROcodone/acetaminophen 5mg/325mg tablet PO PRN (14:34)
[2021-07-14 18:00] VITALS: BP 141/94
[2021-07-14] MEDS: lactose-reduced food (Ensure High Protein) 237ml bottle PO SCH (18:00)
--- NOTE | 2021-07-14 18:07 | NUR ---
Pt a/ox4, VSS, On 6L NC or BIPAP, patient switches between the two independently. Fine wheezes posteriorly. NS @50ml/hr. PRN neb treatments and solumedrol appear to be helping patient. (per patient). Chronic back pain 6/10 pain, 1 tab norco given q 6 hours. Decreased appetite, pt does not like the food hear, pt has been ordering outside food and having it delivered for dinner. Good urine output. Pt drinking sodas brought in by a friend. Pt educated regarding heart healthy diet/low sodium and monitoring fluid intake. Pt admitted he loves "salt". 1 BM this shift. Pt ambulated to BR, ambulates fine, pt becomes SOB with exertion. safety maintained.
[2021-07-14] MEDS: K and/or MAG REPLACEMENT MC SCH (20:00)
[2021-07-14] MEDS: QUEtiapine 25mg tablet PO SCH (20:04)
[2021-07-14 22:00] VITALS: BP 119/82
[2021-07-15 02:00] VITALS: BP 130/89
[2021-07-15] MEDS: methylPREDNISolone sod succ 125mg/2ml vial IV SCH ×4 (02:00→20:26)
[2021-07-15] MEDS: normal saline 1000ml 1,000 ML IV SCH ×2 (02:00→17:31)
[2021-07-15] MEDS: ipratropium/albuterol 3ml nebule NEB SCH ×6 (02:30→23:40)
[2021-07-15] MEDS: HYDROcodone/acetaminophen 10/325mg tab PO PRN ×4 (02:32→20:27)
--- NOTE | 2021-07-15 06:20 | NUR ---
Patient in room PCU 3015. I have received report from LISA Lai and had the opportunity to ask questions and assume patient care.
[2021-07-15 06:30] VITALS: BP 113/76
[2021-07-15 06:32] LABS: BASOPHILS % (AUTO) 0 % (0-1); EOSINOPHILS % (AUTO) 0 % (0-6); HEMATOCRIT 37.2 % (42.0-52.0); HEMOGLOBIN 12.4 g/dl (14.0-17.9); LYMPHOCYTES # (AUTO) 0.7 X10'3 (1.1-4.8); LYMPHOCYTES % (AUTO) 4.5 % (21-51); MEAN CORPUSCULAR HEMOGLOBIN 28.7 PG (27.0-31.0); MEAN CORPUSCULAR HGB CONC 33.3 g/dL (33.0-36.5); MEAN CORPUSCULAR VOLUME 86.2 FL (78-98); MEAN PLATELET VOLUME 5.9 FL (7.4-10.4); MONOCYTES # (AUTO) 0.4 X10'3 (0-0.9); NEUTROPHILS # (AUTO) 13.6 X10'3 (1.8-7.7); NEUTROPHILS % (AUTO) 92.5 % (42-75); PLATELET COUNT 303 X10'3 (140-440); RED BLOOD COUNT 4.31 X10'6 (4.70-6.10); RED CELL DISTRIBUTION WIDTH 16.1 % (11.5-14.5); WHITE BLOOD COUNT 14.7 X10'3 (4.5-11.0)
[2021-07-15 07:21] LABS: ALANINE AMINOTRANSFERASE 54 U/L (12-78); ALBUMIN 2.9 G/DL (3.4-5.0); ALKALINE PHOSPHATASE 45 IU/L (46-116); ANION GAP 7 (8-16); ASPARTATE AMINO TRANSFERASE 20 U/L (10-37); BILIRUBIN,TOTAL 0.2 MG/DL (0.1-1.0); BLOOD UREA NITROGEN 26 MG/DL (7-18); BUN/CREATININE RATIO 37.1 (5.4-32.0); CALCIUM 8.8 MG/DL (8.5-10.1); CHLORIDE 105 MMOL/L (99-107); GLUCOSE 136 MG/DL (70-104); MAGNESIUM 2.2 MG/DL (1.5-2.4); PHOSPHORUS 4.3 MG/DL (2.3-4.5); POTASSIUM 4.2 MMOL/L (3.5-5.1); SODIUM 141 MMOL/L (135-145); TOTAL CARBON DIOXIDE 29.5 MMOL/L (24-32); TOTAL PROTEIN 5.8 G/DL (6.4-8.2); eGFR > 90 ML/MIN
[2021-07-15] MEDS: lactose-reduced food (Ensure High Protein) 237ml bottle PO SCH ×3 (07:57→17:08)
[2021-07-15] MEDS: K and/or MAG REPLACEMENT MC SCH ×2 (07:57→20:00)
[2021-07-15] MEDS: docusate sod 100mg capsule PO SCH (08:00)
[2021-07-15] MEDS: cefTRIAXone 1g/NS 100ml IVPB 100 ML IV SCH (08:54)
[2021-07-15] MEDS: azithromycin 250mg tablet PO SCH (08:56)
[2021-07-15] MEDS: FLUoxetine 20mg capsule PO SCH ×2 (08:56→20:26)
[2021-07-15] MEDS: pantoprazole 40mg Tablet.DR PO SCH (08:56)
[2021-07-15] MEDS: aspirin 81mg, enteric-coated 1 TAB TABLET.DR PO SCH (08:56)
[2021-07-15] MEDS: lisinopril 20mg tablet PO SCH (08:56)
[2021-07-15] MEDS: heparin, porcine 5000 units/ml vial SQ SCH ×2 (08:56→20:28)
[2021-07-15] MEDS ORDERED: docusate sod 100mg capsule PO PRN (09:00)
[2021-07-15 10:10] LABS: ABG BASE EXCESS 2.7 mmol/L (-2.0-2.0); ABG HCO3 28.1 mmol/L (22.0-26.0); ABG OXYGEN SATURATION 96.5 % (94-97); ABG PCO2 (T) 46.1 mmHg (35.0-48.0); ALLEN'S TEST POS; FCOHb 0.3 % (0.0-3.9); FMetHb 0.3 % (0.0-1.5); FO2Hb 95.9 % (94-97); RESPIRATORY RATE 8 b/min; TOTAL HEMOGLOBIN 13.5 G/dl (14.0-18.0)
[2021-07-15 11:00] VITALS: BP 135/95
[2021-07-15] MEDS: LORazepam 1 MG tablet PO PRN (12:12)
[2021-07-15 15:00] VITALS: BP 146/100
[2021-07-15 18:00] VITALS: BP 135/96
--- NOTE | 2021-07-15 18:30 | NUR ---
Problems reprioritized. Patient report given, questions answered & plan of care reviewed with LISA Lai.
[2021-07-15] MEDS: QUEtiapine 25mg tablet PO SCH (20:26)
[2021-07-15 22:00] VITALS: BP 111/53
[2021-07-16] MEDS: methylPREDNISolone sod succ 125mg/2ml vial IV SCH ×4 (01:42→19:43)
[2021-07-16 02:00] VITALS: BP 111/88
[2021-07-16] MEDS: ipratropium/albuterol 3ml nebule NEB SCH ×6 (03:53→22:57)
[2021-07-16 07:00] VITALS: BP 131/94
[2021-07-16 07:40] LABS: BASOPHILS % (AUTO) 0 % (0-1); EOSINOPHILS % (AUTO) 0 % (0-6); HEMATOCRIT 37.4 % (42.0-52.0); HEMOGLOBIN 12.6 g/dl (14.0-17.9); LYMPHOCYTES # (AUTO) 0.9 X10'3 (1.1-4.8); LYMPHOCYTES % (AUTO) 6.4 % (21-51); MEAN CORPUSCULAR HGB CONC 33.7 g/dL (33.0-36.5); MEAN PLATELET VOLUME 6.2 FL (7.4-10.4); MONOCYTES # (AUTO) 0.5 X10'3 (0-0.9); MONOCYTES % (AUTO) 3.9 % (2-12); NEUTROPHILS # (AUTO) 12.6 X10'3 (1.8-7.7); NEUTROPHILS % (AUTO) 89.7 % (42-75); PLATELET COUNT 283 X10'3 (140-440); RED BLOOD COUNT 4.35 X10'6 (4.70-6.10); RED CELL DISTRIBUTION WIDTH 15.4 % (11.5-14.5)
[2021-07-16] MEDS: K and/or MAG REPLACEMENT MC SCH ×2 (08:00→20:00)
[2021-07-16] MEDS: lactose-reduced food (Ensure High Protein) 237ml bottle PO SCH ×3 (08:00→18:00)
[2021-07-16] MEDS: cefTRIAXone 1g/NS 100ml IVPB 100 ML IV SCH (08:14)
[2021-07-16] MEDS: aspirin 81mg, enteric-coated 1 TAB TABLET.DR PO SCH (08:15)
[2021-07-16] MEDS: azithromycin 250mg tablet PO SCH (08:15)
[2021-07-16] MEDS: heparin, porcine 5000 units/ml vial SQ SCH ×2 (08:15→19:42)
[2021-07-16] MEDS: pantoprazole 40mg Tablet.DR PO SCH (08:15)
[2021-07-16 08:16] LABS: ALANINE AMINOTRANSFERASE 49 U/L (12-78); ALBUMIN 2.9 G/DL (3.4-5.0); ALKALINE PHOSPHATASE 44 IU/L (46-116); ANION GAP 6 (8-16); ASPARTATE AMINO TRANSFERASE 17 U/L (10-37); BILIRUBIN,TOTAL 0.2 MG/DL (0.1-1.0); BLOOD UREA NITROGEN 26 MG/DL (7-18); BUN/CREATININE RATIO 36.1 (5.4-32.0); CALCIUM 8.5 MG/DL (8.5-10.1); CHLORIDE 105 MMOL/L (99-107); CREATININE 0.72 MG/DL (0.60-1.10); GLUCOSE 151 MG/DL (70-104); MAGNESIUM 2.3 MG/DL (1.5-2.4); PHOSPHORUS 3.6 MG/DL (2.3-4.5); POTASSIUM 4.1 MMOL/L (3.5-5.1); SODIUM 140 MMOL/L (135-145); TOTAL CARBON DIOXIDE 28.9 MMOL/L (24-32); TOTAL PROTEIN 5.7 G/DL (6.4-8.2); eGFR > 90 ML/MIN
[2021-07-16] MEDS: FLUoxetine 20mg capsule PO SCH ×2 (08:16→19:42)
[2021-07-16] MEDS: lisinopril 20mg tablet PO SCH (08:16)
[2021-07-16] MEDS: HYDROcodone/acetaminophen 10/325mg tab PO PRN ×3 (08:28→19:42)
--- NOTE | 2021-07-16 10:55 | NUR ---
Initial: Pt presented with worsening SOB with some cough and admit for acute on chronic respiratory failure and COPD exacerbation, currently on BiPAP per EMR. Pt on a heart healthy diet and eating well with 75-100% PO intake throughout LOS meeting estimated nutrient needs. Noted RN ordered an Ensure High Protein TIDWM 07/14 of which pt averaging ~81% PO intake of. Recommend discontinuing ONS as pt meeting estimated nutrient needs with PO intake of meals alone. IF pt with c/o hunger following meals recommend additional protein/food rather than ONS. LBM 07/14, with PRN bowel care available. No nutrition intervention implemented at this time. Will continue to follow. Recommendations: 1) Continue heart healthy diet 2) Discontinue Ensure High Protein TIDWM as pt meeting estimated nutrient needs with meal intake; can send additional protein/food with meals 3) Bowel care PRN 4) Scaled weight this admit; subsequent weekly scaled weights Addendum: 07/16/21 at [address] Amended: Links added.
[2021-07-16 11:00] VITALS: BP 131/95
[2021-07-16 15:00] VITALS: BP 148/100
[2021-07-16] MEDS: ipratropium/albuterol 3ml nebule NEB PRN (15:05)
[2021-07-16] MEDS: normal saline 1000ml 1,000 ML IV SCH ×2 (17:00→19:41)
[2021-07-16 18:00] VITALS: BP 161/90
--- NOTE | 2021-07-16 18:31 | NUR ---
Problems reprioritized. Patient report given, questions answered & plan of care reviewed with Renetta.
--- NOTE | 2021-07-16 19:07 | NUR ---
Patient in room PCU 3015. I have received report from Titus GONZALEZ and had the opportunity to ask questions and assume patient care.
[2021-07-16] MEDS: QUEtiapine 25mg tablet PO SCH (20:01)
[2021-07-16 22:00] VITALS: BP 139/90
[2021-07-17] MEDS: HYDROcodone/acetaminophen 10/325mg tab PO PRN ×5 (00:03→20:54)
[2021-07-17 02:00] VITALS: BP 115/83
[2021-07-17] MEDS: ipratropium/albuterol 3ml nebule NEB SCH ×5 (04:00→19:47)
[2021-07-17 06:14] LABS: ALANINE AMINOTRANSFERASE 43 U/L (12-78); ALBUMIN 2.8 G/DL (3.4-5.0); ALKALINE PHOSPHATASE 41 IU/L (46-116); ANION GAP 7 (8-16); ASPARTATE AMINO TRANSFERASE 18 U/L (10-37); BILIRUBIN,TOTAL 0.2 MG/DL (0.1-1.0); BLOOD UREA NITROGEN 26 MG/DL (7-18); BUN/CREATININE RATIO 32.1 (5.4-32.0); CALCIUM 8.5 MG/DL (8.5-10.1); CHLORIDE 106 MMOL/L (99-107); CREATININE 0.81 MG/DL (0.60-1.10); GLUCOSE 148 MG/DL (70-104); MAGNESIUM 2.2 MG/DL (1.5-2.4); PHOSPHORUS 3.7 MG/DL (2.3-4.5); POTASSIUM 3.8 MMOL/L (3.5-5.1); SODIUM 141 MMOL/L (135-145); TOTAL CARBON DIOXIDE 28.2 MMOL/L (24-32); TOTAL PROTEIN 5.7 G/DL (6.4-8.2); eGFR > 90 ML/MIN
--- NOTE | 2021-07-17 06:20 | NUR ---
Patient in room PCU 3009. I have received report from Renetta and had the opportunity to ask questions and assume patient care.
[2021-07-17 06:23] LABS: BASOPHILS % (AUTO) 0 % (0-1); EOSINOPHILS % (AUTO) 0 % (0-6); HEMATOCRIT 37.3 % (42.0-52.0); HEMOGLOBIN 12.3 g/dl (14.0-17.9); LYMPHOCYTES # (AUTO) 0.8 X10'3 (1.1-4.8); LYMPHOCYTES % (AUTO) 6.1 % (21-51); MEAN CORPUSCULAR HEMOGLOBIN 28.7 PG (27.0-31.0); MEAN CORPUSCULAR HGB CONC 33.1 g/dL (33.0-36.5); MEAN CORPUSCULAR VOLUME 86.8 FL (78-98); MEAN PLATELET VOLUME 6.4 FL (7.4-10.4); MONOCYTES # (AUTO) 0.7 X10'3 (0-0.9); NEUTROPHILS # (AUTO) 11.9 X10'3 (1.8-7.7); NEUTROPHILS % (AUTO) 88.9 % (42-75); PLATELET COUNT 266 X10'3 (140-440); RED CELL DISTRIBUTION WIDTH 15.6 % (11.5-14.5); WHITE BLOOD COUNT 13.4 X10'3 (4.5-11.0)
--- NOTE | 2021-07-17 06:48 | NUR ---
Problems reprioritized. Patient report given, questions answered & plan of care reviewed with Titus GONZALEZ.
[2021-07-17 07:00] VITALS: BP 138/98
[2021-07-17] MEDS: lactose-reduced food (Ensure High Protein) 237ml bottle PO SCH ×3 (08:00→18:00)
[2021-07-17] MEDS: K and/or MAG REPLACEMENT MC SCH ×2 (08:00→20:00)
[2021-07-17] MEDS: cefTRIAXone 1g/NS 100ml IVPB 100 ML IV SCH (08:47)
[2021-07-17] MEDS: methylPREDNISolone sod succ 125mg/2ml vial IV SCH ×2 (08:49→20:41)
[2021-07-17] MEDS: heparin, porcine 5000 units/ml vial SQ SCH ×2 (08:50→20:55)
[2021-07-17] MEDS: pantoprazole 40mg Tablet.DR PO SCH (08:52)
[2021-07-17] MEDS: aspirin 81mg, enteric-coated 1 TAB TABLET.DR PO SCH (08:52)
[2021-07-17] MEDS: azithromycin 250mg tablet PO SCH (08:52)
[2021-07-17] MEDS: FLUoxetine 20mg capsule PO SCH ×2 (08:52→20:42)
[2021-07-17] MEDS: lisinopril 20mg tablet PO SCH (08:53)
[2021-07-17 09:21] LABS: TOTAL CELLS COUNTED 100
[2021-07-17 09:23] LABS: PLATELET ESTIMATE NORMAL; TEAR DROP CELLS FEW
[2021-07-17 11:00] VITALS: BP 141/90
[2021-07-17 15:00] VITALS: BP 145/94
[2021-07-17 18:00] VITALS: BP 121/86
--- NOTE | 2021-07-17 18:30 | NUR ---
Patient in room PCU 3015. I have received report from Titus GONZALEZ and had the opportunity to ask questions and assume patient care.
--- NOTE | 2021-07-17 18:31 | NUR ---
Problems reprioritized. Patient report given, questions answered & plan of care reviewed with Loretta.
--- NOTE | 2021-07-17 19:02 | NUR ---
When I first introduced myself to this patient , he was very upset and angry.He asked me to look at his dinner and to tell him if I would eat something like that. It is chicken dumpling and I assured him that if I was in the hospital and that was my dinner, then yes, I would eat it. Pt. became even more angry stating that it was disgusting and to take it away. I offered to order him something else and he told me to "not bother" . I offered him a sandwich to which he said "dont bother". I have faxed down to the kitchen for a different tray and will offer it to him when it arrives.
--- NOTE | 2021-07-17 19:15 | NUR ---
New tray came up, but patient did not want it. Offered to help him call out for food, but patient was not interested at this time.
[2021-07-17] MEDS: QUEtiapine 25mg tablet PO SCH (20:42)
[2021-07-17] MEDS: LORazepam 1 MG tablet PO PRN (20:54)
[2021-07-17] MEDS: normal saline 1000ml 1,000 ML IV SCH (21:13)
[2021-07-17 22:00] VITALS: BP 127/93
[2021-07-18] MEDS: ipratropium/albuterol 3ml nebule NEB SCH ×7 (00:06→23:29)
[2021-07-18] MEDS: HYDROcodone/acetaminophen 10/325mg tab PO PRN ×4 (01:52→20:46)
[2021-07-18 02:00] VITALS: BP 134/91
[2021-07-18 06:00] VITALS: BP 145/94
--- NOTE | 2021-07-18 06:55 | NUR ---
Problems reprioritized. Patient report given, questions answered & plan of care reviewed with Keyon GONZALEZ and Trinity.
[2021-07-18] MEDS: K and/or MAG REPLACEMENT MC SCH ×2 (07:58→19:48)
[2021-07-18] MEDS: lactose-reduced food (Ensure High Protein) 237ml bottle PO SCH ×3 (07:59→18:00)
[2021-07-18] MEDS: heparin, porcine 5000 units/ml vial SQ SCH ×2 (08:02→20:47)
[2021-07-18] MEDS: cefTRIAXone 1g/NS 100ml IVPB 100 ML IV SCH (08:02)
[2021-07-18] MEDS: methylPREDNISolone sod succ 125mg/2ml vial IV SCH (08:05)
[2021-07-18] MEDS: azithromycin 250mg tablet PO SCH (08:07)
[2021-07-18] MEDS: lisinopril 20mg tablet PO SCH (08:07)
[2021-07-18] MEDS: FLUoxetine 20mg capsule PO SCH ×2 (08:07→20:46)
[2021-07-18] MEDS: aspirin 81mg, enteric-coated 1 TAB TABLET.DR PO SCH (08:08)
[2021-07-18] MEDS: pantoprazole 40mg Tablet.DR PO SCH (08:08)
[2021-07-18] MEDS: LORazepam 1 MG tablet PO PRN ×2 (08:08→20:46)
[2021-07-18 11:00] VITALS: BP 150/107
[2021-07-18 15:00] VITALS: BP 144/94
[2021-07-18] MEDS: normal saline 1000ml 1,000 ML IV SCH (15:39)
[2021-07-18 18:00] VITALS: BP 167/110
--- NOTE | 2021-07-18 18:30 | NUR ---
Patient in room PCU 3015. I have received report from Ping Brown RN and Velma RN and had the opportunity to ask questions and assume patient care.
[2021-07-18] MEDS ORDERED: methylPREDNISolone sod succ 125mg/2ml vial IV SCH (20:00)
[2021-07-18] MEDS: QUEtiapine 25mg tablet PO SCH (20:46)
[2021-07-18 22:00] VITALS: BP 136/88
[2021-07-19] MEDS: HYDROcodone/acetaminophen 10/325mg tab PO PRN ×2 (01:37→08:00)
[2021-07-19] MEDS: ipratropium/albuterol 3ml nebule NEB SCH ×3 (03:37→10:53)
[2021-07-19 06:00] VITALS: BP 140/90
--- NOTE | 2021-07-19 06:40 | NUR ---
Problems reprioritized. Patient report given, questions answered & plan of care reviewed with Ping Brown RN and Luana GONZALEZ.
[2021-07-19 07:03] LABS: BASOPHILS % (AUTO) 0.1 % (0-1); EOSINOPHILS % (AUTO) 0 % (0-6); HEMOGLOBIN 12.6 g/dl (14.0-17.9); LYMPHOCYTES # (AUTO) 0.9 X10'3 (1.1-4.8); LYMPHOCYTES % (AUTO) 6.4 % (21-51); MEAN CORPUSCULAR HEMOGLOBIN 28.5 PG (27.0-31.0); MEAN CORPUSCULAR HGB CONC 33.2 g/dL (33.0-36.5); MEAN CORPUSCULAR VOLUME 85.9 FL (78-98); MEAN PLATELET VOLUME 6.3 FL (7.4-10.4); MONOCYTES # (AUTO) 0.7 X10'3 (0-0.9); NEUTROPHILS # (AUTO) 12.7 X10'3 (1.8-7.7); NEUTROPHILS % (AUTO) 88.5 % (42-75); PLATELET COUNT 278 X10'3 (140-440); RED BLOOD COUNT 4.42 X10'6 (4.70-6.10); RED CELL DISTRIBUTION WIDTH 15.8 % (11.5-14.5); WHITE BLOOD COUNT 14.3 X10'3 (4.5-11.0)
[2021-07-19 07:37] LABS: ALANINE AMINOTRANSFERASE 41 U/L (12-78); ALBUMIN 2.9 G/DL (3.4-5.0); ALKALINE PHOSPHATASE 38 IU/L (46-116); ANION GAP 9 (8-16); ASPARTATE AMINO TRANSFERASE 17 U/L (10-37); BILIRUBIN,TOTAL 0.3 MG/DL (0.1-1.0); BLOOD UREA NITROGEN 29 MG/DL (7-18); BUN/CREATININE RATIO 37.2 (5.4-32.0); CALCIUM 8.7 MG/DL (8.5-10.1); CHLORIDE 105 MMOL/L (99-107); CREATININE 0.78 MG/DL (0.60-1.10); GLUCOSE 124 MG/DL (70-104); MAGNESIUM 2.4 MG/DL (1.5-2.4); PHOSPHORUS 4.7 MG/DL (2.3-4.5); POTASSIUM 4.3 MMOL/L (3.5-5.1); SODIUM 143 MMOL/L (135-145); TOTAL PROTEIN 5.9 G/DL (6.4-8.2); eGFR > 90 ML/MIN
[2021-07-19] MEDS: LORazepam 1 MG tablet PO PRN (07:57)
[2021-07-19] MEDS: aspirin 81mg, enteric-coated 1 TAB TABLET.DR PO SCH (07:57)
[2021-07-19] MEDS: pantoprazole 40mg Tablet.DR PO SCH (07:57)
[2021-07-19] MEDS: FLUoxetine 20mg capsule PO SCH (08:00)
[2021-07-19] MEDS ORDERED: predniSONE 20 mg tablet PO SCH (08:00)
[2021-07-19] MEDS: K and/or MAG REPLACEMENT MC SCH (08:00)
[2021-07-19] MEDS: lisinopril 20mg tablet PO SCH (08:08)
[2021-07-19] MEDS: heparin, porcine 5000 units/ml vial SQ SCH (08:08)
[2021-07-19] MEDS: cefTRIAXone 1g/NS 100ml IVPB 100 ML IV SCH (08:12)
[2021-07-19 08:15] LABS: PLATELET ESTIMATE NORMAL; TOTAL CELLS COUNTED 100
[2021-07-19] MEDS: lactose-reduced food (Ensure High Protein) 237ml bottle PO SCH ×2 (08:30→13:58)
--- NOTE | 2021-07-19 08:30 | NUR ---
This RN called Pharmacy to verify am med pass as pt was due to get both IV solu-medrol and PO prednisone steroids. Pharmacist said to only give PO prednisone and they will DC iv solu-medrol
[2021-07-19 11:00] VITALS: BP 142/100
[2021-07-19] MEDS ORDERED: CEFD300C3 PO (12:47)
[2021-07-19] MEDS ORDERED: BUDE10.22 INH (12:47)
[2021-07-19] MEDS ORDERED: PRED10TA23 PO (12:47)
[2021-07-19] MEDS ORDERED: LORA-269 PO (12:47)
[2021-07-19] MEDS ORDERED: ALBU8.5H17 INH (12:47)
--- NOTE | 2021-07-19 14:43 | NUR ---
per orders, this RN was trying to discharge pt and he said "I can't go home without oxygen". This RN told pt that when he calls his caregiver to come pick him up to make sure she brings his oxygen. Pt states "she has 3 kids and cannot bring oxygen too." Pt also said, "I will be fine, just let me sign the papers and I will make it home without oxygen if you aren't going to give me any. I am just going to be back here in a couple weeks anyway" Pt proceeded to call caregiver while this RN was in the room and just said "you can come get me now" and he never mentioned bringing the oxygen. This RN expressed concern about the pt leaving without any supplemental O2 as he can not even walk to the bathroom and back without getting very SOB. This RN discussed with charge nurse and Case management and O2 was arranged to be delivered to the hospital by [employer] (his primary O2 delivery). They stated they will be here in an hour. let pt know.
--- NOTE | 2021-07-19 15:50 | NUR ---
per orders pt discharged home. Pt refused to wait for oxygen to arrive and said he needed to go because his ride was already here. IV removed. Pt left with all belongings.
== END 2021-07-19 15:30 | disposition home health service (06) | DRG 140 ==
LOC: ER 07:45 → ED HOLD 13:09 → UNDOADMIN 13:09 → ED HOLD 13:14 → PCU 3S 14:35
PROVIDERS: ADMIT Family Medicine; ATTEND Family Medicine
PROC: 5A09357 Assistance with Respiratory Ventilation, Less than 24 Consecutive Hours, Continuous Positive Airway Pressure (ICD-10-PCS; principal; 2021-07-12)
PROC: 5A09357 Assistance with Respiratory Ventilation, Less than 24 Consecutive Hours, Continuous Positive Airway Pressure (ICD-10-PCS; 2021-07-13)
PROC: B32T1ZZ Computerized Tomography (CT Scan) of Left Pulmonary Artery using Low Osmolar Contrast (ICD-10-PCS; 2021-07-13)
PROC: B3201ZZ Computerized Tomography (CT Scan) of Thoracic Aorta using Low Osmolar Contrast (ICD-10-PCS; 2021-07-13)
PROC: B32S1ZZ Computerized Tomography (CT Scan) of Right Pulmonary Artery using Low Osmolar Contrast (ICD-10-PCS; 2021-07-13)
PROC: 5A09457 Assistance with Respiratory Ventilation, 24-96 Consecutive Hours, Continuous Positive Airway Pressure (ICD-10-PCS; 2021-07-14)
PROC: 5A09357 Assistance with Respiratory Ventilation, Less than 24 Consecutive Hours, Continuous Positive Airway Pressure (ICD-10-PCS; 2021-07-17)
PROC: 5A09357 Assistance with Respiratory Ventilation, Less than 24 Consecutive Hours, Continuous Positive Airway Pressure (ICD-10-PCS; 2021-07-18)
PROC: 5A09357 Assistance with Respiratory Ventilation, Less than 24 Consecutive Hours, Continuous Positive Airway Pressure (ICD-10-PCS; 2021-07-19)
DX: J44.1 Chronic obstructive pulmonary disease with (acute) exacerbation (principal); J96.20 Acute and chronic respiratory failure, unspecified whether with hypoxia or hypercapnia; F32.A Depression, unspecified; F41.9 Anxiety disorder, unspecified; G89.4 Chronic pain syndrome; F12.90 Cannabis use, unspecified, uncomplicated; Z96.643 Presence of artificial hip joint, bilateral; I10 Essential (primary) hypertension; K21.9 Gastro-esophageal reflux disease without esophagitis; Z79.899 Other long term (current) drug therapy; Z80.1 Family history of malignant neoplasm of trachea, bronchus and lung; Z82.5 Family history of asthma and other chronic lower respiratory diseases
CPT/HCPCS: 36415; 36600; 71045; 71275; 80053; 80061; 82803; 82948; 83036; 83605; 83735; 83880; 84100; 85007; 85018; 85025; 87040; 87081; 93005; 93308; 94640; 94660; 94667; 94668; 94760; 97116; 97161; 97530; 99285; A7015; G0378; J0696; J1644; J2930; J7030; J7512; Q9967

== ENCOUNTER 2021-09-05 04:59 | Inpatient (IN) | payer MEDICAID ==
[~2021-09-05] VITALS: Ht 162.6 cm; Wt 83.0 kg
[~2021-09-05 04:59] MED LIST changes: +ALBU8.5H17 INH; +BUDE10.22 INH; +LORA-269 PO
[2021-09-05] MEDS ORDERED: acetaminophen 325mg tablet PO ONE (05:35)
[2021-09-05 05:40] LABS: BASOPHILS % (AUTO) 0.3 % (0-1); EOSINOPHILS # (AUTO) 0.1 X10'3 (0-0.9); EOSINOPHILS % (AUTO) 0.6 % (0-6); HEMATOCRIT 39.2 % (42.0-52.0); HEMOGLOBIN 12.8 g/dl (14.0-17.9); LYMPHOCYTES # (AUTO) 1.3 X10'3 (1.1-4.8); LYMPHOCYTES % (AUTO) 8.6 % (21-51); MEAN CORPUSCULAR HEMOGLOBIN 28.2 PG (27.0-31.0); MEAN CORPUSCULAR HGB CONC 32.7 g/dL (33.0-36.5); MEAN CORPUSCULAR VOLUME 86.3 FL (78-98); MEAN PLATELET VOLUME 5.9 FL (7.4-10.4); MONOCYTES # (AUTO) 0.9 X10'3 (0-0.9); MONOCYTES % (AUTO) 6.1 % (2-12); NEUTROPHILS % (AUTO) 84.4 % (42-75); PLATELET COUNT 282 X10'3 (140-440); RED BLOOD COUNT 4.54 X10'6 (4.70-6.10); RED CELL DISTRIBUTION WIDTH 15.8 % (11.5-14.5); WHITE BLOOD COUNT 15.4 X10'3 (4.5-11.0)
[2021-09-05 05:56] LABS: ALANINE AMINOTRANSFERASE 30 U/L (12-78); ALBUMIN 3.7 G/DL (3.4-5.0); ALBUMIN/GLOBULIN RATIO 1.3 (1.1-1.5); ALKALINE PHOSPHATASE 50 IU/L (46-116); ANION GAP 12 (8-16); ASPARTATE AMINO TRANSFERASE 20 U/L (10-37); BILIRUBIN,TOTAL 0.2 MG/DL (0.1-1.0); BLOOD UREA NITROGEN 24 MG/DL (7-18); BUN/CREATININE RATIO 27.9 (5.4-32.0); CALCIUM 8.8 MG/DL (8.5-10.1); CHLORIDE 103 MMOL/L (99-107); CREATININE 0.86 MG/DL (0.60-1.10); GLUCOSE 101 MG/DL (70-104); POTASSIUM 3.8 MMOL/L (3.5-5.1); SODIUM 140 MMOL/L (135-145); TOTAL CARBON DIOXIDE 25.5 MMOL/L (24-32); TOTAL PROTEIN 6.6 G/DL (6.4-8.2); eGFR > 90 ML/MIN
[2021-09-05] MEDS ORDERED: piperacillin/tazo 3.375gm/50ml 50 ML IV STA (06:12)
[2021-09-05] MEDS ORDERED: normal saline 1000ml 1,000 ML IV ONE (06:15)
[2021-09-05 06:27] LABS: CLARITY,URINE CLEAR (Clear); COLOR,URINE YELLOW (Yellow); GLUCOSE, URINE NEGATIVE (Neg); KETONES,URINE NEGATIVE (Neg); LEUKOCYTE ESTERASE ,URINE NEGATIVE (Neg); NITRITES, URINE NEGATIVE (Neg); OCCULT BLOOD,URINE TRACE-INTACT (Neg); PH,URINE 5.5 (4.8-8.0); PROTEIN,URINE NEGATIVE (Neg); UROBILINOGEN,URINE 0.2 E.U/dL (0.2-1.0)
[2021-09-05 06:31] LABS: UA COLLECTION TYPE URINAL
[2021-09-05 06:40] LABS: BACTERIA,URINE NONE SEEN /HPF (Neg); RBC,URINE NONE SEEN /HPF (0-2); SQUAMOUS EPITHELIAL CELL,UR NONE SEEN /LPF (FEW); WBC,URINE NONE SEEN /HPF (0-4)
[2021-09-05] MEDS ORDERED: HYDROcodone/acetaminophen 10/325mg tab PO ONE (06:40)
--- NOTE | 2021-09-05 09:27 | NUR ---
KAIDEN (B[employer]ER) [phone] PLEASE UPDATE WHEN ABLE
[2021-09-05] MEDS ORDERED: iohexol 350MG/ML 100ml bottle IV ONE (11:00)
[2021-09-05] MEDS ORDERED: acetaminophen 325mg tablet PO PRN (11:30)
[2021-09-05] MEDS ORDERED: magnesium Cl slow-release 64mg tablet PO PRN (11:30)
[2021-09-05] MEDS ORDERED: ipratropium/albuterol 3ml nebule NEB PRN (11:30)
[2021-09-05] MEDS ORDERED: potassium CL 10mEq/100ml bag 100 ML IV PRN (11:30)
[2021-09-05] MEDS ORDERED: albuterol 2.5 MG/3 ML nebule NEB PRN (11:30)
[2021-09-05] MEDS ORDERED: magnesium 4gm in 100ml NS 100 ML IV PRN (11:30)
[2021-09-05] MEDS ORDERED: mag hydrox/Alum hydrox/simeth 30ml oral suspension PO PRN (11:30)
[2021-09-05] MEDS ORDERED: ondansetron/PF 4mg/2ml inj IV PRN (11:30)
[2021-09-05] MEDS ORDERED: magnesium hydroxide 30ml (MOM) UD suspension PO PRN (11:30)
[2021-09-05] MEDS ORDERED: magnesium 2GM in 50ml NS 50 ML IV PRN (11:30)
[2021-09-05] MEDS ORDERED: POTASSIUM BICARB 20meq eff tab 20 MEQ TABLET.EFF PO PRN ×2 (11:30)
[2021-09-05] MEDS: normal saline 1000ml 1,000 ML IV SCH ×2 (12:00→21:30)
[2021-09-05] MEDS: ipratropium/albuterol 3ml nebule NEB SCH ×2 (15:21→20:08)
[2021-09-05] MEDS: piperacillin/tazo 3.375gm/50ml 50 ML IV SCH (16:25)
[2021-09-05] MEDS: HYDROcodone/acetaminophen 10/325mg tab PO PRN ×2 (17:11→22:38)
[2021-09-05] MEDS: albuterol 2.5 MG/3 ML nebule NEB SCH (20:00)
[2021-09-05] MEDS: K and/or MAG REPLACEMENT MC SCH (20:00)
[2021-09-05] MEDS: FLUoxetine 20mg capsule PO SCH (20:34)
[2021-09-05] MEDS: QUEtiapine 25mg tablet PO SCH (20:34)
[2021-09-05] MEDS: docusate sod 100mg capsule PO SCH (20:34)
[2021-09-05 22:00] VITALS: BP 106/73
[2021-09-06] MEDS: piperacillin/tazo 3.375gm/50ml 50 ML IV SCH ×2 (00:32→08:01)
[2021-09-06] MEDS: LORazepam 1 MG tablet PO PRN ×2 (01:29→16:44)
[2021-09-06 02:00] VITALS: BP 99/78
[2021-09-06] MEDS: albuterol 2.5 MG/3 ML nebule NEB SCH ×2 (02:00→07:26)
[2021-09-06] MEDS: ipratropium/albuterol 3ml nebule NEB SCH ×4 (02:44→20:12)
--- NOTE | 2021-09-06 03:57 | NUR ---
Critical lab positive blood cultures: bottles 1 and 2 with gram positive cocci clusters and pair. Dr. Mcdonald notified and order for Vancomycin was obtained.
[2021-09-06] MEDS ORDERED: NORMAL SALINE IV ONE (04:00)
[2021-09-06] MEDS ORDERED: VANCOMYCIN IV ONE (04:00)
[2021-09-06 06:00] VITALS: BP 119/80
[2021-09-06 06:55] LABS: BASOPHILS # (AUTO) 0.1 X10'3 (0-0.2); BASOPHILS % (AUTO) 0.8 % (0-1); EOSINOPHILS # (AUTO) 0.3 X10'3 (0-0.9); EOSINOPHILS % (AUTO) 2.7 % (0-6); HEMATOCRIT 37.1 % (42.0-52.0); HEMOGLOBIN 12.4 g/dl (14.0-17.9); LYMPHOCYTES # (AUTO) 1.9 X10'3 (1.1-4.8); LYMPHOCYTES % (AUTO) 15.1 % (21-51); MEAN CORPUSCULAR HEMOGLOBIN 29.2 PG (27.0-31.0); MEAN CORPUSCULAR HGB CONC 33.4 g/dL (33.0-36.5); MEAN CORPUSCULAR VOLUME 87.5 FL (78-98); MONOCYTES % (AUTO) 8.2 % (2-12); NEUTROPHILS # (AUTO) 9.4 X10'3 (1.8-7.7); NEUTROPHILS % (AUTO) 73.2 % (42-75); PLATELET COUNT 272 X10'3 (140-440); RED BLOOD COUNT 4.24 X10'6 (4.70-6.10); RED CELL DISTRIBUTION WIDTH 15.8 % (11.5-14.5); WHITE BLOOD COUNT 12.8 X10'3 (4.5-11.0)
[2021-09-06 07:19] LABS: ALANINE AMINOTRANSFERASE 29 U/L (12-78); ALBUMIN 3.1 G/DL (3.4-5.0); ALBUMIN/GLOBULIN RATIO 1.1 (1.1-1.5); ALKALINE PHOSPHATASE 45 IU/L (46-116); ANION GAP 5 (8-16); ASPARTATE AMINO TRANSFERASE 20 U/L (10-37); BILIRUBIN,TOTAL 0.6 MG/DL (0.1-1.0); BLOOD UREA NITROGEN 13 MG/DL (7-18); BUN/CREATININE RATIO 17.6 (5.4-32.0); CALCIUM 8.9 MG/DL (8.5-10.1); CHLORIDE 105 MMOL/L (99-107); CREATININE 0.74 MG/DL (0.60-1.10); GLUCOSE 86 MG/DL (70-104); MAGNESIUM 2.1 MG/DL (1.5-2.4); POTASSIUM 3.9 MMOL/L (3.5-5.1); SODIUM 139 MMOL/L (135-145); TOTAL CARBON DIOXIDE 28.8 MMOL/L (24-32); eGFR > 90 ML/MIN
[2021-09-06] MEDS: docusate sod 100mg capsule PO SCH ×2 (08:00→20:00)
[2021-09-06] MEDS: K and/or MAG REPLACEMENT MC SCH ×2 (08:00→19:11)
[2021-09-06] MEDS ORDERED: methylPREDNISolone sod succ 125mg/2ml vial IV SCH (08:00)
[2021-09-06] MEDS: normal saline 1000ml 1,000 ML IV SCH ×2 (08:00→17:30)
[2021-09-06] MEDS: enoxaparin 40mg/0.4ml syringe SUBCUT SCH (08:04)
[2021-09-06] MEDS: lisinopril 20mg tablet PO SCH (08:06)
[2021-09-06] MEDS: HYDROcodone/acetaminophen 10/325mg tab PO PRN ×3 (08:06→16:45)
[2021-09-06] MEDS: aspirin 81mg, enteric-coated 1 TAB TABLET.DR PO SCH (08:06)
[2021-09-06] MEDS: pantoprazole 40mg Tablet.DR PO SCH (08:07)
[2021-09-06] MEDS: FLUoxetine 20mg capsule PO SCH ×2 (08:07→20:00)
[2021-09-06 11:00] VITALS: BP 113/70
[2021-09-06] MEDS: levoFLOXACIN-Levaquin 500mg/D5 100 ML IV SCH (11:20)
[2021-09-06] MEDS ORDERED: albuterol 2.5 MG/3 ML nebule NEB SCH (13:29)
[2021-09-06 15:00] VITALS: BP 111/83
[2021-09-06] MEDS ORDERED: vancomycin/NS 1 GM ADD-VANTAGE 250 ML IV SCH (16:00)
[2021-09-06 18:00] VITALS: BP 105/71
[2021-09-06] MEDS: methylPREDNISolone sod succ 125mg/2ml vial IV SCH (20:00)
[2021-09-06] MEDS: QUEtiapine 25mg tablet PO SCH (21:39)
[2021-09-06 22:00] VITALS: BP 101/63
[2021-09-07 02:00] VITALS: BP 123/74
[2021-09-07] MEDS: HYDROcodone/acetaminophen 10/325mg tab PO PRN ×5 (02:21→22:04)
[2021-09-07] MEDS: ipratropium/albuterol 3ml nebule NEB SCH ×4 (02:35→20:11)
[2021-09-07] MEDS: normal saline 1000ml 1,000 ML IV SCH ×3 (03:30→23:58)
[2021-09-07 06:00] VITALS: BP 113/70
[2021-09-07 06:54] LABS: BASOPHILS % (AUTO) 0.1 % (0-1); EOSINOPHILS % (AUTO) 0 % (0-6); HEMATOCRIT 35.8 % (42.0-52.0); HEMOGLOBIN 12.1 g/dl (14.0-17.9); LYMPHOCYTES # (AUTO) 0.6 X10'3 (1.1-4.8); LYMPHOCYTES % (AUTO) 3.8 % (21-51); MEAN CORPUSCULAR HEMOGLOBIN 29.4 PG (27.0-31.0); MEAN CORPUSCULAR HGB CONC 33.7 g/dL (33.0-36.5); MEAN CORPUSCULAR VOLUME 87.2 FL (78-98); MEAN PLATELET VOLUME 6.3 FL (7.4-10.4); MONOCYTES % (AUTO) 5.7 % (2-12); NEUTROPHILS # (AUTO) 15.3 X10'3 (1.8-7.7); NEUTROPHILS % (AUTO) 90.4 % (42-75); PLATELET COUNT 302 X10'3 (140-440); RED BLOOD COUNT 4.11 X10'6 (4.70-6.10); RED CELL DISTRIBUTION WIDTH 15.5 % (11.5-14.5)
[2021-09-07 06:59] LABS: ALANINE AMINOTRANSFERASE 28 U/L (12-78); ALBUMIN 2.8 G/DL (3.4-5.0); ALBUMIN/GLOBULIN RATIO 0.9 (1.1-1.5); ALKALINE PHOSPHATASE 46 IU/L (46-116); ANION GAP 5 (8-16); ASPARTATE AMINO TRANSFERASE 16 U/L (10-37); BLOOD UREA NITROGEN 16 MG/DL (7-18); BUN/CREATININE RATIO 22.9 (5.4-32.0); CALCIUM 9.3 MG/DL (8.5-10.1); CHLORIDE 107 MMOL/L (99-107); GLUCOSE 180 MG/DL (70-104); MAGNESIUM 2.1 MG/DL (1.5-2.4); POTASSIUM 3.9 MMOL/L (3.5-5.1); SODIUM 139 MMOL/L (135-145); TOTAL CARBON DIOXIDE 26.9 MMOL/L (24-32); TOTAL PROTEIN 5.9 G/DL (6.4-8.2); eGFR > 90 ML/MIN
[2021-09-07] MEDS: levoFLOXACIN-Levaquin 500mg/D5 100 ML IV SCH (07:33)
[2021-09-07] MEDS: docusate sod 100mg capsule PO SCH ×2 (07:35→19:59)
[2021-09-07] MEDS: enoxaparin 40mg/0.4ml syringe SUBCUT SCH (07:35)
[2021-09-07] MEDS: methylPREDNISolone sod succ 125mg/2ml vial IV SCH ×2 (07:36→19:59)
[2021-09-07 07:38] LABS: BILIRUBIN,TOTAL 0.2 MG/DL (0.1-1.0)
[2021-09-07] MEDS: lisinopril 20mg tablet PO SCH (07:38)
[2021-09-07] MEDS: FLUoxetine 20mg capsule PO SCH ×2 (07:39→19:59)
[2021-09-07] MEDS: LORazepam 1 MG tablet PO PRN ×2 (07:39→23:57)
[2021-09-07] MEDS: pantoprazole 40mg Tablet.DR PO SCH (07:39)
[2021-09-07] MEDS: aspirin 81mg, enteric-coated 1 TAB TABLET.DR PO SCH (07:39)
[2021-09-07] MEDS: K and/or MAG REPLACEMENT MC SCH ×2 (07:40→19:52)
--- NOTE | 2021-09-07 08:35 | NUR ---
Nutrition consult re: "pt is requesting an order for ensure supplements". Pt currently on a heart healthy diet and eating well with 75-100% PO intake of two meals with 25% PO intake of one meal. Overall pt meeting estimated nutrient needs at this time, ONS not warranted. Will continue to follow and make recommendations as appropriate. Addendum: 09/07/21 at [address] Amended: Links added.
[2021-09-07 11:00] VITALS: BP 110/73
[2021-09-07 15:00] VITALS: BP 117/69
[2021-09-07] MEDS ORDERED: VANCOMYCIN LEVEL IV ONE (15:30)
[2021-09-07 18:00] VITALS: BP 114/82
[2021-09-07] MEDS: QUEtiapine 25mg tablet PO SCH (19:59)
[2021-09-07 22:00] VITALS: BP 117/78
[2021-09-08 02:00] VITALS: BP 123/81
[2021-09-08] MEDS: ipratropium/albuterol 3ml nebule NEB SCH ×4 (02:47→21:09)
[2021-09-08] MEDS: HYDROcodone/acetaminophen 10/325mg tab PO PRN ×5 (05:16→21:42)
[2021-09-08 06:00] VITALS: BP 118/75
[2021-09-08 07:00] LABS: BASOPHILS % (AUTO) 0 % (0-1); EOSINOPHILS % (AUTO) 0 % (0-6); HEMATOCRIT 35.6 % (42.0-52.0); HEMOGLOBIN 11.7 g/dl (14.0-17.9); LYMPHOCYTES # (AUTO) 0.9 X10'3 (1.1-4.8); LYMPHOCYTES % (AUTO) 5.3 % (21-51); MEAN CORPUSCULAR HEMOGLOBIN 28.2 PG (27.0-31.0); MEAN CORPUSCULAR HGB CONC 32.8 g/dL (33.0-36.5); MEAN CORPUSCULAR VOLUME 86.1 FL (78-98); MEAN PLATELET VOLUME 6.4 FL (7.4-10.4); MONOCYTES # (AUTO) 0.8 X10'3 (0-0.9); NEUTROPHILS # (AUTO) 14.5 X10'3 (1.8-7.7); NEUTROPHILS % (AUTO) 89.7 % (42-75); PLATELET COUNT 325 X10'3 (140-440); RED BLOOD COUNT 4.13 X10'6 (4.70-6.10); RED CELL DISTRIBUTION WIDTH 15.5 % (11.5-14.5); WHITE BLOOD COUNT 16.2 X10'3 (4.5-11.0)
[2021-09-08 07:16] LABS: ALANINE AMINOTRANSFERASE 29 U/L (12-78); ALBUMIN 2.8 G/DL (3.4-5.0); ALBUMIN/GLOBULIN RATIO 0.9 (1.1-1.5); ALKALINE PHOSPHATASE 44 IU/L (46-116); ANION GAP 7 (8-16); ASPARTATE AMINO TRANSFERASE 16 U/L (10-37); BILIRUBIN,TOTAL 0.2 MG/DL (0.1-1.0); BLOOD UREA NITROGEN 21 MG/DL (7-18); BUN/CREATININE RATIO 32.3 (5.4-32.0); CALCIUM 8.9 MG/DL (8.5-10.1); CHLORIDE 107 MMOL/L (99-107); CREATININE 0.65 MG/DL (0.60-1.10); GLUCOSE 140 MG/DL (70-104); MAGNESIUM 1.9 MG/DL (1.5-2.4); POTASSIUM 3.6 MMOL/L (3.5-5.1); SODIUM 140 MMOL/L (135-145); TOTAL PROTEIN 5.8 G/DL (6.4-8.2); eGFR > 90 ML/MIN
[2021-09-08] MEDS: K and/or MAG REPLACEMENT MC SCH ×2 (08:00→19:51)
[2021-09-08] MEDS: docusate sod 100mg capsule PO SCH ×2 (08:16→19:52)
[2021-09-08] MEDS: aspirin 81mg, enteric-coated 1 TAB TABLET.DR PO SCH (08:16)
[2021-09-08] MEDS: FLUoxetine 20mg capsule PO SCH ×2 (08:16→19:48)
[2021-09-08] MEDS: lisinopril 20mg tablet PO SCH (08:17)
[2021-09-08] MEDS: LORazepam 1 MG tablet PO PRN ×2 (08:17→16:28)
[2021-09-08] MEDS: pantoprazole 40mg Tablet.DR PO SCH (08:17)
[2021-09-08] MEDS: methylPREDNISolone sod succ 125mg/2ml vial IV SCH ×2 (08:18→19:48)
[2021-09-08] MEDS: levoFLOXACIN-Levaquin 500mg/D5 100 ML IV SCH (08:19)
[2021-09-08] MEDS: enoxaparin 40mg/0.4ml syringe SUBCUT SCH (08:20)
[2021-09-08 11:00] VITALS: BP 124/83
[2021-09-08] MEDS: normal saline 1000ml 1,000 ML IV SCH ×2 (13:37→21:42)
[2021-09-08 15:00] VITALS: BP 121/87
[2021-09-08 18:00] VITALS: BP 131/88
[2021-09-08] MEDS: QUEtiapine 25mg tablet PO SCH (21:41)
[2021-09-08 22:00] VITALS: BP 143/91
[2021-09-09] MEDS: HYDROcodone/acetaminophen 10/325mg tab PO PRN ×2 (01:53→08:17)
[2021-09-09 02:00] VITALS: BP 125/90
[2021-09-09] MEDS: ipratropium/albuterol 3ml nebule NEB SCH ×2 (03:12→08:57)
[2021-09-09] MEDS: normal saline 1000ml 1,000 ML IV SCH (05:37)
[2021-09-09 06:23] LABS: BASOPHILS % (AUTO) 0.1 % (0-1); EOSINOPHILS % (AUTO) 0 % (0-6); HEMATOCRIT 35.7 % (42.0-52.0); HEMOGLOBIN 11.9 g/dl (14.0-17.9); LYMPHOCYTES # (AUTO) 1.2 X10'3 (1.1-4.8); LYMPHOCYTES % (AUTO) 9.2 % (21-51); MEAN CORPUSCULAR HEMOGLOBIN 29.2 PG (27.0-31.0); MEAN CORPUSCULAR HGB CONC 33.4 g/dL (33.0-36.5); MEAN CORPUSCULAR VOLUME 87.5 FL (78-98); MEAN PLATELET VOLUME 6.2 FL (7.4-10.4); MONOCYTES # (AUTO) 0.9 X10'3 (0-0.9); MONOCYTES % (AUTO) 6.5 % (2-12); NEUTROPHILS % (AUTO) 84.2 % (42-75); PLATELET COUNT 310 X10'3 (140-440); RED BLOOD COUNT 4.08 X10'6 (4.70-6.10); RED CELL DISTRIBUTION WIDTH 15.6 % (11.5-14.5); WHITE BLOOD COUNT 13.1 X10'3 (4.5-11.0)
[2021-09-09 06:36] LABS: ALANINE AMINOTRANSFERASE 35 U/L (12-78); ALBUMIN 2.9 G/DL (3.4-5.0); ALKALINE PHOSPHATASE 40 IU/L (46-116); ANION GAP 5 (8-16); ASPARTATE AMINO TRANSFERASE 15 U/L (10-37); BILIRUBIN,TOTAL 0.1 MG/DL (0.1-1.0); BLOOD UREA NITROGEN 20 MG/DL (7-18); BUN/CREATININE RATIO 29.9 (5.4-32.0); CALCIUM 8.9 MG/DL (8.5-10.1); CHLORIDE 107 MMOL/L (99-107); CREATININE 0.67 MG/DL (0.60-1.10); GLUCOSE 133 MG/DL (70-104); MAGNESIUM 1.9 MG/DL (1.5-2.4); POTASSIUM 3.7 MMOL/L (3.5-5.1); SODIUM 141 MMOL/L (135-145); TOTAL CARBON DIOXIDE 29.4 MMOL/L (24-32); TOTAL PROTEIN 5.8 G/DL (6.4-8.2); eGFR > 90 ML/MIN
[2021-09-09 07:00] VITALS: BP 136/96
--- NOTE | 2021-09-09 07:05 | NUR ---
Change of shift report given to change RN. patient stable. No acute complaints.
[2021-09-09] MEDS: methylPREDNISolone sod succ 125mg/2ml vial IV SCH (08:03)
[2021-09-09] MEDS: levoFLOXACIN-Levaquin 500mg/D5 100 ML IV SCH (08:03)
[2021-09-09] MEDS: enoxaparin 40mg/0.4ml syringe SUBCUT SCH (08:04)
[2021-09-09 08:05] VITALS: BP_SYST 138
[2021-09-09] MEDS: pantoprazole 40mg Tablet.DR PO SCH (08:05)
[2021-09-09] MEDS: aspirin 81mg, enteric-coated 1 TAB TABLET.DR PO SCH (08:05)
[2021-09-09] MEDS: FLUoxetine 20mg capsule PO SCH (08:05)
[2021-09-09] MEDS: docusate sod 100mg capsule PO SCH (08:05)
[2021-09-09] MEDS: lisinopril 20mg tablet PO SCH (08:05)
--- NOTE | 2021-09-09 09:43 | NUR ---
Initial: Pt admit for acute respiratory failure, COPD exacerbation, and acute bronchitis. Pt on a heart healthy diet and eating well with 75-100% PO intake throughout LOS meeting estimated nutrient needs. LBM 09/08. No documented edema or wounds. No nutrition diagnosis at this time. Will continue to follow. Recommendations: 1) Continue heart healthy diet 2) Routine bowel care 3) Scaled weight this admit; subsequent weekly scaled weights Addendum: 09/09/21 at [address] Amended: Links added.
[2021-09-09] MEDS ORDERED: PRED20TA PO (09:58)
[2021-09-09] MEDS ORDERED: LORA-268 MT (09:58)
[2021-09-09] MEDS ORDERED: LEVO500T90 PO (09:58)
== END 2021-09-09 11:37 | disposition home or self-care (01) | DRG 720 ==
LOC: ER 05:00 → ED HOLD 11:46 → PCU 3S 19:18
PROVIDERS: ADMIT Family Medicine; ATTEND Family Medicine
PROC: 5A09357 Assistance with Respiratory Ventilation, Less than 24 Consecutive Hours, Continuous Positive Airway Pressure (ICD-10-PCS; principal; 2021-09-05)
PROC: B32T1ZZ Computerized Tomography (CT Scan) of Left Pulmonary Artery using Low Osmolar Contrast (ICD-10-PCS; 2021-09-05)
PROC: B3201ZZ Computerized Tomography (CT Scan) of Thoracic Aorta using Low Osmolar Contrast (ICD-10-PCS; 2021-09-05)
PROC: B32S1ZZ Computerized Tomography (CT Scan) of Right Pulmonary Artery using Low Osmolar Contrast (ICD-10-PCS; 2021-09-05)
DX: A41.9 Sepsis, unspecified organism (principal); J96.20 Acute and chronic respiratory failure, unspecified whether with hypoxia or hypercapnia; J44.0 Chronic obstructive pulmonary disease with (acute) lower respiratory infection; J44.1 Chronic obstructive pulmonary disease with (acute) exacerbation; J45.901 Unspecified asthma with (acute) exacerbation; F32.A Depression, unspecified; J20.9 Acute bronchitis, unspecified; Z20.822 Contact with and (suspected) exposure to COVID-19; Z96.643 Presence of artificial hip joint, bilateral; E66.9 Obesity, unspecified; G47.30 Sleep apnea, unspecified; R19.7 Diarrhea, unspecified; I10 Essential (primary) hypertension; F41.9 Anxiety disorder, unspecified; Z80.1 Family history of malignant neoplasm of trachea, bronchus and lung; Z82.5 Family history of asthma and other chronic lower respiratory diseases; Z86.73 Personal history of transient ischemic attack (TIA), and cerebral infarction without residual deficits; Z68.41 Body mass index [BMI] 40.0-44.9, adult; Z79.899 Other long term (current) drug therapy; Z79.82 Long term (current) use of aspirin
CPT/HCPCS: 36415; 71045; 71275; 80053; 81001; 82800; 82948; 83605; 83735; 83880; 84145; 84484; 85025; 87040; 87077; 87081; 87186; 87502; 87503; 87635; 93005; 94640; 94660; 94760; 96374; 99291; A4615; C9803; G0378; J1650; J1956; J2543; J2930; J3370; J3490; J7030; J7040; Q9967

== ENCOUNTER 2021-09-18 09:42 | Emergency (ER) | payer MEDICAID ==
[~2021-09-18] VITALS: Ht 162.6 cm; Wt 81.0 kg
[~2021-09-18 09:42] MED LIST changes: +LEVO500T90 PO; +LORA-268 MT; -LORA-269 PO; +PRED20TA PO
[2021-09-18 10:56] LABS: BASOPHILS # (AUTO) 0.1 X10'3 (0-0.2); BASOPHILS % (AUTO) 0.9 % (0-1); EOSINOPHILS # (AUTO) 0.2 X10'3 (0-0.9); EOSINOPHILS % (AUTO) 1.6 % (0-6); HEMATOCRIT 41.2 % (42.0-52.0); HEMOGLOBIN 13.7 g/dl (14.0-17.9); LYMPHOCYTES # (AUTO) 1.3 X10'3 (1.1-4.8); LYMPHOCYTES % (AUTO) 12.5 % (21-51); MEAN CORPUSCULAR HEMOGLOBIN 28.5 PG (27.0-31.0); MEAN CORPUSCULAR HGB CONC 33.3 g/dL (33.0-36.5); MEAN CORPUSCULAR VOLUME 85.6 FL (78-98); MEAN PLATELET VOLUME 6.1 FL (7.4-10.4); MONOCYTES # (AUTO) 1.3 X10'3 (0-0.9); MONOCYTES % (AUTO) 12.7 % (2-12); NEUTROPHILS # (AUTO) 7.4 X10'3 (1.8-7.7); NEUTROPHILS % (AUTO) 72.3 % (42-75); PLATELET COUNT 276 X10'3 (140-440); RED BLOOD COUNT 4.81 X10'6 (4.70-6.10); RED CELL DISTRIBUTION WIDTH 15.6 % (11.5-14.5); WHITE BLOOD COUNT 10.3 X10'3 (4.5-11.0)
[2021-09-18 11:04] LABS: ALANINE AMINOTRANSFERASE 37 U/L (12-78); ALBUMIN 3.6 G/DL (3.4-5.0); ALBUMIN/GLOBULIN RATIO 1.2 (1.1-1.5); ALKALINE PHOSPHATASE 62 IU/L (46-116); ANION GAP 9 (8-16); ASPARTATE AMINO TRANSFERASE 23 U/L (10-37); BILIRUBIN,TOTAL 0.5 MG/DL (0.1-1.0); BLOOD UREA NITROGEN 11 MG/DL (7-18); BUN/CREATININE RATIO 11.1 (5.4-32.0); CALCIUM 8.9 MG/DL (8.5-10.1); CHLORIDE 99 MMOL/L (99-107); CREATININE 0.99 MG/DL (0.60-1.10); GLUCOSE 99 MG/DL (70-104); POTASSIUM 3.7 MMOL/L (3.5-5.1); SODIUM 135 MMOL/L (135-145); TOTAL CARBON DIOXIDE 26.8 MMOL/L (24-32); TOTAL PROTEIN 6.6 G/DL (6.4-8.2); eGFR 77 ML/MIN
[2021-09-18 11:12] LABS: MAGNESIUM 1.8 MG/DL (1.5-2.4)
[2021-09-18] MEDS ORDERED: NIRM1TAB PO ×2 (12:54)
[2021-09-18] MEDS ORDERED: BEBTELOVIMAB 175 MG/2 ML VIAL IV ONE (13:00)
[2021-09-18] MEDS ORDERED: normal saline 1000ML IV soln IVB ONE (14:25)
[2021-09-18 15:34] LABS: CLARITY,URINE CLEAR (Clear); GLUCOSE, URINE NEGATIVE (Neg); KETONES,URINE NEGATIVE (Neg); LEUKOCYTE ESTERASE ,URINE NEGATIVE (Neg); NITRITES, URINE NEGATIVE (Neg); OCCULT BLOOD,URINE NEGATIVE (Neg); PROTEIN,URINE NEGATIVE (Neg); UROBILINOGEN,URINE 0.2 E.U/dL (0.2-1.0)
[2021-09-18 15:35] LABS: COLOR,URINE STRAW (Yellow); UA COLLECTION TYPE URINAL
[2021-09-18 16:10] VITALS: BP 101/69
[2021-09-19] MEDS ORDERED: AMOX-580 PO (18:27)
--- NOTE | 2021-09-19 20:20 | NUR ---
attempted to call patient([phone]) without success,unable to leave voice mail. dr chacko made aware. Addendum: 09/19/21 at 2023 by MEDHAT follow up call vov dr chacko.
== END 2021-09-18 17:03 | disposition home or self-care (01) ==
LOC: ER 09:43
DX: U07.1 COVID-19 (principal); R06.02 Shortness of breath; J44.9 Chronic obstructive pulmonary disease, unspecified; F12.90 Cannabis use, unspecified, uncomplicated; Z87.01 Personal history of pneumonia (recurrent); Z79.899 Other long term (current) drug therapy; Z79.82 Long term (current) use of aspirin; Z79.2 Long term (current) use of antibiotics
CPT/HCPCS: 36415; 71045; 80053; 81003; 83605; 83735; 83880; 84145; 84484; 85025; 87040; 87635; 93005; 96360; 96361; 99285; C9803; J7030; M0222; Q0222; 87077; A4615

== ENCOUNTER 2022-08-04 18:53 | Inpatient (IN) | payer MEDICAID ==
[~2022-08-04] VITALS: Ht 162.6 cm; Wt 72.7 kg
[~2022-08-04 18:53] MED LIST changes: -LEVO500T90 PO; -PRED20TA PO
[2022-08-04 19:39] LABS: HEMOGLOBIN 15.5 g/dl (14.0-17.9); MEAN PLATELET VOLUME 6.1 FL (7.4-10.4); RED CELL DISTRIBUTION WIDTH 19.2 % (11.5-14.5); WHITE BLOOD COUNT 11.9 X10'3 (4.5-11.0)
[2022-08-04 19:41] LABS: BASOPHILS % (AUTO) 0.3 % (0-1); EOSINOPHILS # (AUTO) 0.2 X10'3 (0-0.9); EOSINOPHILS % (AUTO) 1.3 % (0-6); HEMATOCRIT 46.9 % (42.0-52.0); LYMPHOCYTES # (AUTO) 1.3 X10'3 (1.1-4.8); LYMPHOCYTES % (AUTO) 11.3 % (21-51); MEAN CORPUSCULAR HEMOGLOBIN 27.5 PG (27.0-31.0); MEAN CORPUSCULAR VOLUME 83.2 FL (78-98); MONOCYTES # (AUTO) 0.8 X10'3 (0-0.9); MONOCYTES % (AUTO) 7.1 % (2-12); NEUTROPHILS # (AUTO) 9.5 X10'3 (1.8-7.7); PLATELET COUNT 320 X10'3 (140-440); RED BLOOD COUNT 5.63 X10'6 (4.70-6.10)
[2022-08-04 19:51] LABS: ALANINE AMINOTRANSFERASE 24 U/L (12-78); ALBUMIN 4.5 G/DL (3.4-5.0); ALBUMIN/GLOBULIN RATIO 1.4 (1.1-1.5); ALKALINE PHOSPHATASE 88 IU/L (46-116); ANION GAP 14 (8-16); ASPARTATE AMINO TRANSFERASE 24 U/L (10-37); BILIRUBIN,TOTAL 0.8 MG/DL (0.1-1.0); BLOOD UREA NITROGEN 31 MG/DL (7-18); BUN/CREATININE RATIO 31.6 (10.0-20.0); CALCIUM 9.9 MG/DL (8.5-10.1); CHLORIDE 98 MMOL/L (99-107); CREATININE 0.98 MG/DL (0.60-1.10); GLUCOSE 179 MG/DL (70-104); POTASSIUM 4.5 MMOL/L (3.5-5.1); SODIUM 135 MMOL/L (135-145); TOTAL CARBON DIOXIDE 23.3 MMOL/L (24-32); TOTAL PROTEIN 7.8 G/DL (6.4-8.2); eGFR 78 ML/MIN
[2022-08-04 20:23] LABS: ANISOCYTOSIS 2+; PLATELET ESTIMATE NORMAL
[2022-08-04] MEDS ORDERED: piperacillin/tazo 3.375gm/50ml 50 ML IV ONE (20:25)
[2022-08-04] MEDS ORDERED: vancomycin/NS 1 GM ADD-VANTAGE 250 ML IV ONE (20:25)
[2022-08-04] MEDS ORDERED: normal saline 1000ML IV soln IV ONE (20:25)
[2022-08-04] MEDS ORDERED: morphine 4 MG/ML inj SYRINge IV ONE (20:25)
[2022-08-04] MEDS ORDERED: ondansetron/PF 4mg/2ml inj IV ONE (20:25)
[2022-08-04] MEDS ORDERED: LORazepam 2 mg/ml vial IV ONE (20:40)
[2022-08-04] MEDS ORDERED: LORazepam 2 mg/ml vial ONE (20:40)
[2022-08-04 20:47] LABS: MAGNESIUM 1.7 MG/DL (1.5-2.4)
[2022-08-04] MEDS ORDERED: VANCOmycin 2,000MG in NS 500ml IV soln IV ONE (21:00)
--- NOTE | 2022-08-04 21:35 | NUR ---
fluid bolus started at 2040 after IV was initiated very difficult iv start
[2022-08-05 00:22] LABS: CLARITY,URINE CLEAR (Clear); COLOR,URINE YELLOW (Yellow); GLUCOSE, URINE NEGATIVE (Neg); KETONES,URINE TRACE mg/dl (Neg); LEUKOCYTE ESTERASE ,URINE NEGATIVE (Neg); NITRITES, URINE NEGATIVE (Neg); OCCULT BLOOD,URINE TRACE-INTACT (Neg); PROTEIN,URINE NEGATIVE (Neg); UROBILINOGEN,URINE 0.2 E.U/dL (0.2-1.0)
[2022-08-05 00:28] LABS: UA COLLECTION TYPE URINAL
[2022-08-05 00:30] LABS: BACTERIA,URINE NONE SEEN /HPF (Neg); SQUAMOUS EPITHELIAL CELL,UR FEW /LPF (FEW); WBC,URINE 0-4 /HPF (0-4)
[2022-08-05] MEDS ORDERED: HYDROcodone/acetaminophen 10/325mg tab PO ONE (00:45)
[2022-08-05] MEDS ORDERED: iohexol 300mg/ml 100ml inj. ONE (00:57)
[2022-08-05] MEDS ORDERED: piperacillin/tazo 3.375gm/50ml 50 ML IV ONE (05:25)
[2022-08-05] MEDS: vancomycin/NS 1 GM ADD-VANTAGE 250 ML IV SCH ×2 (09:59→20:53)
--- NOTE | 2022-08-05 10:13 | NUR ---
[facility] [phone]
[2022-08-05] MEDS ORDERED: albuterol 2.5 MG/3 ML nebule NEB ONE (12:20)
[2022-08-05] MEDS ORDERED: morphine 4 MG/ML inj SYRINge IV ONE (12:30)
--- NOTE | 2022-08-05 12:33 | NUR ---
dr shepard at the bedside
[2022-08-05] MEDS: normal saline 1000ml 1,000 ML IV SCH ×2 (12:45→22:45)
[2022-08-05] MEDS ORDERED: acetaminophen 325mg tablet PO PRN (12:45)
[2022-08-05] MEDS ORDERED: magnesium Cl slow-release 64mg tablet PO PRN (12:45)
[2022-08-05] MEDS ORDERED: magnesium 4gm in 100ml NS 100 ML IV PRN (12:45)
[2022-08-05] MEDS ORDERED: metoclopramide 5 mg/ml inj IV PRN (12:45)
[2022-08-05] MEDS ORDERED: potassium Cl 40MEQ/1/2NS 520ml 520 ML IV PRN (12:45)
[2022-08-05] MEDS ORDERED: magnesium 2GM in 50ml NS 50 ML IV PRN (12:45)
[2022-08-05] MEDS ORDERED: ondansetron/PF 4mg/2ml inj IV PRN (12:45)
[2022-08-05] MEDS ORDERED: potassium Cl 20 mEq SR tablet PO PRN (12:45)
[2022-08-05] MEDS: piperacillin/tazo 3.375gm/50ml 50 ML IV SCH (17:19)
[2022-08-05] MEDS: HYDROcodone/acetaminophen 5mg/325mg tablet PO PRN (17:20)
[2022-08-05 18:03] VITALS: BP 132/100
--- NOTE | 2022-08-05 18:33 | NUR ---
PAGED DR MATA RE: PAGER ID: [phone] MESSAGE: JOSH PAINTING. PT REQUESTING ATIVAN. FEELING ANXIOUS. WHIT [phone] TELE
--- NOTE | 2022-08-05 18:34 | NUR ---
Problems reprioritized. Patient report given, questions answered & plan of care reviewed with GAVIOTA SHEA.
[2022-08-05] MEDS: LORazepam 0.5 MG tablet PO PRN (19:11)
--- NOTE | 2022-08-05 19:30 | NUR ---
sitting up in bed coughing, using pillow to splint inc. coughed up large amt sputum, swalloed, unable to eval. pt states feels better now, declines any medication. Addendum: 08/05/22 at 1938 by Juju Decker LVN Amended: Links added. Addendum: 08/05/22 at 1944 by Sixto Melendez RN DISSREGARD ABOVE NOTE, DONE ON WRONG PATIENT. DHAVAL
[2022-08-05] MEDS: K and/or MAG REPLACEMENT MC SCH (20:00)
[2022-08-05 22:00] VITALS: BP 165/104
[2022-08-05] MEDS: morphine 2 MG/ML inj. syringe IV PRN (22:13)
--- NOTE | 2022-08-05 22:13 | NUR ---
morphine given as [place] 5 not effective. pt consistently asking for additional pain meds and advised he takes 2 norco 10s at home
--- NOTE | 2022-08-06 00:03 | NUR ---
Page Sent PAGER ID: [phone] MESSAGE: [phone]: Pj Degroot: pharmacy is on the floor with questions regarding this pts meds. Juju ext [phone]
[2022-08-06] MEDS ORDERED: lisinopril 20mg tablet PO ONE (00:06)
[2022-08-06] MEDS: piperacillin/tazo 3.375gm/50ml 50 ML IV SCH ×3 (00:09→16:19)
[2022-08-06] MEDS ORDERED: LORazepam 0.5 MG tablet PO ONE (00:09)
[2022-08-06] MEDS: HYDROcodone/acetaminophen 5mg/325mg tablet PO PRN ×4 (00:23→23:09)
[2022-08-06] MEDS ORDERED: PRE5T PO (00:44)
[2022-08-06] MEDS ORDERED: ATOR20TA66 PO (00:44)
[2022-08-06] MEDS ORDERED: GABA300C PO (00:44)
[2022-08-06] MEDS ORDERED: ONDA4TAB12 PO (00:44)
[2022-08-06] MEDS ORDERED: FLUO-1 PO (00:44)
[2022-08-06 02:00] VITALS: BP 108/78
--- NOTE | 2022-08-06 02:32 | NUR ---
I HAVE REVIEWED HEAD OF ACQUISITIONS ASSESSMENTS AND AGREE WITH BASIL HUDSON'S PHYSICAL ASSESSMENTS 08/05/22
[2022-08-06 06:55] LABS: BASOPHILS % (AUTO) 0.5 % (0-1); EOSINOPHILS # (AUTO) 0.3 X10'3 (0-0.9); EOSINOPHILS % (AUTO) 4.2 % (0-6); HEMATOCRIT 40.3 % (42.0-52.0); HEMOGLOBIN 13.3 g/dl (14.0-17.9); LYMPHOCYTES # (AUTO) 1.6 X10'3 (1.1-4.8); LYMPHOCYTES % (AUTO) 25.7 % (21-51); MEAN CORPUSCULAR HEMOGLOBIN 27.6 PG (27.0-31.0); MEAN CORPUSCULAR HGB CONC 33.1 g/dL (33.0-36.5); MEAN CORPUSCULAR VOLUME 83.5 FL (78-98); MEAN PLATELET VOLUME 6.5 FL (7.4-10.4); MONOCYTES # (AUTO) 0.7 X10'3 (0-0.9); MONOCYTES % (AUTO) 11.5 % (2-12); NEUTROPHILS # (AUTO) 3.6 X10'3 (1.8-7.7); NEUTROPHILS % (AUTO) 58.1 % (42-75); PLATELET COUNT 231 X10'3 (140-440); RED BLOOD COUNT 4.83 X10'6 (4.70-6.10); RED CELL DISTRIBUTION WIDTH 18.9 % (11.5-14.5); WHITE BLOOD COUNT 6.2 X10'3 (4.5-11.0)
--- NOTE | 2022-08-06 07:12 | NUR ---
Pt has refused morning vitals. I will monitor pt and push for 1100 vitals when pt is more awake and cooperative.
--- NOTE | 2022-08-06 07:12 | NUR ---
Patient in room PCU 3012. I have received report from Danyell SHEA and had the opportunity to ask questions and assume patient care.
[2022-08-06 07:15] LABS: ALBUMIN 3.2 G/DL (3.4-5.0); ANION GAP 10 (8-16); BLOOD UREA NITROGEN 11 MG/DL (7-18); CALCIUM 9.3 MG/DL (8.5-10.1); CHLORIDE 106 MMOL/L (99-107); CREATININE 0.61 MG/DL (0.60-1.10); GLUCOSE 95 MG/DL (70-104); MAGNESIUM 2.2 MG/DL (1.5-2.4); POTASSIUM 3.4 MMOL/L (3.5-5.1); SODIUM 141 MMOL/L (135-145); TOTAL CARBON DIOXIDE 25.3 MMOL/L (24-32); eGFR > 90 ML/MIN
[2022-08-06] MEDS: K and/or MAG REPLACEMENT MC SCH ×2 (08:00→20:48)
[2022-08-06] MEDS ORDERED: VANCOMYCIN LEVEL IV ONE (08:30)
[2022-08-06] MEDS: normal saline 1000ml 1,000 ML IV SCH ×2 (08:45→20:30)
[2022-08-06] MEDS: LORazepam 0.5 MG tablet PO PRN (08:51)
[2022-08-06] MEDS: morphine 2 MG/ML inj. syringe IV PRN (08:51)
--- NOTE | 2022-08-06 09:24 | NUR ---
Initial: Pt admit DX sepsis, N/V, COPD exacerbation, and abdominal wall abscess w/ hx recent spine surgery via anterior approach 04/2022 w/ subsequent 65 day hospital course per EMR. PO ~50% avg first heart healthy meal last night w/ no GI symptoms per EMR. Noted pt on heart healthy diet w/ no cardiac hx in MD notes and serum Na WNL s/p IV NS 5/6 in EMR; RD d/w RN regarding liberalizing to regular diet if physician agreeable given this. Will monitor for further PO trends and nutrition intervention needs this admit. Rec: 1. liberalize to regular diet; currently on heart healthy w/ no cardiac hx in MD notes and serum Na WNL on NS. 2. monitor PO trends for ONS needs 3. bowel care per rx 4. scaled wt this admit; subsequent weekly weights Addendum: 08/06/22 at [address] Amended: Links added.
--- NOTE | 2022-08-06 09:25 | NUR ---
PAGER ID: [phone] MESSAGE: Zane [phone], Pt has a completed med rec done last night. Can you review the meds and see if there are any we will start here. Pt has been asking about his BP meds. Martell 3019
[2022-08-06] MEDS ORDERED: albuterol 2.5 MG/3 ML nebule NEB PRN (09:30)
[2022-08-06] MEDS: atorvastatin 20mg tablet PO SCH (09:51)
[2022-08-06] MEDS: lisinopril 20mg tablet PO SCH (09:51)
[2022-08-06] MEDS: potassium Cl 20 mEq SR tablet PO PRN ×3 (10:53→19:25)
[2022-08-06 11:00] VITALS: BP 126/88
[2022-08-06] MEDS: VANCOmycin 1250MG/NS 250ml Bag 250 ML IV SCH ×2 (11:26→23:41)
[2022-08-06] MEDS: gabapentin 300mg capsule PO SCH ×2 (13:34→19:25)
[2022-08-06 15:00] VITALS: BP 144/89
[2022-08-06 15:20] LABS: ANISOCYTOSIS 2+; PLATELET ESTIMATE NORMAL
[2022-08-06 15:21] LABS: ELLIPTOCYTES FEW; SCHISTOCYTES FEW
[2022-08-06 18:00] VITALS: BP 153/98
--- NOTE | 2022-08-06 18:39 | NUR ---
Problems reprioritized. Patient report given, questions answered & plan of care reviewed with Gregory SHEA.
[2022-08-06] MEDS: FLUoxetine 20mg capsule PO SCH (19:24)
[2022-08-06] MEDS: QUEtiapine 25mg tablet PO SCH (19:25)
[2022-08-06 22:00] VITALS: BP 121/81
--- NOTE | 2022-08-07 00:27 | NUR ---
I HAVE REVIEWED AND AGREE WITH AUTO RADIATOR MECHANIC ASSESSMENT
[2022-08-07] MEDS: normal saline 1000ml 1,000 ML IV SCH ×2 (04:45→14:45)
[2022-08-07] MEDS: HYDROcodone/acetaminophen 5mg/325mg tablet PO PRN ×5 (05:00→21:08)
--- NOTE | 2022-08-07 06:21 | NUR ---
pt's ej was causing discomfort and pain, by time we got to pt from tech telling us he was going to remove it, it was already out, did not look like he did it, more like it was pulled when he used the restroom, he had an ej because he is a hard stick, this was about 2300, we called down to er and did get someone to say sure but they had a few codes and he was not able to come up
--- NOTE | 2022-08-07 06:35 | NUR ---
Page sent at approx [phone] -Pt 3012B, pt removed EJ during NOC shift, needs new line for IV ABX due @ 0800 please replace. Thank you, Joaquina Daley
[2022-08-07 07:00] VITALS: BP 130/90
[2022-08-07 07:09] LABS: BASOPHILS % (AUTO) 0.5 % (0-1); EOSINOPHILS # (AUTO) 0.3 X10'3 (0-0.9); EOSINOPHILS % (AUTO) 5.3 % (0-6); HEMATOCRIT 39.8 % (42.0-52.0); HEMOGLOBIN 12.9 g/dl (14.0-17.9); LYMPHOCYTES # (AUTO) 1.8 X10'3 (1.1-4.8); LYMPHOCYTES % (AUTO) 29.2 % (21-51); MEAN CORPUSCULAR HEMOGLOBIN 27.2 PG (27.0-31.0); MEAN CORPUSCULAR HGB CONC 32.4 g/dL (33.0-36.5); MEAN PLATELET VOLUME 6.2 FL (7.4-10.4); MONOCYTES # (AUTO) 0.6 X10'3 (0-0.9); MONOCYTES % (AUTO) 9.2 % (2-12); NEUTROPHILS # (AUTO) 3.4 X10'3 (1.8-7.7); NEUTROPHILS % (AUTO) 55.8 % (42-75); PLATELET COUNT 243 X10'3 (140-440); RED BLOOD COUNT 4.74 X10'6 (4.70-6.10); RED CELL DISTRIBUTION WIDTH 19.4 % (11.5-14.5); WHITE BLOOD COUNT 6.1 X10'3 (4.5-11.0)
[2022-08-07 07:33] LABS: ALBUMIN 3.3 G/DL (3.4-5.0); ANION GAP 11 (8-16); BLOOD UREA NITROGEN 12 MG/DL (7-18); BUN/CREATININE RATIO 15.4 (10.0-20.0); CALCIUM 9.2 MG/DL (8.5-10.1); CHLORIDE 107 MMOL/L (99-107); CREATININE 0.78 MG/DL (0.60-1.10); GLUCOSE 121 MG/DL (70-104); MAGNESIUM 1.9 MG/DL (1.5-2.4); POTASSIUM 3.7 MMOL/L (3.5-5.1); SODIUM 142 MMOL/L (135-145); eGFR > 90 ML/MIN
[2022-08-07] MEDS: aspirin 81mg, enteric-coated 1 TAB TABLET.DR PO SCH (07:41)
[2022-08-07] MEDS: gabapentin 300mg capsule PO SCH ×3 (07:41→21:08)
[2022-08-07] MEDS: atorvastatin 20mg tablet PO SCH (07:41)
[2022-08-07] MEDS: FLUoxetine 20mg capsule PO SCH ×2 (07:41→21:08)
[2022-08-07] MEDS: pantoprazole 40mg Tablet.DR PO SCH (07:41)
[2022-08-07] MEDS: lisinopril 20mg tablet PO SCH (07:42)
[2022-08-07] MEDS: K and/or MAG REPLACEMENT MC SCH ×2 (08:00→20:00)
[2022-08-07] MEDS: VANCOmycin 1250MG/NS 250ml Bag 250 ML IV SCH (08:37)
--- NOTE | 2022-08-07 08:52 | NUR ---
RUNNING 1200 VANCO EARLY DUE TO 0000 DOSE UNABLE TO INFUSE. PATIENT LOST IV ACCESS BEFORE 0000 DOSE INFUSED. PATIENT RECEIVED ONLY A FEW mL'S OF 0000 VANCO.
[2022-08-07] MEDS: piperacillin/tazo 3.375gm/50ml 50 ML IV SCH ×3 (10:27→17:22)
[2022-08-07 11:00] VITALS: BP 126/88
[2022-08-07 15:00] VITALS: BP 130/90
[2022-08-07] MEDS: LORazepam 0.5 MG tablet PO PRN (17:01)
[2022-08-07 18:00] VITALS: BP 146/96
[2022-08-07] MEDS: QUEtiapine 25mg tablet PO SCH (21:07)
[2022-08-07] MEDS ORDERED: VANCOMYCIN LEVEL IV ONE (23:30)
[2022-08-08] MEDS: normal saline 1000ml 1,000 ML IV SCH ×3 (00:45→17:00)
[2022-08-08] MEDS: VANCOmycin 1250MG/NS 250ml Bag 250 ML IV SCH ×2 (00:54→12:18)
[2022-08-08] MEDS: HYDROcodone/acetaminophen 5mg/325mg tablet PO PRN ×5 (01:13→21:21)
[2022-08-08] MEDS: LORazepam 0.5 MG tablet PO PRN ×2 (01:13→11:51)
[2022-08-08 02:00] VITALS: BP 115/58
[2022-08-08] MEDS: piperacillin/tazo 3.375gm/50ml 50 ML IV SCH ×3 (02:27→16:59)
--- NOTE | 2022-08-08 05:45 | NUR ---
I AGREE WITH ADVERTISING PHOTOGRAPHER ASSESSMENTS
[2022-08-08 06:59] LABS: BASOPHILS % (AUTO) 0.7 % (0-1); EOSINOPHILS # (AUTO) 0.3 X10'3 (0-0.9); EOSINOPHILS % (AUTO) 3.9 % (0-6); HEMATOCRIT 39.6 % (42.0-52.0); LYMPHOCYTES % (AUTO) 30.2 % (21-51); MEAN CORPUSCULAR HEMOGLOBIN 27.5 PG (27.0-31.0); MEAN CORPUSCULAR HGB CONC 32.9 g/dL (33.0-36.5); MEAN CORPUSCULAR VOLUME 83.6 FL (78-98); MEAN PLATELET VOLUME 6.3 FL (7.4-10.4); MONOCYTES # (AUTO) 0.5 X10'3 (0-0.9); MONOCYTES % (AUTO) 8.2 % (2-12); NEUTROPHILS # (AUTO) 3.7 X10'3 (1.8-7.7); PLATELET COUNT 244 X10'3 (140-440); RED BLOOD COUNT 4.74 X10'6 (4.70-6.10); RED CELL DISTRIBUTION WIDTH 19.2 % (11.5-14.5); WHITE BLOOD COUNT 6.5 X10'3 (4.5-11.0)
[2022-08-08 07:00] VITALS: BP 144/87
[2022-08-08 07:19] LABS: ALBUMIN 3.1 G/DL (3.4-5.0); ANION GAP 11 (8-16); BLOOD UREA NITROGEN 13 MG/DL (7-18); BUN/CREATININE RATIO 16.9 (10.0-20.0); CALCIUM 9.1 MG/DL (8.5-10.1); CHLORIDE 107 MMOL/L (99-107); CREATININE 0.77 MG/DL (0.60-1.10); GLUCOSE 103 MG/DL (70-104); MAGNESIUM 1.9 MG/DL (1.5-2.4); POTASSIUM 3.8 MMOL/L (3.5-5.1); SODIUM 144 MMOL/L (135-145); TOTAL CARBON DIOXIDE 25.6 MMOL/L (24-32); eGFR > 90 ML/MIN
[2022-08-08] MEDS: K and/or MAG REPLACEMENT MC SCH ×2 (08:00→20:00)
[2022-08-08] MEDS: gabapentin 300mg capsule PO SCH ×3 (08:52→21:21)
[2022-08-08] MEDS: atorvastatin 20mg tablet PO SCH (08:52)
[2022-08-08] MEDS: FLUoxetine 20mg capsule PO SCH ×2 (08:52→21:21)
[2022-08-08] MEDS: lisinopril 20mg tablet PO SCH (08:53)
[2022-08-08] MEDS: aspirin 81mg, enteric-coated 1 TAB TABLET.DR PO SCH (08:53)
[2022-08-08] MEDS: pantoprazole 40mg Tablet.DR PO SCH (08:53)
[2022-08-08 11:00] VITALS: BP 128/80
[2022-08-08] MEDS: morphine 2 MG/ML inj. syringe IV PRN (11:58)
--- NOTE | 2022-08-08 14:17 | NUR ---
PRESSURE ULCER EDUCATION: DEFINITION: A pressure ulcer is an area of skin that breaks down when you stay in one position too long. The constant pressure against the skin reduces the blood flow to that area and the affected tissue dies. CAUSES: "Being bedridden or in a wheelchair "Fragile skin "Having a chronic condition, such as diabetes or vascular disease "Inability to move certain parts of your body without assistance "Older age "Incontinence of urine or stool SYMPTOMS: "A reddened area that DOES NOT turn white when pressed on - this can be the beginning of a pressure ulcer "A blister, deep sore or a crater - these can be advanced pressure ulcers FIRST AID: "Relieve the pressure on this area "Keep the area clean and dry "Call your primary doctor if you see any of the above symptoms "DO NOT massage the area "DO NOT use a donut shaped or ring shaped pillow- these actually interfere with the blood flow and cause complications PREVENTION: "Check for pressure ulcers everyday "Change position at least every two hours to relieve pressure "Use items that help relieve pressure- pillows, sheepskin, foam padding, and powders. "Keep skin clean and dry "Eat healthy well balanced meals "Exercise daily IF YOU SEE ANY OF THESE SYMPTOMS WHILE IN THE HOSPITAL - TELL YOUR NURSE IMMEDIATELY. IF YOU SEE ANY OF THESE SYMPTOMS WHILE AT HOME OR HAVE ANY QUESTIONS OR CONCERNS ABOUT PRESSURE ULCERS - CALL YOUR PRIMARY DOCTOR IMMEDIATELY. Addendum: 08/08/22 at 1417 by Haley King RN Amended: Links added.
[2022-08-08 15:00] VITALS: BP 126/78
[2022-08-08 18:00] VITALS: BP 136/84
[2022-08-08] MEDS: QUEtiapine 25mg tablet PO SCH (21:22)
[2022-08-09] MEDS: VANCOmycin 1250MG/NS 250ml Bag 250 ML IV SCH (00:55)
[2022-08-09] MEDS: LORazepam 0.5 MG tablet PO PRN (02:35)
[2022-08-09] MEDS: HYDROcodone/acetaminophen 5mg/325mg tablet PO PRN ×3 (02:35→11:10)
[2022-08-09] MEDS: piperacillin/tazo 3.375gm/50ml 50 ML IV SCH ×2 (02:50→08:15)
--- NOTE | 2022-08-09 06:15 | NUR ---
Patient in room PCU 3012. I have received report from Gregory SHEA and had the opportunity to ask questions and assume patient care.
[2022-08-09] MEDS: normal saline 1000ml 1,000 ML IV SCH (06:45)
[2022-08-09 07:00] VITALS: BP 144/72
[2022-08-09 07:40] LABS: BASOPHILS % (AUTO) 0.4 % (0-1); EOSINOPHILS # (AUTO) 0.3 X10'3 (0-0.9); EOSINOPHILS % (AUTO) 4.8 % (0-6); HEMATOCRIT 39.1 % (42.0-52.0); HEMOGLOBIN 12.9 g/dl (14.0-17.9); LYMPHOCYTES # (AUTO) 1.9 X10'3 (1.1-4.8); LYMPHOCYTES % (AUTO) 28.6 % (21-51); MEAN CORPUSCULAR HEMOGLOBIN 27.6 PG (27.0-31.0); MEAN CORPUSCULAR HGB CONC 32.9 g/dL (33.0-36.5); MEAN CORPUSCULAR VOLUME 83.9 FL (78-98); MEAN PLATELET VOLUME 6.3 FL (7.4-10.4); MONOCYTES # (AUTO) 0.7 X10'3 (0-0.9); MONOCYTES % (AUTO) 10.2 % (2-12); NEUTROPHILS # (AUTO) 3.8 X10'3 (1.8-7.7); PLATELET COUNT 245 X10'3 (140-440); RED BLOOD COUNT 4.66 X10'6 (4.70-6.10); RED CELL DISTRIBUTION WIDTH 18.8 % (11.5-14.5); WHITE BLOOD COUNT 6.7 X10'3 (4.5-11.0)
[2022-08-09 07:45] LABS: ALBUMIN 3.1 G/DL (3.4-5.0); ANION GAP 7 (8-16); BLOOD UREA NITROGEN 19 MG/DL (7-18); CALCIUM 8.9 MG/DL (8.5-10.1); CHLORIDE 107 MMOL/L (99-107); CREATININE 0.73 MG/DL (0.60-1.10); GLUCOSE 93 MG/DL (70-104); POTASSIUM 3.8 MMOL/L (3.5-5.1); SODIUM 144 MMOL/L (135-145); TOTAL CARBON DIOXIDE 29.9 MMOL/L (24-32); eGFR > 90 ML/MIN
[2022-08-09] MEDS: K and/or MAG REPLACEMENT MC SCH (08:00)
[2022-08-09] MEDS: atorvastatin 20mg tablet PO SCH (08:00)
[2022-08-09] MEDS: FLUoxetine 20mg capsule PO SCH (08:23)
[2022-08-09] MEDS: aspirin 81mg, enteric-coated 1 TAB TABLET.DR PO SCH (08:23)
[2022-08-09] MEDS: gabapentin 300mg capsule PO SCH (08:23)
[2022-08-09 08:24] VITALS: BP_SYST 144
[2022-08-09] MEDS: pantoprazole 40mg Tablet.DR PO SCH (08:24)
[2022-08-09] MEDS: lisinopril 20mg tablet PO SCH (08:24)
[2022-08-09] MEDS: morphine 2 MG/ML inj. syringe IV PRN (08:40)
[2022-08-09] MEDS ORDERED: SULF1TAB49 PO (10:55)
[2022-08-09] MEDS ORDERED: LORA-268 MT (10:55)
--- NOTE | 2022-08-09 12:50 | NUR ---
Patient discharged home with all belongings and discharge instructions. IV removed. Escorted out via wheel chair and left via private vehicle.
[2022-08-09] MEDS ORDERED: VANCOMYCIN LEVEL IV ONE (23:30)
== END 2022-08-09 13:00 | disposition home health service (06) | DRG 720 ==
LOC: ER 18:54 → ED HOLD 08-05 12:47 → PCU 3S 08-05 17:43
PROVIDERS: ADMIT Internal Medicine; ATTEND Internal Medicine
PROC: BW211ZZ Computerized Tomography (CT Scan) of Abdomen and Pelvis using Low Osmolar Contrast (ICD-10-PCS; principal; 2022-08-05)
DX: A41.9 Sepsis, unspecified organism (principal); J44.1 Chronic obstructive pulmonary disease with (acute) exacerbation; R65.20 Severe sepsis without septic shock; L03.311 Cellulitis of abdominal wall; I10 Essential (primary) hypertension; K21.9 Gastro-esophageal reflux disease without esophagitis; F32.A Depression, unspecified; Z20.822 Contact with and (suspected) exposure to COVID-19; S30.92XA Unspecified superficial injury of abdominal wall, initial encounter; X58.XXXA Exposure to other specified factors, initial encounter; Z98.1 Arthrodesis status; Z82.5 Family history of asthma and other chronic lower respiratory diseases; Z80.1 Family history of malignant neoplasm of trachea, bronchus and lung; Z79.899 Other long term (current) drug therapy; Z79.82 Long term (current) use of aspirin; Y92.89 Other specified places as the place of occurrence of the external cause; Y93.89 Activity, other specified; Y99.8 Other external cause status
CPT/HCPCS: 36415; 71045; 74176; 74177; 80048; 80053; 80202; 81001; 83605; 83735; 84145; 85008; 85025; 87040; 87081; 87811; 94640; 94760; 96365; 96375; 99285; A4649; A6196; A6258; A6449; C1751; G0378; J2060; J2270; J2405; J2543; J2765; J3370; J3490; J7030; J7040; Q9967

== ENCOUNTER 2023-06-14 20:33 | Emergency (ER) | payer MEDICAID ==
[~2023-06-14 20:33] MED LIST changes: -ALBU8.5H17 INH; +ATOR20TA66 PO; -BUDE10.22 INH; +GABA300C PO; +ONDA4TAB12 PO
[2023-06-14 20:43] VITALS: TEMP 97.8
[2023-06-14 21:16] LABS: BASOPHILS # (AUTO) 0.1 X10'3 (0-0.2); BASOPHILS % (AUTO) 0.4 % (0-1); EOSINOPHILS # (AUTO) 0.1 X10'3 (0-0.9); EOSINOPHILS % (AUTO) 0.4 % (0-6); HEMATOCRIT 47.2 % (42.0-52.0); HEMOGLOBIN 15.9 g/dl (14.0-17.9); LYMPHOCYTES # (AUTO) 1.5 X10'3 (1.1-4.8); LYMPHOCYTES % (AUTO) 8.7 % (21-51); MEAN CORPUSCULAR HEMOGLOBIN 31.3 PG (27.0-31.0); MEAN CORPUSCULAR HGB CONC 33.6 g/dL (33.0-36.5); MEAN PLATELET VOLUME 6.3 FL (7.4-10.4); MONOCYTES # (AUTO) 1.5 X10'3 (0-0.9); MONOCYTES % (AUTO) 8.8 % (2-12); NEUTROPHILS # (AUTO) 14.4 X10'3 (1.8-7.7); NEUTROPHILS % (AUTO) 81.7 % (42-75); PLATELET COUNT 332 X10'3 (140-440); RED BLOOD COUNT 5.07 X10'6 (4.70-6.10); RED CELL DISTRIBUTION WIDTH 14.3 % (11.5-14.5); WHITE BLOOD COUNT 17.6 X10'3 (4.5-11.0)
[2023-06-14] MEDS: normal saline 1000ML IV soln IVB ONE (21:18)
[2023-06-14 21:28] LABS: ALANINE AMINOTRANSFERASE 34 U/L (12-78); ALBUMIN 3.9 G/DL (3.4-5.0); ALBUMIN/GLOBULIN RATIO 1.2 (1.1-1.5); ALKALINE PHOSPHATASE 64 IU/L (46-116); ANION GAP 15 (8-16); ASPARTATE AMINO TRANSFERASE 34 U/L (10-37); BILIRUBIN,TOTAL 1.1 MG/DL (0.1-1.0); BLOOD UREA NITROGEN 25 MG/DL (7-18); BUN/CREATININE RATIO 18.7 (10.0-20.0); CALCIUM 9.4 MG/DL (8.5-10.1); CHLORIDE 99 MMOL/L (99-107); CREATININE 1.34 MG/DL (0.60-1.10); GLUCOSE 150 MG/DL (70-104); POTASSIUM 4.2 MMOL/L (3.5-5.1); SODIUM 138 MMOL/L (135-145); TOTAL CARBON DIOXIDE 24.1 MMOL/L (24-32); TOTAL PROTEIN 7.1 G/DL (6.4-8.2); eGFR 54 ML/MIN
[2023-06-14] MEDS: ondansetron/PF 4mg/2ml inj IV ONE (21:31)
[2023-06-14 21:36] LABS: ETHANOL < 10 MG/DL (<10); LIPASE 20 U/L (16-77); PRO BRAIN NATRIURETIC PEPTIDE 65 PG/ML (0-125)
[2023-06-14] MEDS ORDERED: iohexol 300mg/ml 100ml inj. ONE (21:59)
[2023-06-14 22:45] LABS: URINE AMPHETAMINE SCREEN NEGATIVE (Neg); URINE BARBITUATE SCREEN NEGATIVE (Neg); URINE BENZODIAZEPINES SCREEN NEGATIVE (Neg); URINE CANNABINOID SCREEN POSITIVE (Neg); URINE COCAINE SCREEN NEGATIVE (Neg); URINE METHADONE SCREEN NEGATIVE (Neg); URINE OPIATE SCREEN POSITIVE (Neg); URINE PHENCYCLIDINE SCREEN NEGATIVE (Neg)
[2023-06-14] MEDS ORDERED: ONDA8TAB13 PO (23:09)
[2023-06-14] MEDS ORDERED: PANT-47 PO (23:59)
[2023-06-15] MEDS: mag hydrox/Alum hydrox/simeth 30ml oral suspension PO ONE (00:17)
[2023-06-15] MEDS: pantoprazole 40 MG vial IV ONE (00:18)
[2023-06-15] MEDS: metoclopramide 5 mg/ml inj IV ONE (00:18)
[2023-06-15] MEDS: proCHLORperazine 10 MG/2 ml inj IV ONE (00:19)
[2023-06-15] MEDS: LIDOcaine 2% Viscous 15ml cup MM ONE (00:19)
[2023-06-15] MEDS: famotidine/PF 10 mg/ml inj IV ONE (00:19)
[2023-06-15 01:04] VITALS: BP 118/82; PULSE 97; RESP 16; O2SAT 97
== END 2023-06-15 01:06 | disposition home or self-care (01) ==
LOC: ER 20:34
DX: R91.1 Solitary pulmonary nodule (principal); R11.2 Nausea with vomiting, unspecified; Z87.891 Personal history of nicotine dependence; Z79.899 Other long term (current) drug therapy; J44.9 Chronic obstructive pulmonary disease, unspecified; F12.90 Cannabis use, unspecified, uncomplicated
CPT/HCPCS: 71045; 74177; 80053; 80305; 80320; 83690; 83880; 84484; 85025; 93005; 96361; 96374; 96375; 99285; C9113; J0780; J2405; J2765; J3490; J7030; Q9967

== ENCOUNTER 2023-08-08 07:14 | Inpatient (IN) | payer MEDICAID ==
[2023-08-08] VITALS (31 sets, daily range): BP systolic 86–115; BP diastolic 42–78; PULSE 95–132; RESP 16–24; O2SAT 93–97
[~2023-08-08] VITALS: Ht 165.1 cm; Wt 80.8 kg
[~2023-08-08 07:14] MED LIST changes: +ONDA8TAB13 PO; +PANT-47 PO
[2023-08-08] MEDS ORDERED: succinylcholine 20mg/ml inj IV ONE (07:18)
[2023-08-08] MEDS ORDERED: fentaNYL 50mcg/ml PF inj. 2,500 MCG in normal saline 250ml IV soln 200 ML IV SCH ×2 (07:45→07:51)
[2023-08-08] MEDS ORDERED: midazolam 100mg in NS 100ml 100 ML IV PRN (07:45)
[2023-08-08] MEDS ORDERED: epiNEPHrine 0.1mg/ml 10ml syringe ONE (08:00)
[2023-08-08] MEDS ORDERED: rocuronium 10mg/ml inj IV ONE (08:00)
[2023-08-08 08:08] LABS: BASOPHILS % (AUTO) 0.1 % (0-1); EOSINOPHILS % (AUTO) 0.2 % (0-6); HEMATOCRIT 39.3 % (42.0-52.0); HEMOGLOBIN 13.2 g/dl (14.0-17.9); LYMPHOCYTES # (AUTO) 0.7 X10'3 (1.1-4.8); MEAN CORPUSCULAR HEMOGLOBIN 32.8 PG (27.0-31.0); MEAN CORPUSCULAR HGB CONC 33.6 g/dL (33.0-36.5); MEAN CORPUSCULAR VOLUME 97.5 FL (78-98); MEAN PLATELET VOLUME 6.8 FL (7.4-10.4); MONOCYTES # (AUTO) 0.3 X10'3 (0-0.9); MONOCYTES % (AUTO) 1.7 % (2-12); NEUTROPHILS # (AUTO) 15.2 X10'3 (1.8-7.7); PLATELET COUNT 454 X10'3 (140-440); RED BLOOD COUNT 4.03 X10'6 (4.70-6.10); RED CELL DISTRIBUTION WIDTH 14.3 % (11.5-14.5); WHITE BLOOD COUNT 16.2 X10'3 (4.5-11.0)
[2023-08-08 08:10] LABS: ABG BASE EXCESS -8.6 mmol/L (-2.0-2.0); ABG HCO3 20.1 mmol/L (22.0-26.0); ABG OXYGEN SATURATION 98.1 % (94-97); ABG PCO2 (T) 55.4 mmHg (35.0-48.0); ABG PH (T) 7.178 (7.340-7.440); ABG PO2 (T) 140.5 mmHg (75.0-100.0); ALLEN'S TEST POSITIVE; FCOHb 0.3 % (0.0-3.9); FHHb 1.9 % (0.0-5.0); FMetHb 0.4 % (0.0-1.5); FO2Hb 97.4 % (94-97); MODE VENT - AC/PRVC; PATIENT TEMPERATURE 37.2; PEEP 8 cm H2O; RESPIRATORY RATE 16 b/min; TIDAL VOLUME 475 mL; TOTAL HEMOGLOBIN 13.3 G/dl (14.0-17.9)
[2023-08-08] MEDS: albuterol 2.5 MG/3 ML nebule CONTNEB PRN (08:16)
[2023-08-08] MEDS: methylPREDNISolone sod succ 125mg/2ml vial IV ONE (08:39)
[2023-08-08] MEDS: fentaNYL/PF 50MCG/1 ML 2ML syringe IV ONE (08:40)
[2023-08-08] MEDS: NORepinephrine 8mg/ 250ml NS 250 ML IV SCH (08:40)
[2023-08-08] MEDS: MIDAZOLAM IN NACL,ISO-OSMOT/PF 100 ML IV PRN (08:41)
[2023-08-08 08:52] LABS: ALBUMIN 2.1 G/DL (3.4-5.0); ANION GAP 22 (8-16); BLOOD UREA NITROGEN 35 MG/DL (7-18); CALCIUM 8.4 MG/DL (8.5-10.1); CHLORIDE 97 MMOL/L (99-107); CREATININE 3.51 MG/DL (0.60-1.10); GLUCOSE 169 MG/DL (70-104); SODIUM 139 MMOL/L (135-145); TOTAL CARBON DIOXIDE 20.5 MMOL/L (24-32); eCRCL 19 ML/MIN; eGFR 18 ML/MIN
[2023-08-08] MEDS: FENTANYL CITRATE/D5W/PF 100 ML IV SCH (08:53)
[2023-08-08] MEDS: acetaminophen 1,000mg/100ml IV 100 ML IV SCH (09:07)
[2023-08-08] MEDS ORDERED: morphine 4 MG/ML inj SYRINge IV PRN (09:15)
[2023-08-08] MEDS ORDERED: morphine 2 MG/ML inj. syringe IV PRN (09:15)
[2023-08-08] MEDS ORDERED: magnesium hydroxide 30ml (MOM) UD suspension PO PRN (09:15)
[2023-08-08] MEDS ORDERED: acetaminophen 325mg tablet PO PRN (09:15)
[2023-08-08] MEDS: normal saline 1000ml 1,000 ML IV SCH (09:21)
[2023-08-08 11:19] LABS: ISTAT K 5.2 mmol/L (3.5-5.1)
[2023-08-08 11:20] LABS: ISTAT CREATININE 2.9 mg/dL (0.8-1.3)
[2023-08-08 11:21] LABS: ISTAT IONIZED CALCIUM 1.17 mmol/L (1.03-1.32); POC BUN/CREATININE RATIO 15.2 (5.4-32.0)
[2023-08-08] MEDS: ringers solution, lacted 1,000 ML IV ONE (11:37)
[2023-08-08] MEDS: methylPREDNISolone sod succ 125mg/2ml vial IV SCH (13:37)
[2023-08-08] MEDS: ipratropium/albuterol 3ml nebule NEB SCH (13:37)
[2023-08-08] MEDS: normal saline 1000ml 1,000 ML IV ONE ×2 (13:38)
[2023-08-08 14:37] LABS: BILIRUBIN,URINE NEGATIVE (Neg); CLARITY,URINE CLOUDY (Clear); COLOR,URINE YELLOW (Yellow); GLUCOSE, URINE NEGATIVE (Neg); KETONES,URINE TRACE mg/dl (Neg); LEUKOCYTE ESTERASE ,URINE SMALL (Neg); NITRITES, URINE NEGATIVE (Neg); OCCULT BLOOD,URINE LARGE (Neg); PH,URINE 5.5 (4.8-8.0); PROTEIN,URINE 30 mg/dl (Neg); UROBILINOGEN,URINE 0.2 E.U/dL (0.2-1.0)
[2023-08-08 14:41] LABS: UA COLLECTION TYPE NON-SPECIFIED
[2023-08-08 15:05] LABS: SPERM MANY /HPF (NEGATIVE); SQUAMOUS EPITHELIAL CELL,UR FEW /LPF (FEW)
[2023-08-08 15:06] LABS: WBC,URINE TNTC /HPF (0-4)
[2023-08-08 15:11] LABS: BACTERIA,URINE FEW /HPF (Neg); WBC CLUMPS,URINE FEW /HPF (NEGATIVE)
[2023-08-08] MEDS: acetaminophen 1,000mg/100ml IV 100 ML IV PRN (17:24)
[2023-08-08 19:16] LABS: BASOPHILS % (AUTO) 0.5 % (0-1); EOSINOPHILS % (AUTO) 0 % (0-6); HEMATOCRIT 39.7 % (42.0-52.0); HEMOGLOBIN 13.3 g/dl (14.0-17.9); LYMPHOCYTES # (AUTO) 0.1 X10'3 (1.1-4.8); LYMPHOCYTES % (AUTO) 0.9 % (21-51); MEAN CORPUSCULAR HEMOGLOBIN 32.8 PG (27.0-31.0); MEAN CORPUSCULAR HGB CONC 33.5 g/dL (33.0-36.5); MEAN CORPUSCULAR VOLUME 97.7 FL (78-98); MEAN PLATELET VOLUME 6.7 FL (7.4-10.4); MONOCYTES # (AUTO) 0.3 X10'3 (0-0.9); MONOCYTES % (AUTO) 3.1 % (2-12); NEUTROPHILS # (AUTO) 9.2 X10'3 (1.8-7.7); NEUTROPHILS % (AUTO) 95.5 % (42-75); PLATELET COUNT 359 X10'3 (140-440); RED BLOOD COUNT 4.07 X10'6 (4.70-6.10); RED CELL DISTRIBUTION WIDTH 14.4 % (11.5-14.5); WHITE BLOOD COUNT 9.6 X10'3 (4.5-11.0)
[2023-08-08 19:30] LABS: APTT 27 SECONDS (22-32); INR 1.1 INR; PROTHROMBIN TIME 11.9 SECONDS (9.0-12.0)
[2023-08-08 19:35] LABS: ALANINE AMINOTRANSFERASE 35 U/L (12-78); ALBUMIN 1.7 G/DL (3.4-5.0); ALBUMIN/GLOBULIN RATIO 0.4 (1.1-1.5); ALKALINE PHOSPHATASE 96 IU/L (46-116); ANION GAP 9 (8-16); ASPARTATE AMINO TRANSFERASE 59 U/L (10-37); BILIRUBIN,TOTAL 0.6 MG/DL (0.1-1.0); BLOOD UREA NITROGEN 37 MG/DL (7-18); BUN/CREATININE RATIO 12.3 (10.0-20.0); CALCIUM 7.1 MG/DL (8.5-10.1); CHLORIDE 105 MMOL/L (99-107); CREATININE 3.01 MG/DL (0.60-1.10); GLUCOSE 179 MG/DL (70-104); MAGNESIUM 1.3 MG/DL (1.5-2.4); PHOSPHORUS 4.8 MG/DL (2.3-4.5); SODIUM 137 MMOL/L (135-145); TOTAL CARBON DIOXIDE 22.9 MMOL/L (24-32); TOTAL PROTEIN 5.5 G/DL (6.4-8.2); eCRCL 22 ML/MIN; eGFR 21 ML/MIN
[2023-08-08] MEDS ORDERED: potassium Cl 40MEQ/270ML bag 270 ML IV PRN (20:15)
[2023-08-08] MEDS: K and/or MAG REPLACEMENT MC SCH (20:15)
[2023-08-08] MEDS ORDERED: potassium Cl 20 mEq SR tablet PO PRN ×2 (20:15)
[2023-08-08] MEDS: famotidine/PF 10 mg/ml inj IV SCH (20:55)
[2023-08-08] MEDS ORDERED: piperacillin/tazo 3.375gm/50ml 50 ML IV SCH (21:00)
[2023-08-08] MEDS: magnesium 2GM in 50ml NS 50 ML IV PRN (21:00)
[2023-08-08] MEDS: VANCOMYCIN 750MG IV in NS 250 ML IV SCH (21:45)
[2023-08-08] MEDS: FENTANYL-0.9 % NACL/PF 100 ML IV SCH (21:50)
[2023-08-08] MEDS: magnesium 4gm in 100ml NS 100 ML IV PRN (23:04)
[2023-08-08] MEDS: piperacillin/tazo 3.375gm/50ml 50 ML IV SCH (23:07)
[2023-08-09] VITALS (40 sets, daily range): BP systolic 87–117; BP diastolic 54–81; PULSE 84–120; RESP 15–26; O2SAT 89–98
[2023-08-09 01:29] LABS: ABG BASE EXCESS -10.2 mmol/L (-2.0-2.0); ABG OXYGEN SATURATION 96.5 % (94-97); ABG PCO2 (T) 39.8 mmHg (35.0-48.0); ABG PH (T) 7.232 (7.340-7.440); ABG PO2 (T) 97.3 mmHg (75.0-100.0); ALLEN'S TEST Modified; FCOHb 0.2 % (0.0-3.9); FHHb 3.5 % (0.0-5.0); FMetHb 1.1 % (0.0-1.5); FO2Hb 95.2 % (94-97); MODE PRVC/ AC; PATIENT TEMPERATURE 38.9; PEEP 8 cm H2O; RESPIRATORY RATE 16 b/min; TIDAL VOLUME 550 mL; TOTAL HEMOGLOBIN 15.1 G/dl (14.0-17.9)
[2023-08-09 02:31] LABS: MEAN PLATELET VOLUME 6.9 FL (7.4-10.4); RED CELL DISTRIBUTION WIDTH 14.5 % (11.5-14.5)
[2023-08-09 02:33] LABS: HEMATOCRIT 43.7 % (42.0-52.0); HEMOGLOBIN 14.5 g/dl (14.0-17.9); MEAN CORPUSCULAR HEMOGLOBIN 32.5 PG (27.0-31.0); MEAN CORPUSCULAR HGB CONC 33.2 g/dL (33.0-36.5); PLATELET COUNT 340 X10'3 (140-440); RED BLOOD COUNT 4.46 X10'6 (4.70-6.10); WHITE BLOOD COUNT 10.5 X10'3 (4.5-11.0)
[2023-08-09 02:43] LABS: ALANINE AMINOTRANSFERASE 42 U/L (12-78); ALBUMIN 1.6 G/DL (3.4-5.0); ALBUMIN/GLOBULIN RATIO 0.4 (1.1-1.5); ALKALINE PHOSPHATASE 98 IU/L (46-116); ANION GAP 11 (8-16); ASPARTATE AMINO TRANSFERASE 94 U/L (10-37); BILIRUBIN,TOTAL 0.5 MG/DL (0.1-1.0); BLOOD UREA NITROGEN 38 MG/DL (7-18); BUN/CREATININE RATIO 15.1 (10.0-20.0); CALCIUM 7.1 MG/DL (8.5-10.1); CHLORIDE 106 MMOL/L (99-107); CREATININE 2.52 MG/DL (0.60-1.10); GLUCOSE 179 MG/DL (70-104); MAGNESIUM 3.6 MG/DL (1.5-2.4); PHOSPHORUS 7.3 MG/DL (2.3-4.5); POTASSIUM 5.6 MMOL/L (3.5-5.1); SODIUM 137 MMOL/L (135-145); TOTAL CARBON DIOXIDE 19.6 MMOL/L (24-32); TOTAL PROTEIN 5.9 G/DL (6.4-8.2); eCRCL 26 ML/MIN; eGFR 26 ML/MIN
[2023-08-09 03:38] LABS: TOTAL CELLS COUNTED 100
[2023-08-09 03:39] LABS: PLATELET ESTIMATE NORMAL
[2023-08-09 04:30] LABS: ABG BASE EXCESS -15.1 mmol/L (-2.0-2.0); ABG OXYGEN SATURATION 94.1 % (94-97); ABG PCO2 (T) 44.5 mmHg (35.0-48.0); ABG PH (T) 7.116 (7.340-7.440); ABG PO2 (T) 80.9 mmHg (75.0-100.0); ALLEN'S TEST Modified; FCOHb 0.2 % (0.0-3.9); FHHb 5.9 % (0.0-5.0); FMetHb 0.6 % (0.0-1.5); FO2Hb 93.3 % (94-97); MODE AC/PRVC; PEEP 12 cm H2O; RESPIRATORY RATE 16 b/min; TIDAL VOLUME 550 mL; TOTAL HEMOGLOBIN 15.2 G/dl (14.0-17.9)
[2023-08-09] MEDS: epiNEPHrine 0.1mg/ml 10ml syringe ONE (04:37)
[2023-08-09] MEDS: epiNEPHrine 1 mg/ml inj IV STA ×2 (04:38)
[2023-08-09] MEDS: rocuronium 10mg/ml inj IV ONE (04:39)
[2023-08-09] MEDS: NORepinephrine inj. 32 MG in normal saline 250ml IV soln 218 ML IV SCH (05:01)
[2023-08-09 05:03] LABS: CKMB RELATIVE INDEX 0.3 RATIO (0-2.5); CREATINE KINASE 2754 U/L (39-308)
[2023-08-09] MEDS: CISatracurium besylate inj. 100 MG in normal saline 100ml IV soln 90 ML IV PRN (05:13)
[2023-08-09 06:32] LABS: D-DIMER 21.31 MG/L FEU (0-0.50)
[2023-08-09] MEDS: enoxaparin 40mg/0.4ml syringe SUBCUT SCH (09:10)
[2023-08-09] MEDS ORDERED: heparin 10,000 units/1 ML INJ IV PRN (10:40)
[2023-08-09] MEDS ORDERED: heparin 10,000 units/1 ML INJ IV ONE (10:40)
[2023-08-09] MEDS: MESSAGE TO NURSING IV ONE ×2 (11:00→19:38)
[2023-08-09] MEDS: heparin 25,000 UNIT/250ml bag 250 ML IV PRN (11:18)
[2023-08-09 11:29] LABS: APTT 36 SECONDS (22-32)
[2023-08-09] MEDS ORDERED: acetaminophen 325mg tablet OGT PRN (11:36)
[2023-08-09] MEDS ORDERED: magnesium hydroxide 30ml (MOM) UD suspension OGT PRN (11:37)
[2023-08-09] MEDS ORDERED: POTASSIUM BICARB 20meq eff tab 20 MEQ TABLET.EFF OGT PRN ×2 (11:39→11:41)
[2023-08-09] MEDS: ringers solution, lacted 1,000 ML IV ONE ×2 (17:40→18:41)
[2023-08-09] MEDS ORDERED: vasopressin inj. 40 UNIT in dextrose 5%-water 50ml 38 ML IV SCH (19:30)
[2023-08-09] MEDS: vasopressin inj. 40 UNIT in normal saline 50ml IV soln 38 ML IV SCH (20:07)
[2023-08-09] MEDS: famotidine/PF 10 mg/ml inj IV SCH (20:16)
[2023-08-10] VITALS (34 sets, daily range): BP systolic 96–132; BP diastolic 41–81; PULSE 75–107; RESP 10–20; O2SAT 74–98
[2023-08-10 02:30] LABS: BASOPHILS % (AUTO) 0.1 % (0-1); HEMOGLOBIN 13.6 g/dl (14.0-17.9); LYMPHOCYTES # (AUTO) 0.2 X10'3 (1.1-4.8); MEAN CORPUSCULAR HGB CONC 32.9 g/dL (33.0-36.5); MONOCYTES # (AUTO) 0.2 X10'3 (0-0.9)
[2023-08-10 02:31] LABS: EOSINOPHILS % (AUTO) 0.2 % (0-6); HEMATOCRIT 41.3 % (42.0-52.0); LYMPHOCYTES % (AUTO) 0.8 % (21-51); MEAN CORPUSCULAR HEMOGLOBIN 32.3 PG (27.0-31.0); MEAN CORPUSCULAR VOLUME 98.1 FL (78-98); MEAN PLATELET VOLUME 8.1 FL (7.4-10.4); MONOCYTES % (AUTO) 0.9 % (2-12); NEUTROPHILS # (AUTO) 21.8 X10'3 (1.8-7.7); PLATELET COUNT 115 X10'3 (140-440); RED BLOOD COUNT 4.21 X10'6 (4.70-6.10); RED CELL DISTRIBUTION WIDTH 15.4 % (11.5-14.5); WHITE BLOOD COUNT 22.2 X10'3 (4.5-11.0)
[2023-08-10 02:38] LABS: ALANINE AMINOTRANSFERASE 47 U/L (12-78); ALBUMIN 1.2 G/DL (3.4-5.0); ALBUMIN/GLOBULIN RATIO 0.3 (1.1-1.5); ALKALINE PHOSPHATASE 93 IU/L (46-116); ANION GAP 16 (8-16); ASPARTATE AMINO TRANSFERASE 84 U/L (10-37); BILIRUBIN,TOTAL 0.6 MG/DL (0.1-1.0); BLOOD UREA NITROGEN 67 MG/DL (7-18); BUN/CREATININE RATIO 19.5 (10.0-20.0); CALCIUM 6.5 MG/DL (8.5-10.1); CHLORIDE 106 MMOL/L (99-107); CREATININE 3.44 MG/DL (0.60-1.10); GLUCOSE 165 MG/DL (70-104); MAGNESIUM 2.6 MG/DL (1.5-2.4); PHOSPHORUS 8.9 MG/DL (2.3-4.5); SODIUM 138 MMOL/L (135-145); TOTAL CARBON DIOXIDE 16.3 MMOL/L (24-32); TOTAL PROTEIN 5.1 G/DL (6.4-8.2); eCRCL 19 ML/MIN; eGFR 18 ML/MIN
[2023-08-10 02:41] LABS: POTASSIUM 6.6 MMOL/L (3.5-5.1)
[2023-08-10 03:11] LABS: BURR CELLS FEW; PLATELET ESTIMATE DECREASED; TOTAL CELLS COUNTED 100; TOXIC GRANULATION 1+; TOXIC VACUOLATION 1+
[2023-08-10] MEDS: MESSAGE TO NURSING IV ONE ×3 (03:14→16:17)
[2023-08-10 03:37] LABS: ABG BASE EXCESS -13.4 mmol/L (-2.0-2.0); ABG HCO3 13.5 mmol/L (22.0-26.0); ABG PCO2 (T) 36.8 mmHg (35.0-48.0); ABG PO2 (T) 153.3 mmHg (75.0-100.0); FCOHb 0.2 % (0.0-3.9); FMetHb 0.2 % (0.0-1.5); FO2Hb 98.6 % (94-97); MODE AC/PRVC; PATIENT TEMPERATURE 38.2; PEEP 12 cm H2O; RESPIRATORY RATE 16 b/min; TIDAL VOLUME 550 mL; TOTAL HEMOGLOBIN 14.3 G/dl (14.0-17.9)
[2023-08-10] MEDS: CALCIUM GLUC 1gm/50ml NACL,iso 50 ML IV ONE (05:13)
[2023-08-10] MEDS: dextrose 50%-water 50ml dispensing syringe IV ONE (05:13)
[2023-08-10] MEDS: insulin regular, human U-100 3ml vial - multi-dose IV ONE (05:15)
[2023-08-10] MEDS: sodium bicarbonate 1meq/ml inj 150 ML in dextrose 5%-water 1,000 ML IV SCH (07:07)
[2023-08-10 08:34] LABS: ALBUMIN 1.2 G/DL (3.4-5.0); ANION GAP 16 (8-16); BLOOD UREA NITROGEN 74 MG/DL (7-18); BUN/CREATININE RATIO 19.3 (10.0-20.0); CALCIUM 6.7 MG/DL (8.5-10.1); CHLORIDE 105 MMOL/L (99-107); CREATININE 3.84 MG/DL (0.60-1.10); GLUCOSE 154 MG/DL (70-104); MAGNESIUM 2.8 MG/DL (1.5-2.4); PHOSPHORUS 8.9 MG/DL (2.3-4.5); SODIUM 135 MMOL/L (135-145); eCRCL 17 ML/MIN; eGFR 16 ML/MIN
[2023-08-10 08:42] LABS: POTASSIUM 6.6 MMOL/L (3.5-5.1)
[2023-08-10] MEDS ORDERED: LORazepam 2 mg/ml vial IV PRN (15:45)
[2023-08-10] MEDS ORDERED: UNABLE TO OBTAIN (16:49)
[2023-08-10] MEDS: morphine 10mg/ml inj. IV PRN (21:38)
[2023-08-10] MEDS: diazepam inj 5 MG/ML inj. IV PRN (23:22)
[2023-08-11] VITALS (8 sets, daily range): BP systolic 97–102; BP diastolic 40–74; PULSE 93–115; RESP 15–24; TEMP 97.3–98.6; O2SAT 83–94
[2023-08-11] MEDS ORDERED: morphine ORAL 5MG/0.25 ML (Conc. morphine) oral syringe PO PRN (14:30)
[2023-08-11] MEDS: morphine 4 MG/ML inj SYRINge IV PRN (14:34)
[2023-08-11] MEDS: scopolamine 1MG/72H patch 1 PATCH PATCH.TD.3 TD SCH (15:21)
[2023-08-11] MEDS: diazepam inj 5 MG/ML inj. IV PRN (15:33)
[2023-08-12 09:35] VITALS: RESP 24
== END 2023-08-12 12:45 | DRG 720 ==
LOC: ER 07:14 → ED HOLD 09:19 → CICU 2S 10:15 → ORTHO 4S 08-11 00:42
PROVIDERS: ADMIT Internal Medicine Critical Care Medicine; ATTEND Internal Medicine Critical Care Medicine
PROC: 5A12012 Performance of Cardiac Output, Single, Manual (ICD-10-PCS; principal; 2023-08-08)
PROC: 5A1945Z Respiratory Ventilation, 24-96 Consecutive Hours (ICD-10-PCS; 2023-08-08)
PROC: 0BH17EZ Insertion of Endotracheal Airway into Trachea, Via Natural or Artificial Opening (ICD-10-PCS; 2023-08-08)
PROC: 02HV33Z Insertion of Infusion Device into Superior Vena Cava, Percutaneous Approach (ICD-10-PCS; 2023-08-08)
DX: A41.9 Sepsis, unspecified organism (principal); I26.99 Other pulmonary embolism without acute cor pulmonale; I46.9 Cardiac arrest, cause unspecified; J96.01 Acute respiratory failure with hypoxia; E83.39 Other disorders of phosphorus metabolism; M62.82 Rhabdomyolysis; G93.1 Anoxic brain damage, not elsewhere classified; J44.1 Chronic obstructive pulmonary disease with (acute) exacerbation; M47.9 Spondylosis, unspecified; E87.5 Hyperkalemia; N17.9 Acute kidney failure, unspecified; Z85.118 Personal history of other malignant neoplasm of bronchus and lung; Z80.1 Family history of malignant neoplasm of trachea, bronchus and lung; Z82.5 Family history of asthma and other chronic lower respiratory diseases; Z51.5 Encounter for palliative care; G47.30 Sleep apnea, unspecified; Z99.81 Dependence on supplemental oxygen
CPT/HCPCS: 36415; 36600; 71045; 80047; 80048; 80053; 80069; 81001; 82550; 82553; 82803; 82948; 83605; 83735; 84100; 84134; 84145; 84484; 85007; 85018; 85025; 85379; 85610; 85730; 87040; 87070; 87077; 87081; 87088; 87185; 93005; 93306; 94002; 94003; 94640; 94760; 94799; 95816; 99285; A4615; A6196; A6209; A6223; A6250; A6253; A6258; A6446; A6449; A7015; A9900; G0378; J0131; J0171; J0330; J0610; J1644; J1650; J1815; J2270; J2274; J2543; J2930; J3010; J3360; J3370; J3475; J3490; J7030; J7040; J7050; J7070; J7120